=== PATIENT | male | born 1960 | race Hispanic/Latino ===

== ENCOUNTER 2016-11-22 15:03 | Emergency (ER) | payer MEDICAID, OTHER ==
[2016-11-22 15:29] VITALS: TEMP 97.3; O2SAT 95
--- NOTE | 2016-11-22 16:14 | C.PDOC ---
History Of Present Illness 56 y/o male with a hx of diabetes, c/o a laceration to the right lower extremity today. Patient reports throwing out the trash where some object jumped out and cut him. Patient is unsure of what cut him. Notes active bleeding , but denies any other complaints. Time Seen by Provider: 11/22/16 15:30 Chief Complaint (Nursing): Abnormal Skin Integrity History Per: Patient History/Exam Limitations: no limitations Onset/Duration Of Symptoms: Hrs Current Symptoms Are (Timing): Still Present Location Of Injury: Right: Leg Severity: Mild Recent travel outside of the [place]: No Additional History Per: Patient Past Medical History Reviewed: Historical Data, Nursing Documentation, Vital Signs Vital Signs: Last Vital Signs Temp 97.3 F L 11/22/16 15:20 Pulse 104 H 11/22/16 16:50 Resp 20 11/22/16 16:50 BP 154/93 H 11/22/16 16:50 Pulse Ox 95 11/22/16 20:48 - Medical History PMH: HTN Family History: States: Unknown Family Hx - Social History Hx Alcohol Use: Yes Hx Substance Use: No (former) - Immunization History Hx Tetanus Toxoid Vaccination: No Hx Influenza Vaccination: No Hx Pneumococcal Vaccination: No Review Of Systems Constitutional: Negative for: Fever, Chills Gastrointestinal: Negative for: Nausea, Vomiting Skin: Positive for: Lesions (Right lower extremity, active bleeding) Neurological: Negative for: Headache Physical Exam - Physical Exam Appears: Non-toxic, No Acute Distress Skin: Warm, Dry Extremity: Normal ROM, Capillary Refill (<2secs), Other (4cm linear laceration to the lateral right calf. Superficial bleeding controlled at this time.) Neurological/Psych: Oriented x3 ED Course And Treatment O2 Sat by Pulse Oximetry: 95 (RA) Pulse Ox Interpretation: Normal Laceration - Laceration Repair laceration to the right leg Wound Length (In cm): 4 Description Of Wound: Linear Wound Cleansed With: Sterile Saline Anesthesia: Lidocaine 2% (4 ml) Wound Examination: Irrigated With Saline, No FB With Wound Exploration, No Tendon Injury With Wound Exploration Wound Closure: Suture (8) Suture Technique And Material Used: Nylon (4.0) Wound Complexity: Simple Medical Decision Making Medical Decision Making: Impression: * Laceration to the right lower extremity today. Plans: * Tetanus * wound repair Patient tolerated the procedure well with no complications. Wound was cleaned and draped in a sterile fashion. Patient was sent home with care instructions. Patient advised to follow up with PMD for further evaluation and to return if symptoms worsens. Disposition Counseled Patient/Family Regarding: Diagnosis, Need For Followup - Disposition Referrals: [facility] [Outside] Disposition: HOME/ ROUTINE Disposition Time: 16:12 Condition: STABLE Additional Instructions: Refer to your general instructions for suture/wound care. Keep area clean and dry for 48 hours. Return to your doctor or the Emergency Department for suture removal in 10 days. See your doctor or [facility] for wound evaluation in 3 days. Return to the Emergency Department immediately if you have redness, pain, puss drainage from wound. Instructions: Care For Your Stitches (ED), Laceration (ED) Forms: General Discharge Instructions, Work Excuse - POA Present On Arrival: None - Clinical Impression Clinical Impression: Laceration of leg - Scribe Statement The provider has reviewed the documentation as recorded by the Kajalibignacia ruff All medical record entries made by the Kajalibignacia were at my direction and personally dictated by me. I have reviewed the chart and agree that the record accurately reflects my personal performance of the history, physical exam, medical decision making, and the department course for this patient. I have also personally directed, reviewed, and agree with the discharge instructions and disposition.
[2016-11-22 16:51] VITALS: BP 154/93; PULSE 104; RESP 20
== END 2016-11-22 16:50 | disposition home or self-care (01) ==
LOC: C.ER 15:03
DX: S81.811A Laceration without foreign body, right lower leg, initial encounter (principal); W45.8XXA Other foreign body or object entering through skin, initial encounter

== ENCOUNTER 2016-11-30 14:55 | Emergency (ER) | payer OTHER ==
[2016-11-30 15:01] VITALS: BP 136/89; PULSE 104; RESP 20; TEMP 98.4; O2SAT 98
--- NOTE | 2016-11-30 15:15 | C.PDOC ---
History Of Present Illness 56 yo male come in for scheduled sutures removal from Right lower leg after was seen here in ED on 11/22/16 and laceration repaired with sutures. Pt admits, ambulatory without difficulty. denies fever, chills, wound swelling, redness or discharges, denies weakness, sensory or vascular deficits to injured leg. Ambulate to Ed for evaluation, not in any apparent distress. Time Seen by Provider: 11/30/16 15:05 Chief Complaint (Nursing): Suture/Staple Removal History Per: Patient Past Medical History Reviewed: Historical Data, Nursing Documentation, Vital Signs Vital Signs: Last Vital Signs Temp 98.4 F 11/30/16 14:58 Pulse 104 H 11/30/16 14:58 Resp 20 11/30/16 14:58 BP 136/89 11/30/16 14:58 Pulse Ox 98 11/30/16 15:16 - Medical History PMH: HTN Family History: States: Unknown Family Hx - Social History Hx Alcohol Use: Yes Hx Substance Use: No (former) - Immunization History Hx Tetanus Toxoid Vaccination: Yes Hx Influenza Vaccination: No Hx Pneumococcal Vaccination: No Review Of Systems Except As Marked, All Systems Reviewed And Found Negative. Constitutional: Negative for: Fever, Chills Musculoskeletal: Negative for: Leg Pain Skin: Positive for: Lesions Neurological: Negative for: Weakness, Numbness Physical Exam - Physical Exam Appears: Well, Non-toxic, No Acute Distress Skin: Normal Color, Warm, Other (Right leg: well healing laceration to Right lower leg closed with sutures #4, no edema, erythema, no wound draining.) Extremity: Normal ROM (RLE), No Tenderness, No Pedal Edema, No Deformity, No Swelling Neurological/Psych: Oriented x3, Normal Speech, Normal Motor, Normal Sensation, Normal Reflexes ED Course And Treatment O2 Sat by Pulse Oximetry: 98 Progress Note: O re-eval, pt is afebrile, hemodynamicaly stable. NOn-toxic. Ambulatoy rin ED with stable gait. Right leg: sutures removed w/o difficulty # 4. FAROM, no neurovascular deficits, no cellulitis. Pt advised. ref. to f/u with PMD in 2-3 days for re-eavl. return if any new changes. Disposition Counseled Patient/Family Regarding: Diagnosis, Need For Followup - Disposition Referrals: Kemi Marquez MD [Staff Provider] - Disposition: HOME/ ROUTINE Disposition Time: 15:15 Condition: STABLE Additional Instructions: Follow up with PMD in 2 -3 days for re-evaluation. Return to ED if any worsening or new changes. Instructions: Stitches Removal (ED) Forms: [facility] (Serbian) - Clinical Impression Clinical Impression: Removal of suture
== END 2016-11-30 15:25 | disposition home or self-care (01) ==
LOC: C.ER 14:55
DX: Z48.02 Encounter for removal of sutures (principal)

== ENCOUNTER 2017-03-14 16:17 | Inpatient (IN) | payer OTHER ==
--- NOTE | 2017-03-14 16:25 | C.PDOC ---
History Of Present Illness Patient is a 57 y/o M with hx of multiple CVA and tia, on aggrenox, with residual L sided weakness, presenting with worsening weakness since 3pm. Patient reports that at 3pm he developed slurred speech and L sided weakness. At baseline patient able to ambulate independently and has no slurred speech. Denies chest pain or SOB. Time Seen by Provider: 03/14/17 16:20 Past Medical History Vital Signs: Last Vital Signs Temp 97.9 F 03/14/17 19:36 Pulse 98 H 03/14/17 19:36 Resp 20 03/14/17 19:36 BP 136/91 H 03/14/17 19:36 Pulse Ox 96 03/14/17 19:36 - Medical History PMH: HTN Family History: States: Unknown Family Hx - Social History Hx Alcohol Use: Yes Hx Substance Use: No (former) - Immunization History Hx Tetanus Toxoid Vaccination: Yes Hx Influenza Vaccination: No Hx Pneumococcal Vaccination: No Review Of Systems Constitutional: Negative for: Fever Cardiovascular: Negative for: Chest Pain, Palpitations, Light Headedness Respiratory: Negative for: Cough, Shortness of Breath, SOB with Excertion, Wheezing Gastrointestinal: Negative for: Nausea, Vomiting, Abdominal Pain, Diarrhea, Constipation Genitourinary: Negative for: Dysuria Musculoskeletal: Negative for: Neck Pain Neurological: Positive for: Weakness, Incoordination, Change in Speech, Headache Physical Exam - Physical Exam Appears: Well, Non-toxic, No Acute Distress Head: Atraumatic, Normacephalic Eye(s): bilateral: Normal Inspection, PERRL, EOMI Neck: Supple Chest: Symmetrical Cardiovascular: Rhythm Regular Respiratory: Normal Breath Sounds, No Rales, No Rhonchi, No Wheezing Gastrointestinal/Abdominal: Soft, No Tenderness, No Distention Back: Normal Inspection, No CVA Tenderness Extremity: Other (L sided weakness) Neurological/Psych: Oriented x3, No Normal Speech (slurred speech), No Normal Cranial Nerves (L sided facial droop), No Normal Motor ED Course And Treatment - Laboratory Results Result Diagrams: 03/14/17 16:51 03/14/17 16:51 - CT Scan/US CT - Head Other Rad Studies (CT/US): Read By Radiologist, Radiology Report Reviewed CT/US Interpretation: PROCEDURE: CT HEAD WITHOUT CONTRAST. HISTORY: Code Stroke. COMPARISON: None available. TECHNIQUE: Axial computed tomography images were obtained through the head/brain without intravenous contrast. Radiation dose: Total exam DLP = 1022.75 mGy-cm. This CT exam was performed using one or more of the following dose reduction techniques: Automated exposure control, adjustment of the mA and/or kV according to patient size, and/ or use of iterative reconstruction technique. FINDINGS: HEMORRHAGE: No acute parenchymal, subarachnoid or extra-axial hemorrhage. BRAIN: There appears to be minor chronic periventricular white matter ischemic changes. Mild generalized volume loss. Minor vascular calcifications both vertebral arteries. VENTRICLES: No obstructive hydrocephalus. CALVARIUM: Calvarium intact. PARANASAL SINUSES: Minimal mucosal thickening seen within a few ethmoid air cells. MASTOID AIR CELLS: Unremarkable as visualized. No inflammatory changes. OTHER FINDINGS: None. IMPRESSION: No acute intracranial hemorrhage. Minor chronic periventricular white matter ischemic changes CTA Other Rad Studies (CT/US): Read By Radiologist, Radiology Report Reviewed CT/US Interpretation: PROCEDURE: CTA of the neck and brain 03/14/2017. HISTORY : Weakness. COMPARISON: Correlation made with noncontrast CT scan brain obtained earlier same day. TECHNIQUE: Contiguous helical/transaxial images of the neck were obtained from the level of the skull-base to the superior mediastinum in the arteriographic phase of enhancement. Coronal and sagittal reformats or also generated. IV contrast dose: 100 cc Visipaque 320. Radiation Dose - DLP: 665.74 mGy-cm. This CT exam was performed using one or more of the following dose reduction techniques: Automated exposure control, adjustment of the mA and/or kV according to patient size, and/or use of iterative reconstruction technique. FINDINGS: The aorta is widely patent with only minimal calcified plaque along the aortic arch. The origins of the great vessels widely patent. The left and right common carotid arteries widely patent. There is some minimal soft plaque along the left carotid bifurcation that does not appear to result in any significant stenosis. The internal carotid arteries including the petrous, cavernous and supraclinoid segments also widely patent. Visualized major branches of the [place] are also patent. The middle and anterior cerebral arteries and distal vasculature are relatively symmetric as well. No evidence of large aneurysm nor vascular malformation. The cervical vertebral arteries are relatively symmetric and patent throughout. Atherosclerotic plaque changes with significant narrowing of the proximal margin of the intracranial portion left vertebral artery noted at approximately the level of the foramen magnum and at this same level that vascular calcifications seen on prior noncontrast study. . The the vertebral artery distal to this area of stenosis is a patent. Basilar artery patent. The distal posterior cerebral artery is relatively symmetric so far as can be seen. No evidence of large aneurysm nor vascular malformation. Multilevel degenerative spondylosis of the cervical spine. IMPRESSION: There is significant stenosis of the proximal margin left vertebral artery just distal to its entry into the dura at approximately the level of the foramen magnum the. The remaining intracranial circulation is grossly unremarkable without evidence of occlusion significant stenosis or large aneurysm/vascular malformation. Minor soft plaque changes seen at the left carotid bifurcation with no significant stenosis at this level. NIHSS Stroke Scale - Date/Time Evaluation Performed Date Performed: 03/14/17 Time Performed: 16:22 When Was NIHSS Performed: Baseline - How Severe is the Stroke Level of Consciousness: 0=Alert LOC to Questions: 0=Both comments correct LOC to commands: 0=Obeys both correctly Best Gaze: 0=Normal Visual: 0=No visual loss Facial: 3=Complete unilateral paralysis Motor Arm - Left: 2=Falls before 10 sec Motor Arm - Right: 0=No drift Motor Leg - Left: 2=Falls before 5 sec Motor Leg - Right: 0=No drift Limb Ataxia: 0=Absent Sensory: 0=Normal Best Language: 0=No aphasia Dysarthia: 1=Mild to moderate slurring Extinction & Inattention (Neglect): 0=Normal, no object Score: 8 rTPA Inclusion/Exclusion - Refusal of Treatment Patient Refused Treatment: Yes Medical Decision Making Medical Decision Making: Code stroke immediately called. Due to L sided droop, L weakness and droop, CTA ordered in consultation with neurologist Dr. Kennedy. She is requesting additional aggrenox dose. 4:39PM CT head: No acute intracranial hemorrhage. Minor chronic periventricular white matter ischemic changes 4:47PM Had extensive conversation with patient about TPA. He is refusing TPA. He reports prior TPA infusion and was told "you might bleed out." Patient reports that because of this he is refusing TPA. I spoke with patient and sister at length about the risks and benefits of TPA. Patient has almost no movement of L leg and arm and I spoke with them both about recommending TPA to prevent further disability, or . Explained to patient that without TPA this neuro status is likely permanent. Patient is AAOx3 and reports understanding the risks of refusing TPA. Sister at bedside and also understands that patient is refusing standard medical treatment of ischemic stroke. Cpr Ambulance Driver also spoke to patient and sister and continues to refuse TPA. Patient has hx of schizophrenia but has never had POA. 5:04PM EKG shows NSR at 99bpm with 1st degree AV block 5:20PM Spoke to Dr. Kennedy who evaluated patient with video. Facial droop improving and speech improving. She reports that he is not at tpa candidate. Requesting MRI. Admitted to Dr. Marquez for cva/tia 6:21PM MRI unable to be performed due to patient's weight per industrial hygiene technician Disposition - Disposition Disposition: HOSPITALIZED Disposition Time: 16:22 Condition: SERIOUS - Clinical Impression Clinical Impression: CVA (cerebral vascular accident)
[2017-03-14] MEDS ORDERED: Aspirin-Dipyridamole 200-25 mg ER Cap PO STA (16:27)
[2017-03-14] MEDS ORDERED: Iodixanol 320 mg/ml 150 ml Bottle IV ONE (16:30)
--- NOTE | 2017-03-14 16:37 | CT ---
PROCEDURE: CT HEAD WITHOUT CONTRAST. HISTORY: Code Stroke COMPARISON: None available. TECHNIQUE: Axial computed tomography images were obtained through the head/brain without intravenous contrast. Radiation dose: Total exam DLP = 1022.75 mGy-cm. This CT exam was performed using one or more of the following dose reduction techniques: Automated exposure control, adjustment of the mA and/or kV according to patient size, and/or use of iterative reconstruction technique. FINDINGS: HEMORRHAGE: No acute parenchymal, subarachnoid or extra-axial hemorrhage. BRAIN: There appears to be minor chronic periventricular white matter ischemic changes. Mild generalized volume loss. Minor vascular calcifications both vertebral arteries. VENTRICLES: No obstructive hydrocephalus. CALVARIUM: Calvarium intact. PARANASAL SINUSES: Minimal mucosal thickening seen within a few ethmoid air cells MASTOID AIR CELLS: Unremarkable as visualized. No inflammatory changes. OTHER FINDINGS: None. IMPRESSION: No acute intracranial hemorrhage. Minor chronic periventricular white matter ischemic changes
[2017-03-14 16:59] LABS: BASO % 0.4 % (0.0-2.0); EOS # 0.3 K/uL (0.0-0.7); EOS % 2.7 % (0.0-4.0); HEMOGLOBIN 13.9 g/dL (12.0-18.0); LYMPH # 1.5 K/uL (1.0-4.3); MEAN CELL VOLUME 88.4 fL (80.0-94.0); MEAN CORPUSCULAR HEMOGLOBIN 30.8 pg (27.0-31.0); MEAN CORPUSCULAR HGB CONC 34.8 g/dL (33.0-37.0); MEAN PLATELET VOLUME 7.6 fL (7.2-11.7); MONO # 0.9 K/uL (0.0-0.8); MONO % 9.4 % (0.0-10.0); NEUT # 6.9 K/uL (1.8-7.0); NEUT % 71.5 % (50.0-75.0); NRBC % 0.1 % (0.0-2.0); RBC 4.52 Mil/uL (4.40-5.90); RED CELL DISTRIBUTION WIDTH 14.2 % (11.5-14.5); WHITE BLOOD COUNT 9.6 K/uL (4.8-10.8)
[2017-03-14 17:07] LABS: PROTHROMBIN TIME 11.5 SECONDS (9.7-12.2)
[2017-03-14 17:10] LABS: ALB/GLOB RATIO 1.1 (1.0-2.1); ALBUMIN 3.8 g/dL (3.5-5.0); ALT/SGPT 31 U/L (21-72); AST/SGOT 28 U/L (17-59); BLOOD UREA NITROGEN 11 mg/dL (9-20); CALCIUM 9.3 mg/dl (8.6-10.4); GFR AFRICAN-AMERICAN > 60; GFR NON-AFRICAN AMERICAN > 60; HDL CHOLESTEROL 50 mg/dL (30-70)
--- NOTE | 2017-03-14 17:13 | CT ---
PROCEDURE: CTA of the neck and brain 03/14/2017. HISTORY: Weakness COMPARISON: Correlation made with noncontrast CT scan brain obtained earlier same day TECHNIQUE: Contiguous helical/transaxial images of the neck were obtained from the level of the skull-base to the superior mediastinum in the arteriographic phase of enhancement. Coronal and sagittal reformats or also generated. IV contrast dose: 100 cc Visipaque 320 Radiation Dose - DLP: 665.74 mGy-cm This CT exam was performed using one or more of the following dose reduction techniques: Automated exposure control, adjustment of the mA and/or kV according to patient size, and/or use of iterative reconstruction technique. FINDINGS: The aorta is widely patent with only minimal calcified plaque along the aortic arch. The origins of the great vessels widely patent. The left and right common carotid arteries widely patent. There is some minimal soft plaque along the left carotid bifurcation that does not appear to result in any significant stenosis. The internal carotid arteries including the petrous, cavernous and supraclinoid segments also widely patent. Visualized major branches of the [place] of [place] are also patent. The middle and anterior cerebral arteries and distal vasculature are relatively symmetric as well. No evidence of large aneurysm nor vascular malformation. The cervical vertebral arteries are relatively symmetric and patent throughout. Atherosclerotic plaque changes with significant narrowing of the proximal margin of the intracranial portion left vertebral artery noted at approximately the level of the foramen magnum and at this same level that vascular calcifications seen on prior noncontrast study. . The the vertebral artery distal to this area of stenosis is a patent. Basilar artery patent. The distal posterior cerebral artery is relatively symmetric so far as can be seen. No evidence of large aneurysm nor vascular malformation. Multilevel degenerative spondylosis of the cervical spine. IMPRESSION: There is significant stenosis of the proximal margin left vertebral artery just distal to its entry into the dura at approximately the level of the foramen magnum the. The remaining intracranial circulation is grossly unremarkable without evidence of occlusion significant stenosis or large aneurysm/vascular malformation. Minor soft plaque changes seen at the left carotid bifurcation with no significant stenosis at this level.
[2017-03-14 17:21] LABS: LDL CHOLESTEROL 140 mg/dL (0-129)
--- NOTE | 2017-03-14 17:30 | RAD ---
HISTORY: Stroke. Portable study 17:00 COMPARISON: No prior. FINDINGS: LUNGS: No active pulmonary disease. PLEURA: No significant pleural effusion identified, no pneumothorax apparent. CARDIOVASCULAR: Cardiomegaly. No evidence of acute, significant cardiovascular disease. OSSEOUS STRUCTURES: No significant abnormalities. VISUALIZED UPPER ABDOMEN: Normal. OTHER FINDINGS: None. IMPRESSION: No active disease.
[2017-03-15] MEDS ORDERED: Tramadol 25 mg PO STA (01:53)
[2017-03-15] MEDS: Sodium Chloride 0.9% 1,000 ML IV SCH ×2 (01:59→02:30)
--- NOTE | 2017-03-15 07:54 | CP.PCM.PN ---
Subjective - Date & Time of Evaluation Date of Evaluation: 03/15/17 Time of Evaluation: 07:44 - Subjective Subjective: PGY-[address] Marquez's service: Pt seen and examined at bedside. Nursing reports no acute events overnight. Speech therapy at bedside report pt passed swallow evaluation. Patient oriented x 3, talking in complete sentences. Patient reports increased left sided weakness, slurred speech he felt yesterday has completely resolved. He denies headache, vision changes, or weakness in his extremities. He reports feeling anxious and repeatedly is asking questions about "how to know if he has colon cancer." Pt does not fit in the MRI trailer due to his abdominal circumference per aviation safety equipment technician Lorraien, so per instructions from Dr. Phillips, pts neurologist, he will have follow up CT head. Pt reports his right lower abdominal pain from yesterday has nearly subsided after "having a large BM." He denies nausea or vomiting overnight. He has been tolerating diet without issue. He is found drinking oral contrast for CT ordered overnight. Patient is a 57 year old male with hx of multiple CVA and tia, on aggrenox, with residual L sided weakness, who presented to [facility] ED yesterday evening with worsening weakness since 3pm. Patient reports that at 3pm he developed slurred speech and L sided weakness. At baseline patient able to ambulate independently and has no slurred speech. Denies chest pain or SOB. Patient denied recent drug use. Objective - Vital Signs/Intake and Output Vital Signs (last 24 hours): Temp Pulse Resp BP Pulse Ox 97.9 F 90 20 164/79 H 98 03/14/17 23:40 03/15/17 04:00 03/14/17 23:40 03/14/17 23:40 03/14/17 23:40 Intake and Output: 03/15/17 03/15/17 06:59 18:59 Intake Total 640 Balance 640 - Medications Medications: Current Medications Acetaminophen (Tylenol 325mg Tab) 650 mg PO Q4 PRN PRN Reason: Pain, moderate (4-7) Aspirin (Ecotrin) 81 mg PO DAILY [facility]EV[facility] Clonazepam (Klonopin) 0.5 mg PO QID PRN PRN Reason: Anxiety Enoxaparin Sodium (Lovenox) 40 mg SC DAILY STEVE Sodium Chloride (Sodium Chloride 0.9%) 1,000 mls @ 100 mls/hr IV .Q10H STEVE Last Admin: 03/15/17 02:30 Dose: Not Given Insulin Aspart (Novolog) 0 unit SC ACHS [facility]EVE PRN Reason: Protocol Losartan Potassium (Cozaar) 100 mg PO DAILY STEVE - Labs Labs: 03/14/17 16:51 03/14/17 16:51 PT 11.5 SECONDS (9.7-12.2) 03/14/17 16:51 INR 1.0 03/14/17 16:51 APTT 34 SECONDS (21-34) 03/14/17 16:51 - Constitutional Appears: Non-toxic, No Acute Distress - Head Exam Head Exam: ATRAUMATIC, NORMAL INSPECTION - Eye Exam Eye Exam: EOMI, Normal appearance. absent: Scleral icterus Pupil Exam: PERRL - ENT Exam ENT Exam: Mucous Membranes Moist - Neck Exam Neck Exam: Full ROM Additional comments: Due to pt body habitus JVD difficult to assess - Respiratory Exam Respiratory Exam: Clear to Ausculation Bilateral, NORMAL BREATHING PATTERN. absent: Rales, Rhonchi, Wheezes - Cardiovascular Exam Cardiovascular Exam: REGULAR RHYTHM, +S1, +S2 - GI/Abdominal Exam GI & Abdominal Exam: Soft, Tenderness (minimal tenderness to RLQ), Normal Bowel Sounds Additional comments: large body habitus reducible umbilical hernia Negative rovsing, mcburney point, no rebound tenderness - Extremities Exam Extremities Exam: Normal Inspection - Back Exam Back Exam: absent: CVA tenderness (L), CVA tenderness (R) - Neurological Exam Neurological Exam: Alert, Awake, Oriented x3 - Psychiatric Exam Psychiatric exam: Normal Affect, Normal Mood - Skin Skin Exam: Dry, Normal Color, Warm Assessment and Plan - Assessment and Plan (Free Text) Plan: Appendicitis: WBC 9.6, afebrile CT A/P (03/15/17): Distended appendix up to 10mm diameter, with periappendiceal inflammatory changes. Consistent with acute appendicitis. General surgery, Dr. Lemos, help appreciated: - plan for OR tomorrow AM - NPO MN Cipro 400mg IV Q12H (start 03/15/17) Flagyl 500mg IV Q12H (start 03/15/17) Pre-op tests: CXR (03/14/17) NAD Coags WNL EKG (03/14/17): NSR, 1st degree AV block. TIA Hx of CVA with residual left sided weakness EKG (03/14/17): NSR, 1st degree AV block. CTA Head/neck (03/14/17): There is significant stenosis of the proximal margin left vertebral artery just distal to its entry into the dura at approximately the level of the foramen magnum. The remaining intracranial circulation is grossly unremarkable without evidence of occlusion significant stenosis or large aneurysm/vascular malformation. Minor soft plaque changes seen at the left carotid bifurcation with no significant stenosis at this level. - MRI ordered but unable to be completed due to pt habitus CT Head (03/14/17): No acute intracranial hemorrhage. Minor chronic periventricular white matter ischemic changes - follow up CT head (03/15/17): Normal CT head. No intracranial mass, hemorrhage or infarct. Troponin negative x 1 Neurology: Dr. Phillips, help appreciated - continue Aggrenox - f/u UDS - because pt unable to fit into MRI, do follow up CT Head, if negative pt can be discharged Hypertension Well controlled Cozaar 100mg PO Daily HOLD Coreg 25mg PO BID until UDS negative for cocaine Weakness PT/OT: f/u reccs Diabetes Mellitus, Type Two ISS A1C: 8.4 Accuchecks Crestor 20mg PO HS Cozaar 100mg PO Daily Lipid panel: Cholesterol 225, LDL 140, HDL 50, Triglycerides 186 Anxiety Klonopin 0.5mg QID PO PRN BPH Flomax 0.4mg PO Daily Hx Substance Abuse f/u UDS - pt denies cocaine for last 4 months Prophylaxis Lovenox 40mg SC Daily Protonix 40mg PO Daily SCDs Miguel Angel Gardiner PGY-2 All medical management per DR. MARQUEZ
[2017-03-15] MEDS: (Novolog) Insulin Aspart, Recombinant 100 u/ml 10 ml vial SC SCH ×4 (08:00→22:00)
[2017-03-15] MEDS ORDERED: Iohexol 240 (50 ml) PO ONE (08:45)
[2017-03-15] MEDS ORDERED: Enoxaparin 40 mg Syringe SC SCH (10:00)
--- NOTE | 2017-03-15 13:17 | CT ---
PROCEDURE: CT HEAD WITHOUT CONTRAST. HISTORY: unable to have MRI; hx CVA; f/u CT from yesterday COMPARISON: None available. TECHNIQUE: Axial computed tomography images were obtained through the head/brain without intravenous contrast. Radiation dose: Total exam DLP = 980.06 mGy-cm. This CT exam was performed using one or more of the following dose reduction techniques: Automated exposure control, adjustment of the mA and/or kV according to patient size, and/or use of iterative reconstruction technique. FINDINGS: HEMORRHAGE: No intracranial hemorrhage. BRAIN: No mass effect or edema. Minimal chronic periventricular white matter ischemic change. VENTRICLES: Unremarkable. No hydrocephalus. CALVARIUM: Unremarkable. PARANASAL SINUSES: Deviated nasal septum towards the right. No evidence of sinusitis. MASTOID AIR CELLS: Unremarkable as visualized. No inflammatory changes. OTHER FINDINGS: None. IMPRESSION: Normal CT of the Head. No intracranial mass, hemorrhage or evidence of acute infarct.
--- NOTE | 2017-03-15 13:42 | CT ---
PROCEDURE: CT Abdomen and Pelvis without intravenous contrast HISTORY: RLQ abdominal pain COMPARISON: None. TECHNIQUE: Without contrast.. Contrast Dose: 0 Radiation dose: Total exam DLP = 1095.99 mGy-cm. This CT exam was performed using one or more of the following dose reduction techniques: Automated exposure control, adjustment of the mA and/or kV according to patient size, and/or use of iterative reconstruction technique. FINDINGS: LOWER THORAX: Unremarkable. LIVER: Mild hepatomegaly. Diffusely diminished attenuation consistent with fatty infiltration. No focal mass. Smooth contour. No biliary dilatation. GALLBLADDER AND BILE DUCTS: Probable tiny dependent calculi in gallbladder neck. This is demonstrated on series 3, image 58. No mural thickening. No pericholecystic fluid. PANCREAS: Unremarkable. No gross lesion or ductal dilatation. SPLEEN: Unremarkable. ADRENALS: Unremarkable. No mass. KIDNEYS AND URETERS: Two left renal cysts. Upper pole, 5.3 cm. Lower pole parapelvic, 2.5 cm. No calculus. No hydronephrosis. VASCULATURE: Unremarkable. No aortic aneurysm. BOWEL: Unremarkable. No obstruction. No gross mural thickening. APPENDIX: Distended appendix up to 10 mm diameter, with periappendiceal inflammatory change. Findings consistent with acute appendicitis. No periappendiceal abscess. PERITONEUM: Unremarkable. No free fluid. No free air. LYMPH NODES: Unremarkable. No enlarged lymph nodes. BLADDER: Nondistended REPRODUCTIVE: Normal size. Coarse central calcification. BONES: No acute fracture. OTHER FINDINGS: None. IMPRESSION: Findings consistent with acute uncomplicated appendicitis. Hepatomegaly with fatty infiltration. Left renal cysts. The above findings were discussed by telephone with the nurse, Chandrika, on 6T, at 1:30 p.m. on 03/15/2017.
--- NOTE | 2017-03-15 13:57 | CON ---
DATE: HISTORY OF PRESENT ILLNESS: This is a 57-year-old white male with past medical history of multiple TIAs and CVA, on Aggrenox and with a residual left-sided weakness and came to the hospital with worsening of his weakness and also reported was slurred speech and slight left-sided weakness. Past medical history of high blood pressure, CVA and called to evaluate the patient. The patient is ambulating in the hallway. PAST MEDICAL HISTORY: Hypertension and CVA, TIA. SOCIAL HISTORY: Drinks. REVIEW OF SYSTEMS: Ten-point review of systems was negative except residual weakness of the left side. PHYSICAL EXAMINATION: HEENT: Normocephalic, atraumatic. NECK: Supple. NEUROLOGIC: Alert, awake, oriented x3. No aphasia. Cranial nerves II through XII were tested. Pupils reactive. EOM intact. Visual filed full. No facial asymmetry. Tongue midline. Motor examination: Moves all the extremity equally. Tone normal. Deep tendon reflexes 1+. Both plantars downgoing. Sensory appears intact. Cerebellar and gait, ambulating. IMPRESSION: Multiple transient ischemic attacks. CAT scan of the head did not show any acute stroke or no bleed. LABORATORY DATA: WBC 9.6, hemoglobin 13.9, hematocrit 40, platelet 252. Sodium 134, potassium 3.7, chloride 99, CO2 of 30, glucose 151, BUN 11, creatinine 0.7. PLAN: Continue present management. Aggrenox 1 p.o. twice a day. We will follow up. Walt Phillips MD
[2017-03-15 14:25] LABS: BARBITURATES, UR NEGATIVE (NEGATIVE); BENZODIAZEPINES, UR NEGATIVE (NEGATIVE); OPIATES, UR NEGATIVE (NEGATIVE); PHENCYCLIDINE, UR NEGATIVE (NEGATIVE)
[2017-03-15] MEDS: Pantoprazole 40 mg EC Tab PO SCH (17:12)
[2017-03-15] MEDS: metroNIDAZOLE IV 500 mg/100 ml 500 MG/100 ML BAG IVPB SCH (17:13)
[2017-03-15] MEDS: Ciprofloxacin 400mg/200ml D5W 400 MG/200 ML BAG IVPB SCH (17:13)
--- NOTE | 2017-03-15 17:52 | CP.PCM.CON ---
History of Present Illness - History of Present Illness History of Present Illness: General Surgery consult for Dr. Lemos Reasons for consult: Acute Appendictis 57 year old male with PMH of TIA/CVA who presents with RLQ abdominal pain that began yesterday morning. He also concurrently expereinced a TIA leading to left hemiplegia and left facial droop with slurred speech later that afternoon. The patient was brought to the ED by his family and managed by neurology primarily for his TIA. The patient reports that his RLQ abdominal pain has been constant since yesterday morning but has lessened in severity from a 9/10 on admission to a 4/10 currently on the VAS, after he was given Tylenol and Tramadol. The patient states that his pain worsens with eating and gets better with standing. He describes his pain as throbbing in nature and denies any radiation of the pain. The patient admits to nausea, diarrhea, weakness, and blurry vision on his left eye. He denies fevers/chills, headache, chest pain, palpitations, dyspnea, cough, vomiting, constipation, or dysuria. Positive Rovsings, obturator, and psoas signs are ellicited. Abdominal CT imaging reveals a distended appendix up to 10 mm diameter, with periappendicial inflammatory change consistent with acute appedicitis without abscess. PMH:Umbilical Hernia and direct abdominal hernia 6-8 years ago (neither treated ) , stenosis of the left vertebral artery, 7-8 TIA/CVA episodes beginning last July, Diabetes, HTN, Hypercholesteremia, Bipolar Disorder, Prostate cancer ( treated) PSH:Prostate cancer resection, Angioplasty (Feb 29 2016), Temporal artery cuaterization (head trauma in 2010) FHx:Diabetes, Heart Disease Allergies: Penicillin Social Hx:Denies Alcohol. Denies Tobacco. Admits to history of cocaine use, last use was August 21 2016. Medications: As per EMR Review of Systems - Review of Systems All systems: reviewed and no additional remarkable complaints except Review of Systems: As per HPI Past Patient History - Infectious Disease Hx of Infectious Diseases: None - Past Medical History & Family History Past Medical History?: Yes - Past Social History Smoking Status: Never Smoked - CARDIAC Hx Hypertension: Yes - NEUROLOGICAL HX Cerebrovascular Accident: Yes (residual left arm weakness) - ENDOCRINE/METABOLIC Hx Endocrine Disorders: Yes Hx Diabetes Mellitus Type 2: Yes - MUSCULOSKELETAL/RHEUMATOLOGICAL Hx Falls: Yes (from effects of TIA) - PSYCHIATRIC Hx Substance Use: No (former) - SURGICAL HISTORY Hx Surgeries: Yes Other/Comment: cranial aneurysm - ANESTHESIA Hx Anesthesia: Yes Hx Anesthesia Reactions: No Meds Allergies/Adverse Reactions: Allergies Allergy/AdvReac Type Severity Reaction Status Date / Time Penicillins Allergy Verified 11/30/16 15:01 - Medications Medications: Current Medications Acetaminophen (Tylenol 325mg Tab) 650 mg PO Q4 PRN PRN Reason: Pain, moderate (4-7) Carvedilol (Coreg) 25 mg PO BID [facility] Last Admin: 03/15/17 10:01 Dose: 25 mg Clonazepam (Klonopin) 0.5 mg PO QID PRN PRN Reason: Anxiety Dipyridamole/Aspirin (Aggrenox 25-200 Mg) 1 ea PO BID [facility] Last Admin: 03/15/17 17:13 Dose: 1 ea Divalproex Sodium (Depakote Dr) 1,500 mg PO 1000 STEVE Divalproex Sodium (Depakote Dr) 1,500 mg PO 2200 [facility] Ciprofloxacin (Cipro 400mg/200ml Dsw) 400 mg in 200 mls @ 133 mls/hr IVPB Q12H [facility] Last Admin: 03/15/17 17:13 Dose: 133 mls/hr Metronidazole (Flagyl) 500 mg in 100 mls @ 100 mls/hr IVPB Q8H [facility] Last Admin: 03/15/17 17:13 Dose: 100 mls/hr Insulin Aspart (Novolog) 0 unit SC ACHS [facility] PRN Reason: Protocol Last Admin: 03/15/17 17:33 Dose: Not Given Losartan Potassium (Cozaar) 100 mg PO DAILY [facility] Last Admin: 03/15/17 10:01 Dose: 100 mg Pantoprazole Sodium (Protonix Ec Tab) 40 mg PO Q24H [facility] Last Admin: 03/15/17 17:12 Dose: 40 mg Pneumococcal Polyvalent Vaccine (Pneumovax 23 Vaccine) 0.5 ml IM .ONCE ONE Stop: 03/16/17 10:01 Rosuvastatin Calcium (Crestor) 20 mg PO [facility] Physical Exam - Constitutional Appears: Well - Head Exam Head Exam: NORMAL INSPECTION Additional comments: Left sided Facial Droop - Eye Exam Pupil Exam: NORMAL ACCOMODATION Additional comments: Left eye has "blurry vision" - ENT Exam ENT Exam: Normal Exam - Neck Exam Neck exam: Positive for: Normal Inspection - Respiratory Exam Respiratory Exam: NORMAL BREATHING PATTERN - Cardiovascular Exam Cardiovascular Exam: REGULAR RHYTHM, RRR, +S1, +S2 - GI/Abdominal Exam GI & Abdominal Exam: Hernia, Soft, Tenderness. absent: Distended, Firm, Guarding Additional comments: TTP in RLQ - Extremities Exam Extremities exam: Positive for: normal inspection - Back Exam Back exam: NORMAL INSPECTION - Neurological Exam Neurological exam: Alert, Oriented x3 Additional comments: CN 7 palsy on left side Left side blurry vision Left UE and LE 3/5 motor strength normal cutaneous sensation b/l UE and LE - Psychiatric Exam Psychiatric exam: Normal Affect, Normal Mood - Skin Skin Exam: Intact, Normal Color Results - Vital Signs Recent Vital Signs: Last Vital Signs Temp 97.6 F 03/15/17 15:35 Pulse 90 03/15/17 15:35 Resp 18 03/15/17 15:35 BP 120/81 03/15/17 15:35 Pulse Ox 96 03/15/17 15:35 - Labs Result Diagrams: 03/14/17 16:51 03/14/17 16:51 Labs: Laboratory Results - last 24 hr 03/14/17 03/15/17 03/15/17 21:33 02:14 06:32 POC Glucose (mg/dL) 184 H 147 H 101 Urine Opiates Screen Urine Methadone Screen Ur Barbiturates Screen Ur Phencyclidine Scrn Ur Amphetamines Screen U Benzodiazepines Scrn U Oth Cocaine Metabols U Cannabinoids Screen 03/15/17 03/15/17 03/15/17 12:05 13:51 16:59 POC Glucose (mg/dL) 148 H 122 H Urine Opiates Screen Negative Urine Methadone Screen Negative Ur Barbiturates Screen Negative Ur Phencyclidine Scrn Negative Ur Amphetamines Screen Negative U Benzodiazepines Scrn Negative U Oth Cocaine Metabols Negative U Cannabinoids Screen Negative Assessment & Plan - Assessment and Plan (Free Text) Assessment: 57 year old male presents with Left Hemiplegia and RLQ pain, Abdominal CT reveals Acute Appendicitis Plan: - OR tomorrow at 8am for Laproscopic Appendectomy - NPO past MN - Hold Lovenox - Pain control - IV Antibiotics - Glucose control - Discussed with Dr. Aminta Moss PGY1 - Date & Time Date: 03/15/17 Time: 16:55
[2017-03-15] MEDS ORDERED: Aspirin-Dipyridamole 200-25 mg ER Cap PO SCH (18:00)
[2017-03-15] MEDS: Divalproex 500 mg DR Tab PO SCH (21:47)
[2017-03-16] MEDS: metroNIDAZOLE IV 500 mg/100 ml 500 MG/100 ML BAG IVPB SCH ×3 (00:13→16:20)
[2017-03-16] MEDS: Ciprofloxacin 400mg/200ml D5W 400 MG/200 ML BAG IVPB SCH ×2 (05:07→17:28)
[2017-03-16 07:32] LABS: BASO % 0.4 % (0.0-2.0); EOS # 0.3 K/uL (0.0-0.7); EOS % 4.6 % (0.0-4.0); HEMOGLOBIN 13.3 g/dL (12.0-18.0); LYMPH # 1.6 K/uL (1.0-4.3); LYMPH % 24.8 % (20.0-40.0); MEAN CELL VOLUME 88.7 fL (80.0-94.0); MEAN CORPUSCULAR HEMOGLOBIN 31.1 pg (27.0-31.0); MEAN CORPUSCULAR HGB CONC 35.1 g/dL (33.0-37.0); MONO # 0.8 K/uL (0.0-0.8); MONO % 12.3 % (0.0-10.0); NEUT # 3.7 K/uL (1.8-7.0); NEUT % 57.9 % (50.0-75.0); RBC 4.27 Mil/uL (4.40-5.90); RED CELL DISTRIBUTION WIDTH 14.3 % (11.5-14.5); WHITE BLOOD COUNT 6.4 K/uL (4.8-10.8)
[2017-03-16] MEDS: (Novolog) Insulin Aspart, Recombinant 100 u/ml 10 ml vial SC SCH ×4 (07:54→21:37)
[2017-03-16 07:59] LABS: ALB/GLOB RATIO 1.1 (1.0-2.1); ALBUMIN 3.6 g/dL (3.5-5.0); ALT/SGPT 28 U/L (21-72); AST/SGOT 22 U/L (17-59); BLOOD UREA NITROGEN 13 mg/dL (9-20); CALCIUM 9.2 mg/dl (8.6-10.4); GFR AFRICAN-AMERICAN > 60; GFR NON-AFRICAN AMERICAN > 60; MAGNESIUM 1.7 mg/dL (1.6-2.3)
[2017-03-16] MEDS ORDERED: Midazolam 2 MG/2 ML VIAL ONE (08:21)
[2017-03-16] MEDS ORDERED: Propofol 10 mg/ml Inj (20 ML) ONE (08:21)
[2017-03-16] MEDS ORDERED: Succinylcholine Chloride 20 mg/ml Syr (5 ml) IV ONE (08:26)
[2017-03-16] MEDS ORDERED: Rocuronium 10 mg/ml (5 ml) ONE ×2 (08:26→09:57)
[2017-03-16] MEDS ORDERED: Phenylephrine 10 mg/ml Inj ONE (08:44)
[2017-03-16] MEDS ORDERED: Pneumococcal 23-Valent Vaccine IM ONE (10:00)
[2017-03-16] MEDS ORDERED: Morphine 4 MG/ML VIAL ONE (10:09)
[2017-03-16] MEDS ORDERED: Neostigmine Methylsulfate 3mg/3ml Syringe IV ONE (10:45)
--- NOTE | 2017-03-16 11:05 | PCM.SURG1 ---
Surgeon's Initial Post Op Note - Surgeon's Notes Surgeon: Dr. Lemos Aircraft Maintenance Supervisor: Dr. Pineda PGY2 Type of Anesthesia: General Endo Pre-Operative Diagnosis: Acute Appendicitis Operative Findings: See operative dictation Post-Operative Diagnosis: Chronic Appendicitis Operation Performed: Open appendectomy, Umbilical Hernia Repair Specimen/Specimens Removed: Appendix Estimated Blood Loss: EBL {In ML}: 20 Blood Products Given: N/A Drains Used: No Drains Post-Op Condition: Good Date of Surgery/Procedure: 03/16/17 Time of Surgery/Procedure: 11:06
[2017-03-16] MEDS: Divalproex 500 mg DR Tab PO SCH ×2 (14:33→21:36)
[2017-03-16 16:38] VITALS: RESP 20
[2017-03-16] MEDS: Pantoprazole 40 mg EC Tab PO SCH (17:27)
[2017-03-17] MEDS: Ciprofloxacin 400mg/200ml D5W 400 MG/200 ML BAG IVPB SCH ×2 (04:03→17:16)
[2017-03-17] MEDS: (Novolog) Insulin Aspart, Recombinant 100 u/ml 10 ml vial SC SCH ×4 (07:59→22:35)
[2017-03-17] MEDS: metroNIDAZOLE IV 500 mg/100 ml 500 MG/100 ML BAG IVPB SCH ×3 (08:28→16:45)
--- NOTE | 2017-03-17 08:56 | CP.PCM.PN ---
Subjective - Date & Time of Evaluation Date of Evaluation: 03/17/17 Time of Evaluation: 08:53 - Subjective Subjective: General Surgery Progress note for Dr. Lemos Pt seen and examined this AM at bedside. Tolerating diet, pain well controlled, ambulating passing gas moving bowels.Overall doing very well post operatively. Objective - Vital Signs/Intake and Output Vital Signs (last 24 hours): Temp Pulse Resp BP Pulse Ox 98.2 F 107 H 20 130/86 94 L 03/17/17 04:51 03/17/17 04:51 03/17/17 04:51 03/17/17 04:51 03/17/17 04:51 Intake and Output: 03/17/17 03/17/17 06:59 18:59 Intake Total 820 Balance 820 - Medications Medications: Current Medications Acetaminophen (Tylenol 325mg Tab) 650 mg PO Q4 PRN PRN Reason: Pain, Mild (1-3) Carvedilol (Coreg) 25 mg PO BID [facility] Last Admin: 03/16/17 17:36 Dose: 25 mg Clonazepam (Klonopin) 0.5 mg PO QID PRN PRN Reason: Anxiety Dipyridamole/Aspirin (Aggrenox 25-200 Mg) 1 ea PO BID [facility] Last Admin: 03/15/17 17:13 Dose: 1 ea Divalproex Sodium (Depakote Dr) 1,500 mg PO 1000 [facility] Last Admin: 03/16/17 14:33 Dose: Not Given Divalproex Sodium (Depakote Dr) 1,500 mg PO 2200 [facility] Last Admin: 03/16/17 21:36 Dose: 1,500 mg Hydromorphone HCl (Dilaudid) 2 mg IVP Q4H PRN PRN Reason: Pain, moderate (4-7) Last Admin: 03/17/17 04:00 Dose: 2 mg Ciprofloxacin (Cipro 400mg/200ml Dsw) 400 mg in 200 mls @ 133 mls/hr IVPB Q12H [facility] Last Admin: 03/17/17 04:03 Dose: 133 mls/hr Metronidazole (Flagyl) 500 mg in 100 mls @ 100 mls/hr IVPB Q8H [facility] Last Admin: 03/17/17 08:28 Dose: 100 mls/hr Insulin Aspart (Novolog) 0 unit SC ACHS [facility] PRN Reason: Protocol Last Admin: 03/17/17 07:59 Dose: Not Given Losartan Potassium (Cozaar) 100 mg PO DAILY [facility] Last Admin: 03/16/17 14:33 Dose: Not Given Pantoprazole Sodium (Protonix Ec Tab) 40 mg PO Q24H [facility] Last Admin: 03/16/17 17:27 Dose: 40 mg Rosuvastatin Calcium (Crestor) 20 mg PO HS [facility] Last Admin: 03/16/17 21:36 Dose: 20 mg - Labs Labs: 03/16/17 07:17 03/16/17 07:17 PT 11.5 SECONDS (9.7-12.2) 03/14/17 16:51 INR 1.0 03/14/17 16:51 APTT 34 SECONDS (21-34) 03/14/17 16:51 - Constitutional Appears: Non-toxic, No Acute Distress - Head Exam Head Exam: ATRAUMATIC, NORMOCEPHALIC - Eye Exam Eye Exam: EOMI, Normal appearance - ENT Exam ENT Exam: Mucous Membranes Moist - Respiratory Exam Respiratory Exam: NORMAL BREATHING PATTERN - Cardiovascular Exam Cardiovascular Exam: +S1, +S2 - GI/Abdominal Exam GI & Abdominal Exam: Soft. absent: Firm, Guarding, Rigid, Tenderness Additional comments: Dressings clean dry and intact - Neurological Exam Neurological Exam: Alert, Awake - Psychiatric Exam Psychiatric exam: Normal Affect, Normal Mood - Skin Skin Exam: Dry, Intact Assessment and Plan - Assessment and Plan (Free Text) Assessment: 57M POD#1 s/p open appy and doing well regular diet ambulate pain control abx d/w Dr. Aminta Pineda PGY2
[2017-03-17] MEDS: Oxycodone/Acetaminophen 5/325 mg Tab PO PRN ×3 (09:51→22:50)
[2017-03-17] MEDS: Divalproex 500 mg DR Tab PO SCH ×2 (09:52→22:33)
[2017-03-17] MEDS: Pantoprazole 40 mg EC Tab PO SCH (17:16)
[2017-03-17 18:43] VITALS: O2SAT 95
[2017-03-18] MEDS: metroNIDAZOLE IV 500 mg/100 ml 500 MG/100 ML BAG IVPB SCH ×2 (00:04→08:30)
[2017-03-18] MEDS: Ciprofloxacin 400mg/200ml D5W 400 MG/200 ML BAG IVPB SCH (05:25)
[2017-03-18] MEDS: Oxycodone/Acetaminophen 5/325 mg Tab PO PRN ×2 (05:36→11:51)
[2017-03-18 07:51] LABS: BASO % 0.3 % (0.0-2.0); EOS # 0.2 K/uL (0.0-0.7); EOS % 2.5 % (0.0-4.0); HEMOGLOBIN 12.7 g/dL (12.0-18.0); LYMPH # 1.6 K/uL (1.0-4.3); LYMPH % 18.7 % (20.0-40.0); MEAN CELL VOLUME 89.8 fL (80.0-94.0); MEAN CORPUSCULAR HEMOGLOBIN 31.2 pg (27.0-31.0); MEAN CORPUSCULAR HGB CONC 34.8 g/dL (33.0-37.0); MEAN PLATELET VOLUME 7.9 fL (7.2-11.7); MONO # 1.2 K/uL (0.0-0.8); MONO % 13.9 % (0.0-10.0); NEUT # 5.6 K/uL (1.8-7.0); NEUT % 64.6 % (50.0-75.0); RBC 4.08 Mil/uL (4.40-5.90); RED CELL DISTRIBUTION WIDTH 14.3 % (11.5-14.5); WHITE BLOOD COUNT 8.7 K/uL (4.8-10.8)
--- NOTE | 2017-03-18 07:53 | OP ---
PROCEDURE DATE: 03/16/2017 PREOPERATIVE DIAGNOSIS: Appendicitis. POSTOPERATIVE DIAGNOSIS: Appendicitis. PROCEDURE CARRIED OUT: Attempted laparoscopic and then open appendectomy. SURGEON: Jerome Lemos Jr., MD. EXPORT SPECIALIST: Carter Pineda DO ANESTHESIA ADMINISTERED BY: Bhupendra Silva. INDICATIONS: The patient is a 57-year-old man who was admitted to the hospital with neurological problems. I was asked to see on an urgent basis because of abdominal pain. Minimal tenderness in the right upper quadrant and abnormal CAT scan. OPERATIVE FINDINGS: The appendix was chronically inflamed. There were a lot of adhesions around the area, this was probably appendicitis in the past that has mouldered over. The rest of the intraoperative findings were unremarkable except for adhesions in the right lower quadrant, and a contorted and very developed appendix. DESCRIPTION OF PROCEDURE: Patient was given general anesthesia, intravenous antibiotics; Venodyne boots were applied. Amrit trocars, two 12's and one 5 were inserted via the umbilicus location in the left lower quadrant. The appendix was visualized and was grasped. Initially, we could identify and then dissect it. However, I was concerned I was not seeing the base of the appendix. Prior to further dissection we were unable to completely visualize the base of the appendix. Because of this, we then converted to an open technique and we were able to securely identify the base of the appendix and take it out. This was a densely inflamed area with numerous adhesions to the cecum and to the surrounding tissues indicating probably chronic infection in the past. Nonetheless, the appendix was grasped to the mesoappendix, divided with use of a ligature device, and the base stapling device. We then removed it. We then closed the abdomen with running sutures of Novafil and PDS. We closed the umbilical incision, which was a large chronically incarcerated hernia, but this is not a final repair as we could not use mesh because the appendix being removed at the same time and because there is also a very large diastasis recti. So, we closed the fascial defect that we have recreated as well as the fascial defect of the umbilical hernia. We then closed the skin with shahzad. Procedure was terminated. Blood loss of the procedure was less than 25 mL upon estimation. BASIC FINDINGS: Chronically inflamed appendix with multiple lesions in the area from previous inflammation. Jerome Lemos Jr., MD cc: Dr. Marquez.
[2017-03-18] MEDS: (Novolog) Insulin Aspart, Recombinant 100 u/ml 10 ml vial SC SCH ×2 (08:30→11:58)
[2017-03-18 08:44] LABS: ALBUMIN 3.7 g/dL (3.5-5.0); ALT/SGPT 19 U/L (21-72); AST/SGOT 24 U/L (17-59); BLOOD UREA NITROGEN 12 mg/dL (9-20); CALCIUM 9.3 mg/dl (8.6-10.4); GFR AFRICAN-AMERICAN > 60; GFR NON-AFRICAN AMERICAN > 60; MAGNESIUM 1.6 mg/dL (1.6-2.3)
--- NOTE | 2017-03-18 08:51 | HP ---
HISTORY OF PRESENT ILLNESS: Patient is a 57-year-old male admitted to hospital with sudden onset of numbness and weakness of left side of body and slight slurred speech lasting for 2 hours according to the patient. Patient denies using any drugs and denies drinking. Patient has history of hypertension, diabetes, history of CVA in the past. PHYSICAL EXAMINATION: GENERAL: Patient is awake, alert, oriented. VITAL SIGNS: Temperature 98, pulse is 90, blood pressure 130/80. HEENT: Within normal limits. NECK: Supple. CHEST: Symmetrical. HEART: Regular. ABDOMEN: Soft. EXTREMITIES: No edema. NEUROLOGIC: Normal. IMPRESSION AND PLAN: Patient suffered from transient ischemic attack/cerebrovascular accident. Patient bed rest, neuro check. We will get MRI of the brain, Neurology consult. Kemi Marquez MD
[2017-03-18] MEDS: Divalproex 500 mg DR Tab PO SCH (09:58)
[2017-03-18 10:01] VITALS: BP 122/80
--- NOTE | 2017-03-18 10:53 | CP.PCM.PN ---
Subjective - Date & Time of Evaluation Date of Evaluation: 03/18/17 Time of Evaluation: 10:50 - Subjective Subjective: General Surgery Progress Note for Dr. Lemos This 57M Was seen and examined this AM at bedside. He reports flatus, BM he is ambulating urinating tolerating diet, pain well controlled with percocet. Objective - Vital Signs/Intake and Output Vital Signs (last 24 hours): Temp Pulse Resp BP Pulse Ox 98.1 F 96 H 20 122/80 95 03/17/17 23:40 03/18/17 00:00 03/17/17 23:40 03/18/17 09:59 03/17/17 23:40 Intake and Output: 03/18/17 03/18/17 06:59 18:59 Intake Total 800 Balance 800 - Medications Medications: Current Medications Acetaminophen (Tylenol 325mg Tab) 650 mg PO Q4 PRN PRN Reason: Pain, Mild (1-3) Carvedilol (Coreg) 25 mg PO BID [facility] Last Admin: 03/18/17 09:59 Dose: 25 mg Clonazepam (Klonopin) 0.5 mg PO QID PRN PRN Reason: Anxiety Last Admin: 03/17/17 09:52 Dose: 0.5 mg Dipyridamole/Aspirin (Aggrenox 25-200 Mg) 1 ea PO BID [facility] Last Admin: 03/15/17 17:13 Dose: 1 ea Divalproex Sodium (Depakote Dr) 1,500 mg PO 1000 [facility] Last Admin: 03/18/17 09:58 Dose: 1,500 mg Divalproex Sodium (Depakote Dr) 1,500 mg PO 2200 [facility] Last Admin: 03/17/17 22:33 Dose: 1,500 mg Ciprofloxacin (Cipro 400mg/200ml Dsw) 400 mg in 200 mls @ 133 mls/hr IVPB Q12H [facility] Last Admin: 03/18/17 05:25 Dose: 133 mls/hr Metronidazole (Flagyl) 500 mg in 100 mls @ 100 mls/hr IVPB Q8H [facility] Last Admin: 03/18/17 08:30 Dose: 100 mls/hr Insulin Aspart (Novolog) 0 unit SC ACHS [facility] PRN Reason: Protocol Last Admin: 03/18/17 08:30 Dose: Not Given Losartan Potassium (Cozaar) 100 mg PO DAILY [facility] Last Admin: 03/18/17 09:59 Dose: 100 mg Oxycodone/Acetaminophen (Percocet 5/325 Mg Tab) 1 tab PO Q4H PRN PRN Reason: Pain, moderate (4-7) Stop: 03/20/17 08:59 Last Admin: 03/18/17 05:36 Dose: 1 tab Pantoprazole Sodium (Protonix Ec Tab) 40 mg PO Q24H [facility] Last Admin: 03/17/17 17:16 Dose: 40 mg Rosuvastatin Calcium (Crestor) 20 mg PO HS [facility] Last Admin: 03/17/17 22:33 Dose: 20 mg - Labs Labs: 03/18/17 07:30 03/18/17 07:30 PT 11.5 SECONDS (9.7-12.2) 03/14/17 16:51 INR 1.0 03/14/17 16:51 APTT 34 SECONDS (21-34) 03/14/17 16:51 - Constitutional Appears: Non-toxic, No Acute Distress - Head Exam Head Exam: ATRAUMATIC, NORMOCEPHALIC - Eye Exam Eye Exam: EOMI, Normal appearance - ENT Exam ENT Exam: Mucous Membranes Moist - Respiratory Exam Respiratory Exam: NORMAL BREATHING PATTERN - Cardiovascular Exam Cardiovascular Exam: +S1, +S2 - GI/Abdominal Exam GI & Abdominal Exam: Soft. absent: Guarding, Rigid, Tenderness - Neurological Exam Neurological Exam: Alert, Awake - Psychiatric Exam Psychiatric exam: Normal Affect, Normal Mood - Skin Skin Exam: Dry, Intact Assessment and Plan - Assessment and Plan (Free Text) Assessment: This 57M POD#2 s/p Lap converted to open Appy and doing well Patient is clear for discharge at the discretion of the primary care doctor. Followup with Dr. Lemos in 10-14 days for staple removal and post op check D/W Dr. Aminta Pineda PGY2
--- NOTE | 2017-03-18 11:14 | CP.PCM.PN ---
Subjective - Date & Time of Evaluation Date of Evaluation: 03/18/17 Time of Evaluation: 07:00 - Subjective Subjective: PGY [address] Marquez: Patient was see and examined at bedside this morning. He was ambulating well around the hospital floors. He was awake alert and oriented and denied any pain. He admits to passing gas but not BM. He is tolerating his diet without N/ V. Denied calf tenderness, chest pain, palpitations, SOB, numbness or tingling. Patient has been using the incentive spirometer. No new complaints today. Objective - Vital Signs/Intake and Output Vital Signs (last 24 hours): Temp Pulse Resp BP Pulse Ox 98.1 F 96 H 20 122/80 95 03/17/17 23:40 03/18/17 00:00 03/17/17 23:40 03/18/17 09:59 03/17/17 23:40 Intake and Output: 03/18/17 03/18/17 06:59 18:59 Intake Total 800 Balance 800 - Medications Medications: Current Medications Acetaminophen (Tylenol 325mg Tab) 650 mg PO Q4 PRN PRN Reason: Pain, Mild (1-3) Carvedilol (Coreg) 25 mg PO BID [facility] Last Admin: 03/18/17 09:59 Dose: 25 mg Clonazepam (Klonopin) 0.5 mg PO QID PRN PRN Reason: Anxiety Last Admin: 03/17/17 09:52 Dose: 0.5 mg Dipyridamole/Aspirin (Aggrenox 25-200 Mg) 1 ea PO BID [facility] Last Admin: 03/15/17 17:13 Dose: 1 ea Divalproex Sodium (Depakote Dr) 1,500 mg PO 1000 [facility] Last Admin: 03/18/17 09:58 Dose: 1,500 mg Divalproex Sodium (Depakote Dr) 1,500 mg PO 2200 [facility] Last Admin: 03/17/17 22:33 Dose: 1,500 mg Ciprofloxacin (Cipro 400mg/200ml Dsw) 400 mg in 200 mls @ 133 mls/hr IVPB Q12H [facility] Last Admin: 03/18/17 05:25 Dose: 133 mls/hr Metronidazole (Flagyl) 500 mg in 100 mls @ 100 mls/hr IVPB Q8H [facility] Last Admin: 03/18/17 08:30 Dose: 100 mls/hr Insulin Aspart (Novolog) 0 unit SC ACHS [facility] PRN Reason: Protocol Last Admin: 03/18/17 08:30 Dose: Not Given Losartan Potassium (Cozaar) 100 mg PO DAILY [facility] Last Admin: 03/18/17 09:59 Dose: 100 mg Oxycodone/Acetaminophen (Percocet 5/325 Mg Tab) 1 tab PO Q4H PRN PRN Reason: Pain, moderate (4-7) Stop: 03/20/17 08:59 Last Admin: 03/18/17 05:36 Dose: 1 tab Pantoprazole Sodium (Protonix Ec Tab) 40 mg PO Q24H [facility] Last Admin: 03/17/17 17:16 Dose: 40 mg Rosuvastatin Calcium (Crestor) 20 mg PO HS [facility] Last Admin: 03/17/17 22:33 Dose: 20 mg - Labs Labs: 03/18/17 07:30 03/18/17 07:30 PT 11.5 SECONDS (9.7-12.2) 03/14/17 16:51 INR 1.0 03/14/17 16:51 APTT 34 SECONDS (21-34) 03/14/17 16:51 - Constitutional Appears: Non-toxic, No Acute Distress - Head Exam Head Exam: NORMAL INSPECTION - Eye Exam Eye Exam: EOMI - ENT Exam ENT Exam: Mucous Membranes Moist - Respiratory Exam Respiratory Exam: Clear to Ausculation Bilateral, NORMAL BREATHING PATTERN. absent: Accessory Muscle Use, Decreased Breath Sounds, Wheezes, Respiratory Distress - Cardiovascular Exam Cardiovascular Exam: REGULAR RHYTHM, +S1, +S2 - GI/Abdominal Exam GI & Abdominal Exam: Distended, Soft, Hypoactive Bowel Sounds. absent: Firm, Guarding, Tenderness Additional comments: obese, surgical incision intact with shahzad, clean and dry. no erythema, non tender - Extremities Exam Extremities Exam: Normal Inspection. absent: Calf Tenderness - Back Exam Back Exam: NORMAL INSPECTION - Neurological Exam Neurological Exam: Alert, Awake, CN II-XII Intact, Normal Gait, Oriented x3 Neuro motor strength exam: Left Upper Extremity: 5, Right Upper Extremity: 5, Left Lower Extremity: 5, Right Lower Extremity: 5 - Psychiatric Exam Psychiatric exam: Normal Affect, Normal Mood - Skin Skin Exam: Dry, Intact, Normal Color, Warm Assessment and Plan - Assessment and Plan (Free Text) Assessment: Appendicitis S/P open appenedctomy POD #[address] Lemos Ambulating well TOlerating diet + flatus, no BM using incentive spriometer pain controlled with percocet Patient to follow up with Dr. Lemos outpatient Cipro 400mg IV Q12H (start 03/15/17) Flagyl 500mg IV Q12H (start 03/15/17) WBC count normalized, afebrile Pre-op tests: CXR (03/14/17) NAD Coags WNL EKG (03/14/17): NSR, 1st degree AV block. TIA Hx of CVA with residual left sided weakness EKG (03/14/17): NSR, 1st degree AV block. CTA Head/neck (03/14/17): There is significant stenosis of the proximal margin left vertebral artery just distal to its entry into the dura at approximately the level of the foramen magnum. The remaining intracranial circulation is grossly unremarkable without evidence of occlusion significant stenosis or large aneurysm/vascular malformation. Minor soft plaque changes seen at the left carotid bifurcation with no significant stenosis at this level. - MRI ordered but unable to be completed due to pt habitus CT Head (03/14/17): No acute intracranial hemorrhage. Minor chronic periventricular white matter ischemic changes - follow up CT head (03/15/17): Normal CT head. No intracranial mass, hemorrhage or infarct. Troponin negative x 1 Neurology: Dr. Phillips, help appreciated CT head negative for acute bleed ASA 81mg PO daily Crestor 20mg PO HS Hypertension Well controlled Cozaar 100mg PO Daily Coreg 25mg PO BID Weakness PT/OT: f/u reccs Diabetes Mellitus, Type Two ISS A1C: 8.4 Accuchecks Crestor 20mg PO HS Cozaar 100mg PO Daily Lipid panel: Cholesterol 225, LDL 140, HDL 50, Triglycerides 186 Anxiety Klonopin 0.5mg QID PO PRN BPH Flomax 0.4mg PO Daily Hx Substance Abuse UDS negative Prophylaxis Lovenox 40mg SC Daily - held for surgry patient ambulating well Protonix 40mg PO Daily SCDs All medical management per DR. MARQUEZ Patient is stable for discharge home. He is to follow up with Dr. Marquez within 1-2 weeks for post hospital care. He is to resume all of his current medications. No changes were made during his hospital stay. As per Dr. Lemos : Please avoid heavy lifting for 4-6 weeks or until cleared by Dr. Lemos. Please call Dr. Lemos's office for an appointment in 1-2 weeks after discharge. Do not remove the bandages until you are seen by Dr. Lemos. You may shower if you cover the bandages with plastic and keep them from getting wet. Do not get into a hot tub or sit in hot water. Dr. Lemos will give you further post operative instructions at your follow up appointment. You may resume a regular diet. If you have fevers or chills or if you feel a popping sensation at your surgical sites, please return to hospital or call Dr. Lemos 's office. All instructions explained to the patient and he agrees.
[2017-03-18 11:43] VITALS: PULSE 92; TEMP 97.5
--- NOTE | 2017-03-20 06:41 | CARD ---
APPROVED REPORT EKG Measurement Heart [id number] <Conclusion> Sinus rhythm with 1st degree AV block Otherwise normal ECG
== END 2017-03-18 13:43 | disposition home or self-care (01) | DRG 167 ==
LOC: C.ER 16:17 → C.9E 17:17 → C.6T 17:38
PROVIDERS: ADMIT Internal Medicine Pulmonary Disease; ATTEND Internal Medicine Pulmonary Disease
PROC: 0DJD4ZZ Inspection of Lower Intestinal Tract, Percutaneous Endoscopic Approach (ICD-10-PCS; principal; 2017-03-16 08:00)
PROC: 0DTJ0ZZ Resection of Appendix, Open Approach (ICD-10-PCS; 2017-03-16 08:00)
DX: K35.80 Unspecified acute appendicitis (principal); G45.9 Transient cerebral ischemic attack, unspecified; I69.354 Hemiplegia and hemiparesis following cerebral infarction affecting left non-dominant side; F41.9 Anxiety disorder, unspecified; I10 Essential (primary) hypertension; N40.0 Benign prostatic hyperplasia without lower urinary tract symptoms; E11.9 Type 2 diabetes mellitus without complications; I44.0 Atrioventricular block, first degree; Z85.46 Personal history of malignant neoplasm of prostate

== ENCOUNTER 2017-04-09 07:16 | Day surgery (SDC) | payer OTHER ==
[2017-04-09 07:48] VITALS: BMI 35.3
[2017-04-09] MEDS ORDERED: Propofol 10 mg/ml Inj (20 ML) ONE ×2 (10:00→10:17)
--- NOTE | 2017-04-09 10:00 | CP.SDSHP ---
Same Day Surgery H & P - History Proposed Procedure: colonscopy Pre-Op Diagnosis: SEE NOTES - Previous Medical/Surgical History Cardiac: Hypertension Endocrine/Metabolic: Diabetes, Other Misc: Other Pain: 2.Mild Pain - Allergies Allergies: Allergies Penicillins Allergy (Verified 04/09/17 08:36) SHORTNESS OF BREATH - Physical Exam General Appearance: N Vital Signs: Vital Signs 04/09/17 08:00 Temperature 97.3 F L Pulse Rate 80 Respiratory 20 Rate Blood Pressure 127/78 O2 Sat by Pulse 98 Oximetry Mental Status: Alert & Oriented x3 Neuro: WNL Heart: Other Lungs: Other GI: WNL - {Optional Preform as Required} Breast: WNL Abdomen: Other Rectal: WNL Integument: WNL : Other Ortho: Other ENT: WNL - Impression Pt. Evaluated Today:Candidate for Anesthesia & Procedure: Yes - Date & Time Time: 09:59 Short Stay Discharge - Short Stay Discharge Admitting Diagnosis/Reason for Visit: ENCOUNTER FOR SCREENING FOR MALIGNANT NEOPLASM OF Disposition: HOME/ ROUTINE
[2017-04-09] MEDS ORDERED: Belladonna-Phenobarbital PO STA (10:01)
[2017-04-09] MEDS ORDERED: Lactated Ringer's 1,000 ML IV SCH (10:15)
[2017-04-09] MEDS ORDERED: Lidocaine Hydrochloride 5 ML INJ ONE (10:18)
[2017-04-09 11:02] LABS: BASO # 0.1 K/uL (0.0-0.2); BASO % 0.8 % (0.0-2.0); EOS # 0.3 K/uL (0.0-0.7); EOS % 4.7 % (0.0-4.0); HEMOGLOBIN 13.5 g/dL (12.0-18.0); LYMPH # 1.4 K/uL (1.0-4.3); LYMPH % 20.9 % (20.0-40.0); MEAN CORPUSCULAR HEMOGLOBIN 30.7 pg (27.0-31.0); MEAN CORPUSCULAR HGB CONC 34.5 g/dL (33.0-37.0); MEAN PLATELET VOLUME 7.7 fL (7.2-11.7); MONO # 0.6 K/uL (0.0-0.8); MONO % 9.8 % (0.0-10.0); NEUT # 4.1 K/uL (1.8-7.0); NEUT % 63.8 % (50.0-75.0); RBC 4.39 Mil/uL (4.40-5.90); RED CELL DISTRIBUTION WIDTH 13.9 % (11.5-14.5); WHITE BLOOD COUNT 6.5 K/uL (4.8-10.8)
[2017-04-09 11:18] LABS: PROTHROMBIN TIME 11.7 SECONDS (9.7-12.2)
[2017-04-09 11:26] LABS: ALB/GLOB RATIO 0.9 (1.0-2.1); ALBUMIN 3.8 g/dL (3.5-5.0); ALT/SGPT 30 U/L (21-72); AST/SGOT 25 U/L (17-59); BLOOD UREA NITROGEN 7 mg/dL (9-20); CALCIUM 9.1 mg/dl (8.6-10.4); GFR AFRICAN-AMERICAN > 60; GFR NON-AFRICAN AMERICAN > 60; HDL CHOLESTEROL 47 mg/dL (30-70)
[2017-04-09 11:31] LABS: LDL CHOLESTEROL 133 mg/dL (0-129)
[2017-04-09 11:35] LABS: CK-MB 0.39 ng/mL (0.0-3.38)
--- NOTE | 2017-04-09 11:46 | CT ---
PROCEDURE: CT HEAD WITHOUT CONTRAST. 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 Radiation dose: Total exam DLP = 953.57 mGy-cm. This CT exam was performed using one or more of the following dose reduction techniques: Automated exposure control, adjustment of the mA and/or kV according to patient size, and/or use of iterative reconstruction technique. FINDINGS: HEMORRHAGE: No intracranial hemorrhage. BRAIN: Diffuse atrophy with prominence of the ventricles and sulci noted. No mass effect or edema. Scattered white matter hypodensities, which are nonspecific, but often seen with chronic microvascular ischemic disease. Subtle patchy opacity in the right parietal lobe possibly encephalomalacia. VENTRICLES: No hydrocephalus. CALVARIUM: Unremarkable. PARANASAL SINUSES: Unremarkable as visualized. No significant inflammatory changes. MASTOID AIR CELLS: Unremarkable as visualized. No inflammatory changes. 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 IMPRESSION: Scattered white matter hypodensities, which are nonspecific, but often seen with chronic microvascular ischemic disease. Subtle patchy opacity in the right parietal lobe possibly encephalomalacia. Please note that MRI with diffusion imaging is more sensitive in the detection of acute ischemic event.
[2017-04-09 12:09] VITALS: TEMP 99.1
[2017-04-09 12:18] VITALS: BP 113/69; PULSE 81; RESP 14; O2SAT 96
--- NOTE | 2017-04-09 12:56 | RAD ---
HISTORY: Chest pain COMPARISON: Chest x-ray performed 03/14/17 TECHNIQUE: Chest, one view. FINDINGS: Examination limited by habitus. LUNGS: Right hilar prominence. No focal consolidation. Please note that chest x-ray has limited sensitivity for the detection of pulmonary masses. PLEURA: No significant pleural effusion identified. No definite pneumothorax . CARDIOVASCULAR: Cardiomegaly. OSSEOUS STRUCTURES: Degenerative changes. VISUALIZED UPPER ABDOMEN: Unremarkable. OTHER FINDINGS: None. IMPRESSION: Right hilar prominence. Cardiomegaly.
--- NOTE | 2017-04-09 12:59 | CP.PCM.PN ---
Subjective - Date & Time of Evaluation Date of Evaluation: 04/09/17 Time of Evaluation: 11:00 - Subjective Subjective: PGY2 Medicine Note - Dr. Marquez Patient is a 57 year old male with PMHx of multiple CVA's and TIA, with residual L sided weakness, who presented to the hospital today for Colonoscopy. After the procedure was completed, a MANAGER TEST was called due to complaints of chest pressure with paresthesia of the L arm. Patient was very disoriented during the exam secondary to the effects of anesthesia. He recovered over the course of 20 minutes, and reported that the chest pain and paresthesias resolved. Patient will be placed on observation. Further ROS could not be obtained due to the effects of anesthesia. Objective - Vital Signs/Intake and Output Vital Signs (last 24 hours): Temp Pulse Resp BP Pulse Ox 99.1 F 81 14 113/69 96 04/09/17 10:20 04/09/17 11:35 04/09/17 11:35 04/09/17 11:35 04/09/17 11:35 Intake and Output: 04/09/17 04/09/17 06:59 18:59 Intake Total 400 Balance 400 - Medications Medications: Current Medications Lactated Ringer's (Lactated Ringer's) 1,000 mls @ 75 mls/hr IV .[id number] [facility] - Labs Labs: 04/09/17 10:55 04/09/17 10:55 PT 11.7 SECONDS (9.7-12.2) 04/09/17 11:05 INR 1.0 04/09/17 11:05 APTT 35 SECONDS (21-34) H 04/09/17 11:05 - Additional Findings Additional findings: - Constitutional Appears: Non-toxic, No Acute Distress - Head Exam Head Exam: ATRAUMATIC, NORMAL INSPECTION - Eye Exam Eye Exam: EOMI, Normal appearance. absent: Scleral icterus Pupil Exam: PERRL - ENT Exam ENT Exam: Mucous Membranes Moist - Neck Exam Neck Exam: Full ROM - Respiratory Exam Respiratory Exam: Clear to Ausculation Bilateral, NORMAL BREATHING PATTERN. absent: Rales, Rhonchi, Wheezes - Cardiovascular Exam Cardiovascular Exam: REGULAR RHYTHM, +S1, +S2 - GI/Abdominal Exam GI & Abdominal Exam: Soft, Normal Bowel Sounds. absent: Tenderness healing surgical incision s/p open Apendectomy large body habitus Negative rovsing / mcburney point, no rebound tenderness - Extremities Exam Extremities Exam: Normal Inspection - Back Exam Back Exam: absent: CVA tenderness (L), CVA tenderness (R) - Neurological Exam Neurological Exam: Alert, Awake, Oriented x3 - Psychiatric Exam Psychiatric exam: Normal Affect, Normal Mood - Skin Skin Exam: Dry, Normal Color, Warm Assessment and Plan - Assessment and Plan (Free Text) Assessment: Chest Pain s/p Anesthesia DAVID negative x1 CXR - cardiomegally. R hilar prominence. see full report CT Head - scattered white matter hypodensities. subtle patchy opacity in R parietal lobe possibly encephalomalacia. see full report. f/u DAVID x2 Lipid panel: Cholesterol 225, LDL 140, HDL 50, Triglycerides 186 Hx TIA Hx of CVA with residual left sided weakness CTA Head/neck (03/14/17): There is significant stenosis of the proximal margin left vertebral artery just distal to its entry into the dura at approximately the level of the foramen magnum. The remaining intracranial circulation is grossly unremarkable without evidence of occlusion significant stenosis or large aneurysm/vascular malformation. Minor soft plaque changes seen at the left carotid bifurcation with no significant stenosis at this level. - MRI unable to be completed due to pt habitus (prior admission) CT Head (03/14/17): No acute intracranial hemorrhage. Minor chronic periventricular white matter ischemic changes - follow up CT head (03/15/17): Normal CT head. No intracranial mass, hemorrhage or infarct. CT head negative for acute bleed -ASA/Dipyridamole 25-200 PO BID -Crestor 20mg PO HS Hypertension Well controlled -Cozaar 100mg PO Daily -Coreg 25mg PO BID Diabetes Mellitus, Type Two -ISS A1C: 8.4 Accuchecks -Crestor 20mg PO HS -Cozaar 100mg PO Daily Lipid panel: Cholesterol 225, LDL 140, HDL 50, Triglycerides 186 Anxiety -Klonopin 0.5mg QID PO PRN BPH -Flomax 0.4mg PO Daily Bipolar Disorder Continue Depakote Dr 1500mg PO BID (10:00 / 22:00) Hx Appendicitis S/P open appenedctomy with Dr. Lemos 03/16/17 Ambulating well Tolerating diet Prophylaxis -Protonix 40mg PO Daily SCDs VTE prophylaxis C/I 2/2 hx of brain bleed. All medical management per Dr. Marquez
[2017-04-09] MEDS ORDERED: Pantoprazole 40 mg EC Tab PO SCH (13:30)
[2017-04-09] MEDS ORDERED: Divalproex 500 mg ER Tab PO SCH (14:00)
[2017-04-09 14:22] LABS: CK-MB 0.39 ng/mL (0.0-3.38)
--- NOTE | 2017-04-09 16:05 | PCM.RRT ---
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 Patient appeared very lethargic. - Neurological Status (Select all that apply): Alert, Responsive, Verbal, Follows Commands, Lethargic - Constitutional Appears: In Acute Distress - Head Head Exam: ATRAUMATIC, NORMOCEPHALIC - Eyes Eye Exam: EOMI, Normal appearance - Respiratory Exam Respiratory Exam: Clear to Ausculation Bilateral, NORMAL BREATHING PATTERN. absent: Accessory Muscle Use, Rales, Rhonchi, Wheezes, Respiratory Distress - Cardiovascular Exam Cardiovascular Exam: Tachycardia, +S1, +S2 - GI/Abdominal Exam GI & Abdominal Exam: Soft. absent: Distended, Firm, Guarding, Rigid, Tenderness - Neurological Exam Neurological Exam: Alert, Altered, Awake Additional exam: very lethargic Plan - Assessment of Findings&Treatment Plan Initial Vital Signs: HR 107 bpm BP 100/69 RR 17 Oxy Sat 98% While in recovery room of [facility], patient experienced chest pain with tachycardia and diaphoresis. Patient was reportedly given Propofol 100mg and Fentanyl 400mcg throughout the colonoscopy procedure. Patient was awake, alert and good mentation but appeared very lethargic. EKG showed patient in NSR @[address] elevations. EKG was compared to prior ekg with no changes. Orders placed: EKG q6h x3 DAVID q6h x3 - neg x1 CBC CMP TSH free T4 Lipid hgb A1c CXR - Right hilar prominence. Cardiomegaly. Head CT w/o - Scattered white matter hypodensities, which are nonspecific, but often seen with chronic microvascular ischemic disease. Subtle patchy opacity in the right parietal lobe possibly encephalomalacia. Please note that MRI with diffusion imaging is more sensitive in the detection of acute ischemic event. Patient returned to baseline within a few minutes and stated that his chest pain had completely resolved. Repeat Vitals: HR 86 bpm BP 129/75 RR 20 Oxy Sat 98% Patient admitted to Telemetry for overnight observation to Dr. Marquez's service. Case discussed with Dr. Louie Tubbs Roberto PGY1
[2017-04-09] MEDS ORDERED: (Novolog) Insulin Aspart, Recombinant 100 u/ml 10 ml vial SC SCH (16:30)
[2017-04-09] MEDS ORDERED: Aspirin-Dipyridamole 200-25 mg ER Cap PO SCH (18:00)
[2017-04-09] MEDS ORDERED: Divalproex 500 mg DR Tab PO SCH (22:00)
[2017-04-10] MEDS ORDERED: Divalproex 500 mg DR Tab PO SCH (10:00)
--- NOTE | 2017-04-10 11:54 | CARD ---
APPROVED REPORT EKG Measurement Heart [id number] CT 200P64 [id number] <Conclusion> Normal sinus rhythm Normal ECG
== END 2017-04-09 11:50 | disposition still patient (30) ==
LOC: C.ENDO 07:16 → C.9S 10:47 → UNDOADMOB 10:47 → C.ENDO 11:50 → UNDODISOB 13:54
PROVIDERS: ATTEND Specialist
DX: Z12.11 Encounter for screening for malignant neoplasm of colon (principal); E11.9 Type 2 diabetes mellitus without complications; I10 Essential (primary) hypertension; F31.9 Bipolar disorder, unspecified; I97.89 Other postprocedural complications and disorders of the circulatory system, not elsewhere classified; R00.0 Tachycardia, unspecified; R07.9 Chest pain, unspecified; I69.354 Hemiplegia and hemiparesis following cerebral infarction affecting left non-dominant side; N40.0 Benign prostatic hyperplasia without lower urinary tract symptoms; F41.9 Anxiety disorder, unspecified; I65.02 Occlusion and stenosis of left vertebral artery; K64.8 Other hemorrhoids; K57.30 Diverticulosis of large intestine without perforation or abscess without bleeding
CPT/HCPCS: 36415; 45380; 70450; 71045; 80053; 80061; 82948; 83036; 84439; 84443; 84484; 85025; 85610; 85730; 88305; G0378; J2704; J3010; J7120

== ENCOUNTER 2017-04-09 11:54 | Emergency (ER) | payer OTHER ==
[2017-04-09 11:55] VITALS: BMI 35.3
--- NOTE | 2017-04-09 13:28 | C.PDOC ---
History Of Present Illness 57 y/o male brought to ED from same day surgery for evaluation on palpitations, chest pain and feeling lightheaded after having colonoscopy procedures. As per records patient finished procedure and took 20 minutes to come out of anesthesia then started complaining. In ED patient is asymptomatic and is requesting to go home. He states he just felt uneasy after procedure, he was hungry and felt anxious. Time Seen by Provider: 04/09/17 12:30 Chief Complaint (Nursing): Medical Clearance History Per: Patient History/Exam Limitations: no limitations Onset/Duration Of Symptoms: Hrs Past Medical History Reviewed: Historical Data, Nursing Documentation, Vital Signs Vital Signs: Last Vital Signs Temp 97.5 F L 04/09/17 13:54 Pulse 98 H 04/09/17 13:54 Resp 18 04/09/17 13:54 BP 143/75 04/09/17 13:54 Pulse Ox 95 04/09/17 13:54 - Medical History PMH: Bipolar Disorder, HTN, TIA Surgical History: Appendectomy - [facility] Procedures INSPECTION OF LOWER INTESTINAL TRACT, PERC ENDO APPROACH (03/14/17) RESECTION OF APPENDIX, OPEN APPROACH (03/14/17) Family History: States: No Known Family Hx - Social History Hx Alcohol Use: Yes Hx Substance Use: No (former) - Immunization History Hx Tetanus Toxoid Vaccination: Yes Hx Influenza Vaccination: Yes Hx Pneumococcal Vaccination: No Review Of Systems Cardiovascular: Positive for: Chest Pain, Palpitations, Light Headedness Respiratory: Negative for: Cough, Shortness of Breath Gastrointestinal: Negative for: Nausea, Vomiting Skin: Negative for: Rash Physical Exam - Physical Exam Appears: Non-toxic, Other (obese, anxious appearing) Skin: Warm, Dry, No Rash Head: Atraumatic, Normacephalic Eye(s): bilateral: Normal Inspection, EOMI Nose: Normal Oral Mucosa: Moist Neck: Normal ROM, Supple Cardiovascular: Rhythm Regular, Other (tachycardic) Respiratory: Normal Breath Sounds, No Rales, No Rhonchi, No Wheezing Gastrointestinal/Abdominal: Soft, No Tenderness, No Guarding, No Rebound Extremity: Normal ROM, No Tenderness, No Deformity, No Swelling Neurological/Psych: Oriented x3, Normal Speech Gait: Steady ED Course And Treatment ECG: Interpreted By Me, Viewed By Me ECG Rhythm: Sinus Rhythm Rate From EC (bpm) O2 Sat by Pulse Oximetry: 97 (RA) Against Medical Advice - AMA Patient Left Against Medical Advice: The patient declines admission to the hospital and wishes to leave the Emergency Department. This action is against my medical advice. This decision was made with informed refusal. The patient was told that admission to the hospital is necessary. Explanation of the reasons why were discussed. The risks of leaving were explained to the patient and include, but are not limited to, worsening of known or currently unknown conditions, permanent disability and from undiagnosed or untreated conditions. The patient has the capacity to make this informed decision and understands my explanation of the current medical problem and risks of leaving. The patient voluntarily accepts these risks and signed an AMA form documenting our conversation. The patient was given the opportunity to ask questions and reconsider. The patient was encouraged to return to the Emergency Department at any time for further care. Medical Decision Making Medical Decision Making: EKG obtained and reviewed Patient has no complaints in ED and does not want any additional tests or to stay in ED. Patient is eating food in ED, has ambulated to restroom without any difficulty. 1:24pm: Spoke to Dr. Marquez who advised patient be put on obs Patient does not want to stay and signed out AMA The patient declines admission to the hospital and wishes to leave the Emergency Department. This action is against my medical advice to the patient and the decision was made with informed refusal. The patient was told that admission is necessary and a full explanation of the rationale was given. The risks of leaving were explained to the patient and include, but are not limited to, worsening of known or currently unknown conditions, permanent disability and from undiagnosed or untreated conditions. The patient has the capacity to make this informed decision and understands the clinical situation and my explanation of the risks of leaving. The patient voluntarily accepts these risks and a signed AMA form documenting our conversation was obtained. The patient was given the opportunity to ask questions and reconsider. The patient was encouraged to return to the Emergency Department at any time for further care. Disposition - Disposition Disposition: AGAINST MEDICAL ADVICE Disposition Time: 13:40 Condition: STABLE Instructions: Leaving Against Medical Advice - POA Present On Arrival: None - Clinical Impression Clinical Impression: Left against medical advice, Adverse effect of anesthesia - PA / LEARNING OPERATIONS SPECIALIST / Resident Statement MD/DO has reviewed & agrees with the documentation as recorded. - Scribe Statement The provider has reviewed the documentation as recorded by the Tom Rodriguez All medical record entries made by the Tom were at my direction and personally dictated by me. I have reviewed the chart and agree that the record accurately reflects my personal performance of the history, physical exam, medical decision making, and the department course for this patient. I have also personally directed, reviewed, and agree with the discharge instructions and disposition.
[2017-04-09 13:58] VITALS: BP 143/75; PULSE 98; RESP 18; TEMP 97.5
[2017-04-09 15:44] VITALS: O2SAT 97
--- NOTE | 2017-04-10 11:49 | CARD ---
APPROVED REPORT EKG Measurement Heart [id number] OR 212P54 [id number] <Conclusion> Sinus rhythm with 1st degree AV block Otherwise normal ECG
== END 2017-04-09 13:54 | disposition left against medical advice (07) ==
LOC: C.ER 11:54
DX: T88.59XA Other complications of anesthesia, initial encounter (principal); Y84.8 Other medical procedures as the cause of abnormal reaction of the patient, or of later complication, without mention of misadventure at the time of the procedure; Y92.238 Other place in hospital as the place of occurrence of the external cause

== ENCOUNTER 2017-04-27 20:16 | Observation (INO) | payer MEDICAID, OTHER ==
[2017-04-27 20:17] VITALS: BMI 35.3
--- NOTE | 2017-04-27 20:30 | C.PDOC ---
History Of Present Illness 57 y/o male presents to ED for evaluation of chest pain since last night. Patient had syncopal episode lasting about 5 minutes today at home and was subsequently confused as per . Pt denies any chest pain at present time, or any other complaints. Time Seen by Provider: 04/27/17 20:22 Chief Complaint (Nursing): Chest Pain History Per: Patient History/Exam Limitations: no limitations Onset/Duration Of Symptoms: Hrs Current Symptoms Are (Timing): Gone Severity: None Pain Scale Rating Of: 0 Quality: "Pain" Associated Symptoms: Syncope. denies: Nausea, Dyspnea, Diaphoresis Modifying Factors: None Exacerbating Factors: None Alleviating Factors: None Recent travel outside of the [place]: No Additional History Per: Patient Past Medical History Reviewed: Historical Data, Nursing Documentation, Vital Signs Vital Signs: Last Vital Signs Temp 98 F 04/27/17 20:24 Pulse 88 04/27/17 20:24 Resp 20 04/27/17 20:24 BP 137/85 04/27/17 20:28 Pulse Ox 97 04/27/17 20:24 - Medical History PMH: Bipolar Disorder, HTN, TIA Denies: Chronic Kidney Disease Surgical History: Appendectomy - [facility] Procedures INSPECTION OF LOWER INTESTINAL TRACT, PERC ENDO APPROACH (03/14/17) RESECTION OF APPENDIX, OPEN APPROACH (03/14/17) Family History: States: Unknown Family Hx - Social History Hx Alcohol Use: Yes Hx Substance Use: No (former) - Immunization History Hx Tetanus Toxoid Vaccination: Yes Hx Influenza Vaccination: Yes Hx Pneumococcal Vaccination: No Review Of Systems Except As Marked, All Systems Reviewed And Found Negative. Constitutional: Negative for: Fever, Chills Cardiovascular: Negative for: Chest Pain, Palpitations Respiratory: Negative for: Cough, Shortness of Breath Gastrointestinal: Negative for: Nausea, Vomiting, Abdominal Pain Neurological: Positive for: Confusion, Other (syncope). Negative for: Headache , Dizziness Physical Exam - Physical Exam Appears: Non-toxic, No Acute Distress Skin: Normal Color, Warm, Dry Head: Atraumatic, Normacephalic Eye(s): bilateral: Normal Inspection Oral Mucosa: Moist Neck: Normal ROM, Supple Chest: Symmetrical Cardiovascular: Rhythm Regular, No Murmur Respiratory: Normal Breath Sounds, No Rales, No Rhonchi, No Wheezing Gastrointestinal/Abdominal: Soft, No Tenderness Extremity: Normal ROM, No Pedal Edema Neurological/Psych: Oriented x3, Normal Speech, Normal Cognition, Other (mild left side weakness from prior CVA) ED Course And Treatment - Laboratory Results Result Diagrams: 04/27/17 20:44 04/27/17 20:44 ECG: Interpreted By Me, Viewed By Me ECG Rhythm: Sinus Rhythm, 1st Degree HB ECG Interpretation: No Acute Changes Interpretation Of ECG: NSR with 1st dgree AV block, no acute changes Rate From EC NIHSS Stroke Scale - Date/Time Evaluation Performed Date Performed: 04/27/17 (old CVA left sided weakness-residual) Time Performed: 20:20 When Was NIHSS Performed: Baseline - How Severe is the Stoke Level of Consciousness: 0=Alert LOC to Questions: 0=Both comments correct LOC to commands: 0=Obeys both correctly Visual: 0=No visual loss Facial: 0=Normal Motor Arm - Left: 1=Drift noted before 10 sec Motor Arm - Right: 0=No drift Motor Leg - Left: 1=Drift before 5 sec Motor Leg - Right: 0=No drift Limb Ataxia: 0=Absent Sensory: 0=Normal Best Language: 0=No aphasia Dysarthia: 0=Normal articulation Extinction & Inattention (Neglect): 0=Normal, no object Severity Of Stroke: 1-4= Minor Stroke Disposition Discussed With : Kemi Marquez Doctor Will See Patient In The: Hospital Counseled Patient/Family Regarding: Diagnosis - Disposition Disposition: HOSPITALIZED Disposition Time: 22:17 Condition: STABLE Forms: [facility] (Ukrainian) - POA Present On Arrival: None - Clinical Impression Clinical Impression: Chest pain, Syncope, Diabetes mellitus, 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 I have reviewed the chart and agree that the record accurately reflects my personal performance of the history, physical exam, medical decision making, and the department course for this patient. I have also personally directed, reviewed, and agree with the discharge instructions and disposition.
[2017-04-27] MEDS ORDERED: Nitroglycerin 2% Ointment Foilpak UD TOP STA (20:33)
[2017-04-27 20:52] LABS: BASO % 0.4 % (0.0-2.0); EOS # 0.4 K/uL (0.0-0.7); EOS % 4.9 % (0.0-4.0); HEMOGLOBIN 13.9 g/dL (12.0-18.0); LYMPH # 2.1 K/uL (1.0-4.3); LYMPH % 25.5 % (20.0-40.0); MEAN CELL VOLUME 88.5 fL (80.0-94.0); MEAN CORPUSCULAR HEMOGLOBIN 30.8 pg (27.0-31.0); MEAN CORPUSCULAR HGB CONC 34.9 g/dL (33.0-37.0); MEAN PLATELET VOLUME 7.9 fL (7.2-11.7); MONO # 0.9 K/uL (0.0-0.8); MONO % 11.1 % (0.0-10.0); NEUT # 4.8 K/uL (1.8-7.0); NEUT % 58.1 % (50.0-75.0); RBC 4.51 Mil/uL (4.40-5.90); RED CELL DISTRIBUTION WIDTH 13.7 % (11.5-14.5); WHITE BLOOD COUNT 8.2 K/uL (4.8-10.8)
[2017-04-27 20:55] LABS: PROTHROMBIN TIME 11.1 SECONDS (9.7-12.2)
[2017-04-27 21:08] LABS: ALT/SGPT 23 U/L (21-72); AST/SGOT 29 U/L (17-59); BLOOD UREA NITROGEN 15 mg/dL (9-20); GFR AFRICAN-AMERICAN > 60; GFR NON-AFRICAN AMERICAN > 60
--- NOTE | 2017-04-27 21:09 | RAD ---
HISTORY: chest pain COMPARISON: Chest x-ray performed 04/09/17 TECHNIQUE: Chest, one view. FINDINGS: LUNGS: Right hilar prominence. Mild pulmonary venous congestion. Please note that chest x-ray has limited sensitivity for the detection of pulmonary masses. PLEURA: No significant pleural effusion identified. No definite pneumothorax . CARDIOVASCULAR: Cardiomegaly. Ectatic aorta. OSSEOUS STRUCTURES: Degenerative changes of the spine. VISUALIZED UPPER ABDOMEN: Unremarkable. OTHER FINDINGS: None. IMPRESSION: Cardiomegaly. Ectatic aorta. Right hilar prominence. Mild pulmonary venous congestion.
--- NOTE | 2017-04-27 22:01 | CT ---
EXAM: CT Head Without Intravenous Contrast CLINICAL HISTORY: 57 years old, male; Signs and symptoms; Syncope and collapse; Additional info: Syncopal episode/ old cva-left residual TECHNIQUE: Axial computed tomography images of the head/brain without intravenous contrast. All CT scans at this facility use one or more dose reduction techniques, viz.: automated exposure control; ma/kV adjustment per patient size (including targeted exams where dose is matched to indication; i.e. head); or iterative reconstruction technique. Coronal and sagittal reformatted images were created and reviewed. COMPARISON: CT - HEAD W/O CONTRAST 2017-04-09 11:19 FINDINGS: Brain: Patchy areas of white matter hypoattenuation most consistent with chronic ischemic small vessel changes. Evidence of small focus of encephalomalacia in the right parietal lobe. No hemorrhage. No edema. Ventricles: No hydrocephalus. Bones: Skull is intact. Nose is deviated to the left. Nasal septum is significantly deviated with apex on the right. Sinuses: Trace paranasal sinus disease. No acute sinusitis. Mastoid air cells: No mastoid effusion. IMPRESSION: No CT evidence of acute intracranial abnormality. Patchy areas of white matter hypoattenuation most consistent with chronic ischemic small vessel changes. Evidence of small focus of encephalomalacia in the right parietal lobe. Acute infarcts/early ischemic changes may not be detectable by this modality; MRI is more sensitive in detecting acute ischemia.
[2017-04-27] MEDS ORDERED: DEXTROSE 4 GM PO PRN (22:21)
[2017-04-27] MEDS ORDERED: [UNRECOGNIZED DRUG - OTHER] PO PRN (22:21)
[2017-04-27] MEDS ORDERED: Home Med 1 UNIT (Zolpidem [Ambien] 10 MG) PO SCH (22:30)
[2017-04-28] MEDS: (Novolog) Insulin Aspart, Recombinant 100 u/ml 10 ml vial SC SCH ×3 (07:53→17:03)
[2017-04-28 08:04] LABS: BASO % 0.4 % (0.0-2.0); EOS # 0.4 K/uL (0.0-0.7); EOS % 5.5 % (0.0-4.0); HEMOGLOBIN 13.1 g/dL (12.0-18.0); LYMPH # 1.6 K/uL (1.0-4.3); LYMPH % 21.7 % (20.0-40.0); MEAN CELL VOLUME 89.1 fL (80.0-94.0); MEAN CORPUSCULAR HEMOGLOBIN 30.7 pg (27.0-31.0); MEAN CORPUSCULAR HGB CONC 34.5 g/dL (33.0-37.0); MEAN PLATELET VOLUME 7.9 fL (7.2-11.7); MONO % 12.6 % (0.0-10.0); NEUT # 4.5 K/uL (1.8-7.0); NEUT % 59.8 % (50.0-75.0); RBC 4.28 Mil/uL (4.40-5.90); RED CELL DISTRIBUTION WIDTH 13.7 % (11.5-14.5); WHITE BLOOD COUNT 7.6 K/uL (4.8-10.8)
[2017-04-28 08:32] LABS: CK-MB 0.63 ng/mL (0.0-3.38)
[2017-04-28 08:38] LABS: ALB/GLOB RATIO 1.1 (1.0-2.1); ALBUMIN 3.6 g/dL (3.5-5.0); ALT/SGPT 30 U/L (21-72); AST/SGOT 22 U/L (17-59); BLOOD UREA NITROGEN 15 mg/dL (9-20); CALCIUM 8.8 mg/dl (8.6-10.4); GFR AFRICAN-AMERICAN > 60; GFR NON-AFRICAN AMERICAN > 60
[2017-04-28] MEDS ORDERED: Divalproex 500 mg ER Tab PO SCH (10:00)
[2017-04-28] MEDS ORDERED: VALSARTAN 320 MG PO SCH (10:00)
[2017-04-28] MEDS ORDERED: CLONAZEPAM 0.5 MG PO SCH (10:00)
[2017-04-28] MEDS ORDERED: Aspirin-Dipyridamole 200-25 mg ER Cap PO SCH (10:00)
[2017-04-28] MEDS ORDERED: [UNRECOGNIZED DRUG - OTHER] PO PRN (10:31)
[2017-04-28] MEDS ORDERED: DEXTROSE 4 GM PO PRN (10:31)
[2017-04-28] MEDS: Enoxaparin 40 mg Syringe SC SCH (10:55)
[2017-04-28] MEDS: Oxybutynin XL 10 mg Tab PO SCH (10:56)
[2017-04-28] MEDS: (Lantus) Insulin Glargine, Recombinant SC SCH (11:00)
--- NOTE | 2017-04-28 11:21 | CP.PCM.PCO ---
Physician Communication Note - Physician Communication Note Physician Communication Note: patient states he sees Dr Dior. I contacted the group to change consult
[2017-04-28] MEDS: Divalproex 500 mg DR Tab PO SCH ×3 (11:25→17:26)
--- NOTE | 2017-04-28 15:17 | CP.PCM.CON ---
History of Present Illness - History of Present Illness History of Present Illness: The pt is a 57 year old man with diabetes and a prior CVA. [place] [facility] [place] and had a coronary angioplasty with a drug eluting stent. the patient arrived in the ER late feb here with tingling weakness, and abdominal pain, and ultimately had an appendectomy and repair of umbilical hernia. no cardiac clearance was requested. He had a colonoscopy by Dr Mojica late March. The pt is told that he has an abnormal cerebral angiogram, with an abnormal posterior vessel, and was told that it was to risky to operate on. the patient has felt badly lately ; confused, sharp brief pangs of chest pain, and was found on the floor by his sister. He also noticed fast heart suhail at times. Glucsoe was 265 at home, he took his diabetic regimen, and was told that his glucoses was 65 in the ER here. The patient wakes up gasping for air at times. pt has been on aggrenox since his stent. TNI and ecg are normal now. CXR read as mild congestion, no BNP level, and portable film in obese patient. . CT of the head" microvascular disease, no acute infarct pt is a non smoker, works a [employer] man Review of Systems - Review of Systems All systems: reviewed and no additional remarkable complaints except (as above.) Past Patient History - Infectious Disease Hx of Infectious Diseases: None - Past Medical History & Family History Past Medical History?: Yes - Past Social History Smoking Status: Never Smoked - CARDIAC Hx Cardiac Disorders: Yes Hx Hypertension: Yes - PULMONARY Hx Respiratory Disorders: No - NEUROLOGICAL Hx Neurological Disorder: Yes HX Cerebrovascular Accident: Yes (December 26, 2016) Hx Transient Ischemic Attacks (TIA): Yes - HEENT Hx HEENT Problems: No - RENAL Hx Chronic Kidney Disease: No - ENDOCRINE/METABOLIC Hx Endocrine Disorders: Yes Hx Diabetes Mellitus Type 2: Yes - HEMATOLOGICAL/ONCOLOGICAL Hx Blood Disorders: No - INTEGUMENTARY Hx Dermatological Problems: No - MUSCULOSKELETAL/RHEUMATOLOGICAL Hx Musculoskeletal Disorders: Yes Hx Falls: Yes (from effects of TIA) - GASTROINTESTINAL Hx Gastrointestinal Disorders: No - GENITOURINARY/GYNECOLOGICAL Hx Genitourinary Disorders: No - PSYCHIATRIC Hx Psychophysiologic Disorder: Yes Hx Bipolar Disorder: Yes Hx Substance Use: No (former) - SURGICAL HISTORY Hx Surgeries: Yes Hx Appendectomy: Yes - ANESTHESIA Hx Anesthesia: Yes Hx Anesthesia Reactions: No Hx Malignant Hyperthermia: No Meds Allergies/Adverse Reactions: Allergies Allergy/AdvReac Type Severity Reaction Status Date / Time Penicillins Allergy SHORTNESS Verified 04/09/17 12:29 OF BREATH - Medications Medications: Current Medications Carvedilol (Coreg) 25 mg PO BID [facility] Last Admin: 04/28/17 10:56 Dose: 25 mg Clonazepam (Klonopin) 0.5 mg PO BID [facility] Last Admin: 04/28/17 11:00 Dose: 0.5 mg Clonidine HCl (Catapres) 0.1 mg PO BID [facility] Last Admin: 04/28/17 11:00 Dose: 0.1 mg Dipyridamole/Aspirin (Aggrenox 25-200 Mg) 1 ea PO BID [facility] Last Admin: 04/28/17 10:57 Dose: 1 ea Divalproex Sodium (Depakote Dr) 1,000 mg PO TID [facility] Last Admin: 04/28/17 13:11 Dose: 1,000 mg Docusate Sodium (Colace) 100 mg PO DAILY PRN PRN Reason: Constipation Enoxaparin Sodium (Lovenox) 40 mg SC DAILY [facility] Last Admin: 04/28/17 10:55 Dose: 40 mg Insulin Aspart (Novolog) 15 unit SC ACTID [facility] Last Admin: 04/28/17 12:30 Dose: 15 unit Insulin Glargine (Lantus) 54 unit SC DAILY [facility] Last Admin: 04/28/17 11:00 Dose: 54 units Losartan Potassium (Cozaar) 100 mg PO DAILY [facility] Last Admin: 04/28/17 11:00 Dose: 100 mg Oxybutynin Chloride (Ditropan Xl) 10 mg PO DAILY [facility] Last Admin: 04/28/17 10:56 Dose: 10 mg Rosuvastatin Calcium (Crestor) 40 mg PO HS [facility] Tamsulosin HCl (Flomax) 0.4 mg PO DAILY [facility] Last Admin: 04/28/17 10:55 Dose: 0.4 mg Zolpidem Tartrate (Ambien) 5 mg PO HS PRN PRN Reason: Insomnia Physical Exam - Constitutional Appears: Well, No Acute Distress - Eye Exam Eye Exam: EOMI - ENT Exam ENT Exam: Mucous Membranes Moist - Neck Exam Neck exam: Positive for: Normal Inspection - Respiratory Exam Respiratory Exam: Clear to Auscultation Bilateral - Cardiovascular Exam Cardiovascular Exam: REGULAR RHYTHM - GI/Abdominal Exam GI & Abdominal Exam: Normal Bowel Sounds - Extremities Exam Extremities exam: Positive for: normal inspection - Back Exam Back exam: NORMAL INSPECTION - Neurological Exam Neurological exam: Alert, Normal Gait, Oriented x3, Reflexes Normal (left sided weakness) - Psychiatric Exam Psychiatric exam: Anxious - Skin Skin Exam: Normal Color Results - Vital Signs Recent Vital Signs: Last Vital Signs Temp 97.5 F L 04/28/17 07:00 Pulse 88 04/28/17 07:50 Resp 18 04/28/17 07:00 BP 136/82 04/28/17 10:56 Pulse Ox 96 04/28/17 07:00 - Labs Result Diagrams: 04/28/17 07:56 04/28/17 07:56 Labs: Laboratory Results - last 24 hr 04/27/17 04/27/17 04/27/17 20:21 20:44 20:44 WBC 8.2 RBC 4.51 Hgb 13.9 Hct 39.9 MCV 88.5 MCH 30.8 MCHC 34.9 RDW 13.7 Plt Count 287 MPV 7.9 Neut % (Auto) 58.1 Lymph % (Auto) 25.5 Chaves % (Auto) 11.1 H Eos % (Auto) 4.9 H Baso % (Auto) 0.4 Neut # (Auto) 4.8 Lymph # (Auto) 2.1 Chaves # (Auto) 0.9 H Eos # (Auto) 0.4 Baso # (Auto) 0.0 PT 11.1 INR 1.0 APTT 33 D-Dimer, Quantitative 200 Sodium Potassium Chloride Carbon Dioxide Anion Gap BUN Creatinine Est GFR ( Amer) Est GFR (Non-Af Amer) POC Glucose (mg/dL) 71 Random Glucose Calcium Total Bilirubin AST ALT Alkaline Phosphatase Total Creatine Kinase CK-MB (Mass) Troponin I Total Protein Albumin Globulin Albumin/Globulin Ratio Serum Ketones 04/27/17 04/27/17 04/28/17 20:44 21:21 06:27 WBC RBC Hgb Hct MCV MCH MCHC RDW Plt Count MPV Neut % (Auto) Lymph % (Auto) Chaves % (Auto) Eos % (Auto) Baso % (Auto) Neut # (Auto) Lymph # (Auto) Chaves # (Auto) Eos # (Auto) Baso # (Auto) PT INR APTT D-Dimer, Quantitative Sodium 143 Potassium 4.0 Chloride 105 Carbon Dioxide 25 Anion Gap 16 BUN 15 Creatinine 0.6 L Est GFR ( Amer) > 60 Est GFR (Non-Af Amer) > 60 POC Glucose (mg/dL) 80 141 H Random Glucose 80 Calcium 9.0 Total Bilirubin 0.4 AST 29 ALT 23 Alkaline Phosphatase 107 Total Creatine Kinase CK-MB (Mass) Troponin I < 0.0120 Total Protein 7.9 Albumin 4.0 Globulin 3.9 Albumin/Globulin Ratio 1.0 Serum Ketones Negative 04/28/17 04/28/17 04/28/17 07:56 07:56 10:49 WBC 7.6 RBC 4.28 L Hgb 13.1 Hct 38.1 MCV 89.1 MCH 30.7 MCHC 34.5 RDW 13.7 Plt Count 270 MPV 7.9 Neut % (Auto) 59.8 Lymph % (Auto) 21.7 Chaves % (Auto) 12.6 H Eos % (Auto) 5.5 H Baso % (Auto) 0.4 Neut # (Auto) 4.5 Lymph # (Auto) 1.6 Chaves # (Auto) 1.0 H Eos # (Auto) 0.4 Baso # (Auto) 0.0 PT INR APTT D-Dimer, Quantitative Sodium 141 Potassium 3.9 Chloride 105 Carbon Dioxide 25 Anion Gap 15 BUN 15 Creatinine 0.8 Est GFR ( Amer) > 60 Est GFR (Non-Af Amer) > 60 POC Glucose (mg/dL) 176 H Random Glucose 142 H Calcium 8.8 Total Bilirubin 0.3 AST 22 ALT 30 Alkaline Phosphatase 103 Total Creatine Kinase 38 L CK-MB (Mass) 0.63 Troponin I < 0.0120 Total Protein 7.0 Albumin 3.6 Globulin 3.4 Albumin/Globulin Ratio 1.1 Serum Ketones 04/28/17 13:59 WBC RBC Hgb Hct MCV MCH MCHC RDW Plt Count MPV Neut % (Auto) Lymph % (Auto) Chaves % (Auto) Eos % (Auto) Baso % (Auto) Neut # (Auto) Lymph # (Auto) Chaves # (Auto) Eos # (Auto) Baso # (Auto) PT INR APTT D-Dimer, Quantitative Sodium Potassium Chloride Carbon Dioxide Anion Gap BUN Creatinine Est GFR ( Amer) Est GFR (Non-Af Amer) POC Glucose (mg/dL) Random Glucose Calcium Total Bilirubin AST ALT Alkaline Phosphatase Total Creatine Kinase 33 L CK-MB (Mass) 0.50 Troponin I < 0.0120 Total Protein Albumin Globulin Albumin/Globulin Ratio Serum Ketones - EKG Data EKG Interpreted by: Myself EKG shows normal: Sinus rhythm (normal except for mild first degree av block) Assessment & Plan - Assessment and Plan (Free Text) Assessment: 1. Chest pain is brief, and non anginal. TNI and ecg negative. 2. Syncope: and confusion, likely from hypoglycemia 3. pt just had a stent and should be either or plavix or brillinta: not persantine. It is imperative that the pt stop ersantine (in aggrenox), start plavix. pt needs plavix for a year. After that, persantine can be substituted for plavix if need be.. 4. Pt likely has sleep apnea, and I will arrange a sleep study after his d/c 5. pt recently had palpitations, and has microvascular disease. Although tachycardia can be from hypoglycemia, the pt is at risk for atrial fib (sleep apnea). Upond discharge, a three week event monitor is advised.0
[2017-04-28] MEDS: Aspirin-Dipyridamole 200-25 mg ER Cap PO SCH (21:14)
[2017-04-28] MEDS ORDERED: Home Med 1 UNIT (Atorvastatin [Lipitor] 80 MG) PO SCH (22:00)
[2017-04-29 00:35] VITALS: TEMP 97.6
[2017-04-29 07:56] VITALS: RESP 21; O2SAT 95
[2017-04-29] MEDS: (Novolog) Insulin Aspart, Recombinant 100 u/ml 10 ml vial SC SCH ×2 (08:23→12:09)
[2017-04-29 08:42] VITALS: PULSE 80
[2017-04-29] MEDS: Divalproex 500 mg DR Tab PO SCH (09:46)
[2017-04-29] MEDS: Enoxaparin 40 mg Syringe SC SCH (09:47)
[2017-04-29] MEDS: Aspirin-Dipyridamole 200-25 mg ER Cap PO SCH (09:48)
[2017-04-29] MEDS: (Lantus) Insulin Glargine, Recombinant SC SCH (09:48)
[2017-04-29] MEDS: Oxybutynin XL 10 mg Tab PO SCH (09:49)
[2017-04-29 09:50] VITALS: BP 139/92
--- NOTE | 2017-04-29 10:32 | HP ---
HISTORY OF PRESENT ILLNESS: The patient is a 57-year-old male who has chief complaint of syncopal episode and chest discomfort, patient is found on the floor by rushed him to the hospital. . SOCIAL HISTORY: Patient is a smoker. PAST MEDICAL HISTORY: Patient has significant past history of hypertension and bipolar disorder. PHYSICAL EXAMINATION: GENERAL: The patient is awake, alert and oriented. VITAL SIGNS: Temperature 98, pulse 90. HEENT: Within normal limits. NECK: Supple. CHEST: Symmetrical. HEART: Regular. ABDOMEN: Soft. EXTREMITIES: No edema. IMPRESSION: The patient does have chest pain, syncope. Patient bed rest, . Kemi Marquez MD
--- NOTE | 2017-04-29 12:07 | CP.PCM.PN ---
Subjective - Date & Time of Evaluation Date of Evaluation: 04/29/17 Time of Evaluation: 10:00 - Subjective Subjective: PGY-[address] Marquez Patient seen and examined at bedside. No acute events reported overnight. Patient denies having further syncopal episode since hospital admission. Patient reports to have good appetite. Patient clarified that he had an cardiac cath done in Feb 2017 without stenting. Patient denies headache, dizziness, shortness of breath, chest pain, nausea, vomiting, or diarrhea. Objective - Vital Signs/Intake and Output Vital Signs (last 24 hours): Temp Pulse Resp BP Pulse Ox 97.6 F 80 21 139/92 H 95 04/29/17 07:00 04/29/17 08:39 04/29/17 07:00 04/29/17 09:46 04/29/17 07:00 Intake and Output: 04/29/17 04/29/17 06:59 18:59 Intake Total 100 Balance 100 - Medications Medications: Current Medications Carvedilol (Coreg) 25 mg PO BID [facility] Last Admin: 04/29/17 09:46 Dose: 25 mg Clonazepam (Klonopin) 0.5 mg PO BID [facility] Last Admin: 04/29/17 09:47 Dose: 0.5 mg Clonidine HCl (Catapres) 0.1 mg PO BID [facility] Last Admin: 04/29/17 09:47 Dose: 0.1 mg Dipyridamole/Aspirin (Aggrenox 25-200 Mg) 1 ea PO BID [facility] Last Admin: 04/29/17 09:48 Dose: 1 ea Divalproex Sodium (Depakote Dr) 1,000 mg PO TID [facility] Last Admin: 04/29/17 09:46 Dose: 1,000 mg Docusate Sodium (Colace) 100 mg PO DAILY PRN PRN Reason: Constipation Enoxaparin Sodium (Lovenox) 40 mg SC DAILY [facility] Last Admin: 04/29/17 09:47 Dose: 40 mg Insulin Aspart (Novolog) 15 unit SC ACTID [facility] Last Admin: 04/29/17 08:23 Dose: Not Given Insulin Glargine (Lantus) 54 unit SC DAILY [facility] Last Admin: 04/29/17 09:48 Dose: 54 units Losartan Potassium (Cozaar) 100 mg PO DAILY [facility] Last Admin: 03/12/18 09:47 Dose: 100 mg Oxybutynin Chloride (Ditropan Xl) 10 mg PO DAILY [facility] Last Admin: 04/29/17 09:49 Dose: 10 mg Rosuvastatin Calcium (Crestor) 40 mg PO HS [facility] Last Admin: 04/28/17 21:13 Dose: 40 mg Tamsulosin HCl (Flomax) 0.4 mg PO DAILY [facility] Last Admin: 04/29/17 09:50 Dose: 0.4 mg Zolpidem Tartrate (Ambien) 5 mg PO HS PRN PRN Reason: Insomnia Last Admin: 04/28/17 21:13 Dose: 5 mg - Labs Labs: 04/28/17 07:56 04/28/17 07:56 PT 11.1 SECONDS (9.7-12.2) 04/27/17 20:44 INR 1.0 04/27/17 20:44 APTT 33 SECONDS (21-34) 04/27/17 20:44 - Constitutional Appears: No Acute Distress - Head Exam Head Exam: ATRAUMATIC - Eye Exam Eye Exam: PERRL - ENT Exam ENT Exam: Mucous Membranes Moist - Neck Exam Neck Exam: Normal Inspection - Respiratory Exam Respiratory Exam: Clear to Ausculation Bilateral, NORMAL BREATHING PATTERN. absent: Wheezes, Respiratory Distress - Cardiovascular Exam Cardiovascular Exam: REGULAR RHYTHM, +S1, +S2. absent: Murmur - GI/Abdominal Exam GI & Abdominal Exam: Soft, Normal Bowel Sounds. absent: Tenderness - Neurological Exam Neurological Exam: Alert, Awake, Oriented x3 Additional comments: Strength Right > Left due to prior CVA - Psychiatric Exam Psychiatric exam: Normal Affect, Normal Mood - Skin Skin Exam: Warm Additional comments: multiple small cuts from shaving, healing, no active bleeding Assessment and Plan - Assessment and Plan (Free Text) Assessment: Syncope -Likely secondary to poor glycemic control -Patient is on multiple diabetic medications at home -No CT evidence of acute intracranial abnormality -Insulin Apidra 15 units ACTID -Insulin Basaglar 54 units daily -Patient already has an appointment to see product safety associate Dr. Urbina upon discharge CAD -S/P cardiac cath 02/2017 without stent -Aggrenox PO BID -Lipitor 80mg po -coreg 25mg po BID -Valsartan 320mg po Palpitations -Follow cardiology recommendations -Tachycardia likely due to hypoglycemia or anxiety -Outpatient event monitor is recommended -Patient will follow up with his fountain manager Dr. Dior for further outpatient workups Chest pain -Resolved -Troponin negative x3 -ECG no acute ST changes Case discussed with attending physician Dr. Marquez, all management per Dr. Marquez
--- NOTE | 2017-04-29 20:22 | CARD ---
APPROVED REPORT EKG Measurement Heart [id number] OR [id number] <Conclusion> Sinus rhythm with 1st degree AV block Otherwise normal ECG
== END 2017-04-29 13:27 | disposition home or self-care (01) ==
LOC: C.ER 20:16 → INTOOBSV 22:19 → C.9E 22:19 → C.5S 22:48
PROVIDERS: ADMIT Internal Medicine Pulmonary Disease; ATTEND Internal Medicine Pulmonary Disease
DX: E11.649 Type 2 diabetes mellitus with hypoglycemia without coma (principal); I69.354 Hemiplegia and hemiparesis following cerebral infarction affecting left non-dominant side; I10 Essential (primary) hypertension; I25.10 Atherosclerotic heart disease of native coronary artery without angina pectoris; R00.0 Tachycardia, unspecified; R07.89 Other chest pain; F17.200 Nicotine dependence, unspecified, uncomplicated; G47.30 Sleep apnea, unspecified; F41.9 Anxiety disorder, unspecified; F31.9 Bipolar disorder, unspecified; Z90.49 Acquired absence of other specified parts of digestive tract; Z79.4 Long term (current) use of insulin
CPT/HCPCS: 36415; 70450; 71045; 80053; 82009; 82948; 83880; 84484; 85025; 85378; 85610; 85730; 93005; 99285; G0378; J1650

== ENCOUNTER 2018-03-29 10:35 | Inpatient (IN) | payer OTHER ==
[2018-03-29 10:36] VITALS: BMI 35.3
[2018-03-29] MEDS ORDERED: Iodixanol 320 MG/ML 200 ML BOTTLE IV ONE (10:45)
--- NOTE | 2018-03-29 10:46 | C.PDOC ---
History Of Present Illness 58 year old male with a history of stroke (August 2017, December 2017) presents to the emergency department via EMS with complaints of left-sided weakness. As per patient's sister, patient refused TPA treatment the last two times. Patient states that he developed a sudden onset of slurred speech, left facial droop, left arm, and left leg weakness at 9:30AM this morning. As per EMS, patient's slurred speech is getting worse. Patient is currently taking Aspirin and Plavix. Patient denies headache and fever. Time Seen by Provider: 03/29/18 10:39 Chief Complaint (Nursing): Weakness/Neurological Deficit History Per: Patient History/Exam Limitations: no limitations Onset/Duration Of Symptoms: Hrs (1) Current Symptoms Are (Timing): Still Present - Symptoms Of CVA Associated Symptoms: Other (left-sided facial droop, slurred speech, left arm and left leg weakness. ) Recent Aspirin Use: Yes (Last Taken) Past Medical History Reviewed: Historical Data, Nursing Documentation, Vital Signs - Medical History PMH: Bipolar Disorder, HTN, Hypercholesterolemia, TIA Denies: Chronic Kidney Disease Surgical History: Appendectomy, Endoscopy - [facility] Procedures INSPECTION OF LOWER INTESTINAL TRACT, PERC ENDO APPROACH (03/14/17) RESECTION OF APPENDIX, OPEN APPROACH (03/14/17) Family History: States: Unknown Family Hx - Social History Hx Alcohol Use: No Hx Substance Use: Yes (cocaine clean x 3 years) - Immunization History Hx Tetanus Toxoid Vaccination: Yes Hx Influenza Vaccination: Yes Hx Pneumococcal Vaccination: No Review Of Systems Except As Marked, All Systems Reviewed And Found Negative. Constitutional: Negative for: Fever Neurological: Positive for: Weakness, Change in Speech, Other (left-sided facial droop). Negative for: Headache Physical Exam - Physical Exam Appears: Non-toxic, No Acute Distress Skin: Normal Color, Warm, Dry Head: Atraumatic, Normacephalic, Other (left-sided facial droop) Eye(s): bilateral: Normal Inspection, PERRL, EOMI Nose: Normal Oral Mucosa: Moist Neck: Normal, Supple Chest: Symmetrical, No Tenderness Cardiovascular: Rhythm Regular, No Murmur Respiratory: Normal Breath Sounds, No Rales, No Rhonchi, No Wheezing Neurological/Psych: Oriented x3, No Normal Speech (slurred), No Normal Sensation (left-sided sensation deficit), Other (left arm and left leg weakness) ED Course And Treatment - Laboratory Results Result Diagrams: 03/29/18 10:43 03/29/18 10:43 Interpretation Of ECG: Sinus rhythm at 77bpm, borderline ST elevation in lead 2. Unchanged from previous EKG 04/2017. - Other Rad CTA Head/Neck Code Stroke X-Ray: Viewed By Me, Read By Radiologist Interpretation: IMPRESSION: 1. 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 CT angiogram of the brain is otherwise unchanged without additional significant stenosis or occlusion. 2. No significant stenosis bilateral common or internal carotid arteries in the neck. Patent bilateral vertebral arteries in the neck. - CT Scan/US CT Head Other Rad Studies (CT/US): Read By Radiologist, Radiology Report Reviewed CT/US Interpretation: IMPRESSION: Stable minimal age related neuro degenerative change. No acute intracranial findings as compared prior head CT 04/27/2017. Follow-up CT or MRI are available as clinically warranted. Discussed with Dr. Jimenez with written down and read back verification 03/29/2018 10:52 a.m.. Critical Care Time - Critical Care Note Total Time (in mins): 40 Documented critical care: time excludes all time spent performing seperately billable procedures. Medical Decision Making Medical Decision Making: Plan: Blood Bank Type and Screen CTA Head/Neck Code Stroke CT Head EKG Chemistry Bloodwork CXR Code Stroke called 10:[address] Kennedy 10:43, recommended call back when CT scan results are obtained. Bolus of TPA given at 11:[address] Kennedy 11:25, states that she has viewed the CTA report and is wait ing for interventional neurology to evaluate the patient. Called Dr. Lizarraga, patient's PMD at 13:20, waiting for response. Spoke to Dr. Toure at 13:25, made aware of the case and accepted the patient to ICU. Spoke to Dr. Lizarraga at 13:48, recommended admission to hospitalist service. Dr. Tristen Palma states patient is to go to medicine. Disposition Discussed With : Nadia Palma Doctor Will See Patient In The: Hospital Counseled Patient/Family Regarding: Diagnosis - Disposition Disposition: HOSPITALIZED Disposition Time: 14:17 Condition: SERIOUS Forms: [facility] (Romanian) - POA Present On Arrival: None - Clinical Impression Clinical Impression: CVA (cerebral vascular accident) - Scribe Statement The provider has reviewed the documentation as recorded by the Scribe (Elieser Bailey) Provider Attestation: All medical record entries made by the Scribe were at my direction and personally dictated by me. I have reviewed the chart and agree that the record accurately reflects my personal performance of the history, physical exam, medical decision making, and the department course for this patient. I have also personally directed, reviewed, and agree with the discharge instructions and disposition. NIHSS Stroke Scale - How Severe is the Stoke Level of Consciousness: 0=Alert LOC to Questions: 0=Both comments correct LOC to commands: 0=Obeys both correctly Best Gaze: 0=Normal Visual: 0=No visual loss Facial: 1=Minor asymmetry Motor Arm - Left: 1=Drift noted before 10 sec Motor Arm - Right: 0=No drift Motor Leg - Left: 1=Drift before 5 sec Motor Leg - Right: 0=No drift Limb Ataxia: 0=Absent Sensory: 1=Mild to moderate loss Best Language: 0=No aphasia Dysarthia: 1=Mild to moderate slurring Extinction & Inattention (Neglect): 0=Normal, no object Score: 5
[2018-03-29 10:51] LABS: BASO % 0.6 % (0.0-2.0); EOS # 0.3 K/uL (0.0-0.7); EOS % 4.1 % (0.0-4.0); HEMOGLOBIN 14.3 g/dL (12.0-18.0); LYMPH # 1.3 K/uL (1.0-4.3); LYMPH % 18.5 % (20.0-40.0); MEAN CELL VOLUME 88.4 fL (80.0-94.0); MEAN CORPUSCULAR HEMOGLOBIN 30.5 pg (27.0-31.0); MEAN CORPUSCULAR HGB CONC 34.5 g/dL (33.0-37.0); MEAN PLATELET VOLUME 8.1 fL (7.2-11.7); MONO # 0.7 K/uL (0.0-0.8); MONO % 9.5 % (0.0-10.0); NEUT # 4.6 K/uL (1.8-7.0); NEUT % 67.3 % (50.0-75.0); NRBC % 0.1 % (0.0-2.0); RBC 4.7 Mil/uL (4.40-5.90); RED CELL DISTRIBUTION WIDTH 13.2 % (11.5-14.5); WHITE BLOOD COUNT 6.9 K/uL (4.8-10.8)
[2018-03-29 10:58] LABS: INR 1.1; PROTHROMBIN TIME 11.5 SECONDS (9.7-12.2)
--- NOTE | 2018-03-29 11:00 | CT ---
Date of service: 03/29/2018 PROCEDURE: CT HEAD WITHOUT CONTRAST. HISTORY: Code Stroke COMPARISON: Unenhanced head CT 04/27/2017. TECHNIQUE: Axial computed tomography images were obtained through the head/brain without intravenous contrast. Radiation dose: Total exam DLP = 1367.52 mGy-cm. This CT exam was performed using one or more of the following dose reduction techniques: Automated exposure control, adjustment of the mA and/or kV according to patient size, and/or use of iterative reconstruction technique. FINDINGS: HEMORRHAGE: No intracranial hemorrhage. BRAIN: Trace subcortical patchy white matter disease again identified minimally, compatible chronic microangiopathy. No mass effect. Midline brain anatomy normal. No suspicious extra-axial collection appreciated. Posterior fossa contents unremarkable. VENTRICLES: Unremarkable. No hydrocephalus. CALVARIUM: Unremarkable. PARANASAL SINUSES: Unremarkable as visualized. No significant inflammatory changes. MASTOID AIR CELLS: Unremarkable as visualized. No inflammatory changes. OTHER FINDINGS: None. IMPRESSION: Stable minimal age related neuro degenerative change. No acute intracranial findings as compared prior head CT 04/27/2017. Follow-up CT or MRI are available as clinically warranted. Discussed with Dr. Jimenez with written down and read back verification 03/29/2018 10:52 a.m..
[2018-03-29 11:07] LABS: ALB/GLOB RATIO 1.3 (1.0-2.1); ALBUMIN 4.4 g/dL (3.5-5.0); ALT/SGPT 25 U/L (21-72); AST/SGOT 24 U/L (17-59); BLOOD UREA NITROGEN 13 mg/dL (9-20); CALCIUM 9.5 mg/dl (8.6-10.4); GFR NON-AFRICAN AMERICAN > 60; HDL CHOLESTEROL 46 mg/dL (30-70)
[2018-03-29 11:18] LABS: LDL CHOLESTEROL 65 mg/dL (0-129)
--- NOTE | 2018-03-29 11:21 | CT ---
Date of service: 03/29/2018 PROCEDURE: CT Angiography of the Brain. HISTORY: code stroke COMPARISON: CTA head and neck 03/14/2017. TECHNIQUE: CT angiography of the head and neck was performed following intravenous contrast administration. Coronal and sagittal maximum intensity projection reformatted images were generated. Contrast Dose: Visipaque 320, 100 cc Radiation dose: Total exam DLP = 701.03 mGy-cm. This CT exam was performed using one or more of the following dose reduction techniques: Automated exposure control, adjustment of the mA and/or kV according to patient size, and/or use of iterative reconstruction technique. FINDINGS: INTERNAL CEREBRAL ARTERIES: Unremarkable. The skull base, petrous, cavernous and supraclinoid segments are bilaterally widely patent. ANTERIOR CEREBRAL ARTERIES: Unremarkable. A1 and A2 segments are widely patent. Smaller distal branches unremarkable, as visualized. MIDDLE CEREBRAL ARTERIES: Unremarkable. M1 and M2 segments are widely patent. Perisylvian branches grossly symmetric. POSTERIOR CIRCULATION: Basilar Artery: Unremarkable. Distal Vertebral Arteries: Left dominant vertebrobasilar circulation. Stable high-grade stenosis proximal intracranial left vertebral artery segment again evident. Posterior Cerebral Arteries: Unremarkable. Posterior Inferior Cerebellar Arteries: Unremarkable. NECK CTA: Common Carotid arteries: The bilateral common carotid appear widely patent from their origins to their bifurcations with no significant stenosis appreciated. No evidence to suggest common carotid artery dissection. Trace left carotid bulbar atherosclerotic plaque reiterated. Internal Carotid arteries: No significant stenosis is appreciated throughout the cervical internal carotid artery segments bilaterally and there is no evidence of dissection either. External Carotid arteries: Appear unremarkable bilaterally. Vertebral arteries: The bilateral vertebral arteries appear normal in caliber from their origins to their distal cervical segments. No significant stenosis or definite pattern of dissection. ANEURYSM/ VASCULAR MALFORMATIONS: None. OTHER FINDINGS: None. IMPRESSION: 1. 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 CT angiogram of the brain is otherwise unchanged without additional significant stenosis or occlusion. 2. No significant stenosis bilateral common or internal carotid arteries in the neck. Patent bilateral vertebral arteries in the neck.
[2018-03-29] MEDS: Sodium Chloride 0.9% 1,000 ML IV SCH (14:19)
--- NOTE | 2018-03-29 17:30 | CP.PCM.CON ---
History of Present Illness - History of Present Illness History of Present Illness: Patient is a 58-year-old male history of bipolar disease hypertension high cholesterol history of TIA in the past. He had a history of appendectomy and endoscopy. Patient admitted to the emergency room with the sudden history of weakness, left arm weakness left leg weakness as well as slurred speech. Patient also had a history of stroke in the past. He is taking aspirin and Plavix. He denies any headache. In the emergency room patient was evaluated, code stroke called in, CAT scan of the head negative, immediately TPA was given and patient was transferred to ICU. Patient is now being monitored closely. Patient is feeling slightly better. Some improvement in the weakness noted he had no chest pain or shortness of breath Past medical history as noted above Surgical history appendectomy and endoscopy Allergies no known drug allergy except penicillin Non-smoker nonalcoholic history of substance abuse cocaine but clean 3 years Review of system noted. Complaining of improvement in the speech Weakness improving also. Some heaviness in the left arm noted. No chest pain. He is feeling hungry, he is able to swallow On examination: Vital signs reviewed Stable. Chest good air entry Regular heart sounds noted Nontender abdomen No pedal edema Labs reviewed Assessment and recommendation: Patient is a 58-year-old male admitted to the hospital with acute CVA Status post TPA Close monitoring. Neuro watch. We will continue to monitor and will follow the patient Past Patient History - Infectious Disease Hx of Infectious Diseases: None - Past Medical History & Family History Past Medical History?: Yes - Past Social History Smoking Status: Never Smoked - CARDIAC Hx Hypercholesterolemia: Yes Hx Hypertension: Yes - PULMONARY Hx Respiratory Disorders: No - NEUROLOGICAL Hx Transient Ischemic Attacks (TIA): Yes - HEENT Hx HEENT Problems: Yes Hx Cataracts: Yes Hx Glaucoma: Yes - RENAL Hx Chronic Kidney Disease: No - ENDOCRINE/METABOLIC Hx Endocrine Disorders: Yes Hx Diabetes Mellitus Type 2: Yes - HEMATOLOGICAL/ONCOLOGICAL Hx Blood Disorders: No - INTEGUMENTARY Hx Dermatological Problems: No - MUSCULOSKELETAL/RHEUMATOLOGICAL Hx Musculoskeletal Disorders: Yes Hx Falls: Yes (from effects of TIA) - GASTROINTESTINAL Hx Gastrointestinal Disorders: No - GENITOURINARY/GYNECOLOGICAL Hx Genitourinary Disorders: Yes Hx Prostate Problems: Yes - PSYCHIATRIC Hx Bipolar Disorder: Yes Hx Substance Use: Yes (cocaine clean x 3 years) - SURGICAL HISTORY Hx Appendectomy: Yes - ANESTHESIA Hx Anesthesia: Yes Hx Anesthesia Reactions: No Hx Malignant Hyperthermia: No Meds Allergies/Adverse Reactions: Allergies Allergy/AdvReac Type Severity Reaction Status Date / Time Penicillins Allergy SHORTNESS Verified 04/09/17 12:29 OF BREATH - Medications Medications: Current Medications Sodium Chloride (Sodium Chloride 0.9%) 1,000 mls @ 100 mls/hr IV .Q10H STEVE Last Admin: 03/29/18 14:19 Dose: 100 mls/hr Results - Vital Signs Recent Vital Signs: Last Vital Signs Temp 98.1 F 03/29/18 16:24 Pulse 78 03/29/18 16:24 Resp 16 03/29/18 16:24 BP 124/81 03/29/18 16:24 Pulse Ox 98 03/29/18 16:24 - Labs Result Diagrams: 03/30/18 06:25 03/30/18 06:25 Labs: Laboratory Results - last 24 hr 03/29/18 03/29/18 03/29/18 10:38 10:43 10:43 WBC 6.9 RBC 4.70 Hgb 14.3 Hct 41.6 MCV 88.4 MCH 30.5 MCHC 34.5 RDW 13.2 Plt Count 247 MPV 8.1 Neut % (Auto) 67.3 Lymph % (Auto) 18.5 L Bryan % (Auto) 9.5 Eos % (Auto) 4.1 H Baso % (Auto) 0.6 Neut # (Auto) 4.6 Lymph # (Auto) 1.3 Bryan # (Auto) 0.7 Eos # (Auto) 0.3 Baso # (Auto) 0.0 PT 11.5 INR 1.1 APTT 41 H Sodium Potassium Chloride Carbon Dioxide Anion Gap BUN Creatinine Est GFR ( Amer) Est GFR (Non-Af Amer) POC Glucose (mg/dL) 130 H Random Glucose Calcium Total Bilirubin AST ALT Alkaline Phosphatase Troponin I Total Protein Albumin Globulin Albumin/Globulin Ratio Triglycerides Cholesterol LDL Cholesterol Direct HDL Cholesterol Blood Type Antibody Screen 03/29/18 03/29/18 10:43 10:43 WBC RBC Hgb Hct MCV MCH MCHC RDW Plt Count MPV Neut % (Auto) Lymph % (Auto) Bryan % (Auto) Eos % (Auto) Baso % (Auto) Neut # (Auto) Lymph # (Auto) Bryan # (Auto) Eos # (Auto) Baso # (Auto) PT INR APTT Sodium 140 Potassium 4.3 Chloride 104 Carbon Dioxide 31 H Anion Gap 10 BUN 13 Creatinine 0.7 L Est GFR ( Amer) > 60 Est GFR (Non-Af Amer) > 60 POC Glucose (mg/dL) Random Glucose 143 H Calcium 9.5 Total Bilirubin 0.5 AST 24 ALT 25 Alkaline Phosphatase 152 H D Troponin I < 0.0120 Total Protein 7.8 Albumin 4.4 Globulin 3.4 Albumin/Globulin Ratio 1.3 Triglycerides 108 D Cholesterol 131 LDL Cholesterol Direct 65 HDL Cholesterol 46 Blood Type O POSITIVE Antibody Screen Negative
--- NOTE | 2018-03-29 18:35 | RAD ---
Date of service: 03/29/2018 HISTORY: Code Stroke COMPARISON: Portable chest 04/27/2017. FINDINGS: LUNGS: No active pulmonary disease. PLEURA: No significant pleural effusion identified, no pneumothorax apparent. CARDIOVASCULAR: No aortic atherosclerotic calcification present. Stable cardiomegaly. No pulmonary vascular congestion. OSSEOUS STRUCTURES: No significant abnormalities. VISUALIZED UPPER ABDOMEN: Normal. OTHER FINDINGS: None. IMPRESSION: Stable cardiomegaly. No acute pulmonary disease. No interval pulmonary vascular congestion.
--- NOTE | 2018-03-29 23:30 | CP.PCM.CON ---
History of Present Illness - History of Present Illness History of Present Illness: 58 yr old male, right handed per his report, was well until about 945 this am when he developed sudden, witnessed dysarthria and aphasia, with left leg and arm weakness, leg more than arm. He came to [facility] at about 10 15 am, and was evaluated and given IV alteplase at about 1045 am. 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 PMH/PSH Fh/SH All: On exam: Exam is done after TPA given. Alert, aware and oriented times 3. LEft sided facial droop. speech dysarthric. Can name and repeat. no apraxia noted. Mild dysarthria noted. Motor; left pick out hand is 4/5, and left leg is 3/5. Decreased ft, pin in left leg and arm. positon and vibration sense are intact. +2 dtr ul and ll bl. Toes downgoing. No clonus. Gait not tested. Review of Systems - Review of Systems Systems not reviewed;Unavailable: Acuity of Condition, Unstable Vital Signs, Respiratory Distress, Dementia, Altered Mental Status, Intoxicated, Uncooperative, Psychotic, Intubated, Language Barrier, Other - Constitutional Constitutional: absent: As Per HPI, Anorexia, Chills, Daytime Sleepiness, Excessive Sweating, Fatigue, Fever, Frequent Falls, Headache, Increased Appetite, Lethargy, Malaise, Night Sweats, Snoring, Sleep Apnea, Weight Gain, Weight Loss, Weakness, Other - EENT Eyes: absent: As Per HPI, Blind Spots, Blurred Vision, Change in Vision, Decreased Night Vision, Diplopia, Discharge, Dry Eye, Exophthalmos, Floaters, Irritation, Itchy Eyes, Loss of Peripheral Vision, Pain, Photophobia, Requires Corrective Lenses, Sees Flashes, Spots in Vision, Tunnel Vision, Other Visual Disturbances, Loss of Vision, Other Ears: absent: As Per HPI, Decreased Hearing, Ear Discharge, Ear Pain, Tinnitus, Abnormal Hearing, Disequilibrium, Dizziness, Other Nose/Mouth/Throat: absent: As Per HPI, Epistaxis, Nasal Congestion, Nasal Discharge, Nasal Obstruction, Nasal Trauma, Nose Pain, Post Nasal Drip, Sinus Pain, Sinus Pressure, Bleeding Gums, Change in Voice, Dental Pain, Dry Mouth, Dysphagia, Halitosis, Hoarsness, Lip Swelling, Mouth Lesions, Mouth Pain, Odynophagia, Sore Throat, Throat Swelling, Tongue Swelling, Facial Pain, Neck Pain, Neck Mass, Other - Cardiovascular Cardiovascular: absent: As Per HPI, Acrocyanosis, Chest Pain, Chest Pain at Rest, Chest Pain with Activity, Claudication, Diaphoresis, Dyspnea, Dyspnea on Exertion, Edema, Irregular Heart Rhythm, Pain Radiating to Arm/Neck/Jaw, Leg Edema, Leg Ulcers, Lightheadedness, Orthopnea, Palpitations, Paroxysmal Nocturnal Dyspnea, Pedal Edema, Radiating Pain, Rapid Heart Rate, Slow Heart Rate, Syncope, Other - Respiratory Respiratory: absent: As Per HPI, Cough, Dyspnea, Hemoptysis, Dyspnea on Exertion, Wheezing, Snoring, Stridor, Pain on Inspiration, Chest Congestion, Excessive Mucous Production, Change in Mucous Color, Pain with Coughing, Other - Gastrointestinal Gastrointestinal: absent: As Per HPI, Abdominal Pain, Belching, Bloating, Change in Bowel Habits, Change in Stool Character, Coffee Ground Emesis, Constipation, Cramping, Diarrhea, Dyspepsia, Dysphagia, Early Satiety, Excessive Flatus, Fecal Incontinence, Heartburn, Hematemesis, Hematochezia, Loose Stools, Melena, Nausea, Odynophagia, Temesmus, Vomiting, Other - Neurological Neurological: Lack of Coordination. absent: As Per HPI, Abnormal Gait, Abnormal Hearing, Abnormal Movements, Abnormal Speech, Behavioral Changes, Burning Sensations, Confusion, Convulsions, Disequilibrium, Dizziness, Numbness, Focal Weakness, Frequent Falls, Headaches, Loss of Vision, Memory Loss, Paresthesias, Radicular Pain, Restless Legs, Sensory Deficit, Syncope, Tingling, Tremor, Vertigo, Weakness, Other Visual Disturbances, Other Past Patient History - Infectious Disease Hx of Infectious Diseases: None - Past Medical History & Family History Past Medical History?: Yes - Past Social History Smoking Status: Never Smoked - CARDIAC Hx Hypercholesterolemia: Yes Hx Hypertension: Yes - PULMONARY Hx Respiratory Disorders: No - NEUROLOGICAL Hx Neurological Disorder: Yes HX Cerebrovascular Accident: Yes Hx Transient Ischemic Attacks (TIA): Yes Other/Comment: tia vs cva - HEENT Hx HEENT Problems: Yes Hx Cataracts: Yes Hx Glaucoma: Yes - RENAL Hx Chronic Kidney Disease: No - ENDOCRINE/METABOLIC Hx Endocrine Disorders: Yes Hx Diabetes Mellitus Type 2: Yes - HEMATOLOGICAL/ONCOLOGICAL Hx Blood Disorders: No - INTEGUMENTARY Hx Dermatological Problems: No - MUSCULOSKELETAL/RHEUMATOLOGICAL Hx Musculoskeletal Disorders: Yes Hx Falls: Yes (from effects of TIA) - GASTROINTESTINAL Hx Gastrointestinal Disorders: No - GENITOURINARY/GYNECOLOGICAL Hx Genitourinary Disorders: Yes Hx Prostate Problems: Yes - PSYCHIATRIC Hx Bipolar Disorder: Yes Hx Substance Use: Yes (cocaine clean x 3 years) Other/Comment: hx use of cocaine stopped many years ago - SURGICAL HISTORY Hx Surgeries: Yes Hx Appendectomy: Yes Other/Comment: prostate sx - ANESTHESIA Hx Anesthesia: Yes Hx Anesthesia Reactions: No Hx Malignant Hyperthermia: No Meds Allergies/Adverse Reactions: Allergies Allergy/AdvReac Type Severity Reaction Status Date / Time Penicillins Allergy SHORTNESS Verified 04/09/17 12:29 OF BREATH - Medications Medications: Current Medications Aspirin (Ecotrin) 81 mg PO DAILY [facility] Carvedilol (Coreg) 25 mg PO BID [facility] Clopidogrel Bisulfate (Plavix) 75 mg PO DAILY [facility] Divalproex Sodium (Depakote Dr) 1,000 mg PO TID [facility] Sodium Chloride (Sodium Chloride 0.9%) 1,000 mls @ 100 mls/hr IV .Q10H [facility] Last Admin: 03/29/18 14:19 Dose: 100 mls/hr Latanoprost (Xalatan Opht) 0 ml OU HS [facility] Losartan Potassium (Cozaar) 100 mg PO DAILY [facility] Metformin HCl (Glucophage) 500 mg PO DAILY [facility] Pantoprazole Sodium (Protonix Inj) 40 mg IVP DAILY [facility] Pregabalin (Lyrica) 75 mg PO BID [facility] Rosuvastatin Calcium (Crestor) 40 mg PO HS [facility] Tamsulosin HCl (Flomax) 0.4 mg PO DAILY [facility] Results - Vital Signs Recent Vital Signs: Last Vital Signs Temp 97.8 F 03/29/18 20:30 Pulse 96 H 03/29/18 22:30 Resp 16 03/29/18 22:30 BP 117/75 03/29/18 22:30 Pulse Ox 96 03/29/18 22:30 - Labs Result Diagrams: 03/29/18 10:43 03/29/18 10:43 Labs: Laboratory Results - last 24 hr 03/29/18 03/29/18 03/29/18 10:38 10:43 10:43 WBC 6.9 RBC 4.70 Hgb 14.3 Hct 41.6 MCV 88.4 MCH 30.5 MCHC 34.5 RDW 13.2 Plt Count 247 MPV 8.1 Neut % (Auto) 67.3 Lymph % (Auto) 18.5 L Johnson % (Auto) 9.5 Eos % (Auto) 4.1 H Baso % (Auto) 0.6 Neut # (Auto) 4.6 Lymph # (Auto) 1.3 Johnson # (Auto) 0.7 Eos # (Auto) 0.3 Baso # (Auto) 0.0 PT 11.5 INR 1.1 APTT 41 H Sodium Potassium Chloride Carbon Dioxide Anion Gap BUN Creatinine Est GFR ( Amer) Est GFR (Non-Af Amer) POC Glucose (mg/dL) 130 H Random Glucose Calcium Total Bilirubin AST ALT Alkaline Phosphatase Troponin I Total Protein Albumin Globulin Albumin/Globulin Ratio Triglycerides Cholesterol LDL Cholesterol Direct HDL Cholesterol Blood Type Antibody Screen 03/29/18 03/29/18 03/29/18 10:43 10:43 17:55 WBC RBC Hgb Hct MCV MCH MCHC RDW Plt Count MPV Neut % (Auto) Lymph % (Auto) Johnson % (Auto) Eos % (Auto) Baso % (Auto) Neut # (Auto) Lymph # (Auto) Johnson # (Auto) Eos # (Auto) Baso # (Auto) PT INR APTT Sodium 140 Potassium 4.3 Chloride 104 Carbon Dioxide 31 H Anion Gap 10 BUN 13 Creatinine 0.7 L Est GFR ( Amer) > 60 Est GFR (Non-Af Amer) > 60 POC Glucose (mg/dL) 100 Random Glucose 143 H Calcium 9.5 Total Bilirubin 0.5 AST 24 ALT 25 Alkaline Phosphatase 152 H D Troponin I < 0.0120 Total Protein 7.8 Albumin 4.4 Globulin 3.4 Albumin/Globulin Ratio 1.3 Triglycerides 108 D Cholesterol 131 LDL Cholesterol Direct 65 HDL Cholesterol 46 Blood Type O POSITIVE Antibody Screen Negative 03/29/18 21:25 WBC RBC Hgb Hct MCV MCH MCHC RDW Plt Count MPV Neut % (Auto) Lymph % (Auto) Johnson % (Auto) Eos % (Auto) Baso % (Auto) Neut # (Auto) Lymph # (Auto) Johnson # (Auto) Eos # (Auto) Baso # (Auto) PT INR APTT Sodium Potassium Chloride Carbon Dioxide Anion Gap BUN Creatinine Est GFR ( Amer) Est GFR (Non-Af Amer) POC Glucose (mg/dL) 112 H Random Glucose Calcium Total Bilirubin AST ALT Alkaline Phosphatase Troponin I Total Protein Albumin Globulin Albumin/Globulin Ratio Triglycerides Cholesterol LDL Cholesterol Direct HDL Cholesterol Blood Type Antibody Screen Assessment & Plan - Assessment and Plan (Free Text) Assessment: Neuroimaging: CT head: normal, no strokes or hemorrhages. CTA head and neck: Plan: Plan: 1. Admit to ICU 2. Neuro checks q 2 hours and please call neurology travel occupational therapist for any change in mental status. 3. no anticoagulants for [address] head in 24 hours 5. LIpid profile. 6. Have spoken to neurointerventional team about planned intervention on surgery for stent. We will wait for Saturday to continue with planned surgery. 7. Start aspirin in 36 hours. 8. MRI Brain without arash as soon as possible. 9. maintain BP at around 160/80 10. Iv fluids normal saline 100 ccs per hour. THank you for consulting neurology Dr. Kennedy
[2018-03-30] MEDS: Sodium Chloride 0.9% 1,000 ML IV SCH ×4 (03:40→23:06)
[2018-03-30 06:32] LABS: BASO % 0.5 % (0.0-2.0); EOS # 0.3 K/uL (0.0-0.7); EOS % 4.2 % (0.0-4.0); HEMOGLOBIN 13.2 g/dL (12.0-18.0); LYMPH # 1.7 K/uL (1.0-4.3); LYMPH % 24.7 % (20.0-40.0); MEAN CELL VOLUME 88.4 fL (80.0-94.0); MEAN CORPUSCULAR HEMOGLOBIN 29.7 pg (27.0-31.0); MEAN CORPUSCULAR HGB CONC 33.5 g/dL (33.0-37.0); MONO # 0.6 K/uL (0.0-0.8); MONO % 8.8 % (0.0-10.0); NEUT # 4.3 K/uL (1.8-7.0); NEUT % 61.8 % (50.0-75.0); RBC 4.45 Mil/uL (4.40-5.90); RED CELL DISTRIBUTION WIDTH 13.5 % (11.5-14.5); WHITE BLOOD COUNT 6.9 K/uL (4.8-10.8)
[2018-03-30 06:46] LABS: ALB/GLOB RATIO 1.2 (1.0-2.1); ALBUMIN 3.7 g/dL (3.5-5.0); ALT/SGPT 24 U/L (21-72); AST/SGOT 22 U/L (17-59); BLOOD UREA NITROGEN 14 mg/dL (9-20); CALCIUM 8.9 mg/dl (8.6-10.4); GFR NON-AFRICAN AMERICAN > 60
[2018-03-30] MEDS: Divalproex 500 mg DR Tab PO SCH ×3 (09:53→17:27)
--- NOTE | 2018-03-30 16:17 | CT ---
Date of service: 03/29/2018 PROCEDURE: CT HEAD WITHOUT CONTRAST. HISTORY: HEADACHE COMPARISON: Noncontrast head CT 03/29/2018 10:47 a.m.. TECHNIQUE: Axial computed tomography images were obtained through the head/brain without intravenous contrast. Radiation dose: Total exam DLP = 1262.74 mGy-cm. This CT exam was performed using one or more of the following dose reduction techniques: Automated exposure control, adjustment of the mA and/or kV according to patient size, and/or use of iterative reconstruction technique. FINDINGS: HEMORRHAGE: No intracranial hemorrhage. BRAIN: Trace chronic microangiopathy reiterated with no cortical edema identified in the interval. No mass effect. Good corticomedullary differentiation is reiterated throughout the cerebrum with the brainstem and cerebellum unremarkable once again. VENTRICLES: Unremarkable. No hydrocephalus. CALVARIUM: Unremarkable. PARANASAL SINUSES: Unremarkable as visualized. No significant inflammatory changes. MASTOID AIR CELLS: Unremarkable as visualized. No inflammatory changes. OTHER FINDINGS: None. IMPRESSION: Stable marginal trace chronic microangiopathy. No interval intracranial hemorrhage, mass effect or cortical edema appreciable. Follow-up MRI available if clinically warranted. Concordant preliminary report from [facility]idgett, 03/29/2018, 8:12 p.m..
--- NOTE | 2018-03-30 16:37 | CP.PCM.PN ---
Subjective - Date & Time of Evaluation Date of Evaluation: 03/30/18 Time of Evaluation: 11:00 - Subjective Subjective: clinically same Objective - Vital Signs/Intake and Output Vital Signs (last 24 hours): Temp Pulse Resp BP Pulse Ox 97.8 F 86 19 144/96 H 93 L 03/29/18 20:30 03/30/18 11:52 03/30/18 11:52 03/30/18 11:52 03/30/18 09:55 Intake and Output: 03/30/18 03/30/18 06:59 18:59 Intake Total 1989 1024 Output Total 1350 600 Balance 640 425 - Medications Medications: Current Medications Aspirin (Aspirin Chewable) 81 mg PO 2200 [facility] Divalproex Sodium (Depakote Dr) 1,000 mg PO TID [facility] Last Admin: 03/30/18 15:29 Dose: 1,000 mg Sodium Chloride (Sodium Chloride 0.9%) 1,000 mls @ 100 mls/hr IV .Q10H [facility] Last Admin: 03/30/18 09:59 Dose: 100 mls/hr Latanoprost (Xalatan Opht) 0 ml OU HS [facility] Losartan Potassium (Cozaar) 100 mg PO DAILY [facility] Last Admin: 03/30/18 09:54 Dose: 100 mg Metformin HCl (Glucophage) 500 mg PO DAILY [facility] Last Admin: 03/30/18 09:53 Dose: 500 mg Pantoprazole Sodium (Protonix Inj) 40 mg IVP DAILY [facility] Last Admin: 03/30/18 09:55 Dose: 40 mg Pregabalin (Lyrica) 75 mg PO BID [facility] Last Admin: 03/30/18 09:54 Dose: 75 mg Rosuvastatin Calcium (Crestor) 40 mg PO HS [facility] Tamsulosin HCl (Flomax) 0.4 mg PO DAILY [facility] Last Admin: 03/30/18 09:53 Dose: 0.4 mg - Labs Labs: 03/30/18 06:25 03/30/18 06:25 PT 11.5 SECONDS (9.7-12.2) 03/29/18 10:43 INR 1.1 03/29/18 10:43 APTT 41 SECONDS (21-34) H 03/29/18 10:43
--- NOTE | 2018-03-30 17:18 | CP.CCUPN ---
CCU Subjective - Physician Review Events Since Last Encounter (Free Text): 03/30/18 17:17 Patient is feeling well. Some improvement in the weakness noted. He is able to stand up. Out of bed to chair. Respiration is 21 blood pressure is stable Patient had a repeat CAT scan no new changes noted. No new complaints Clinical examination is unremarkable. Blood pressures 123/84 heart rate is 90 sinus rhythm Chest good air entry regular Hs nontender abdomen no pedal edema Assessment and recommendation: Patient is a 58-year-old male admitted to the hospital with acute CVA. Status post TPA. We will continue to monitor. Clinically stable. Possible transfer to floor tomorrow CCU Objective - Vital Signs / Intake & Output Intake and Output (Last 8hrs): Intake & Output 03/30/18 03/30/18 03/30/18 06:59 14:59 22:59 Intake Total 1340 1025 Output Total 950 600 Balance 390 425 Weight 272 lb 9 oz Intake: Intake, IV Amount 800 700 Right Antecubital 800 700 Oral 540 325 Output: Urine 950 600 Urine, Voided 950 600 Other: # Voids Urine, Voided 1 # Bowel Movements 0 0 - Medications Active Medications: Active Medications Generic Name Dose Route Start Last Admin Trade Name Freq PRN Reason Stop Dose Admin Aspirin 81 mg 03/30/18 22:00 Aspirin Chewable PO 2200 [facility] Divalproex Sodium 1,000 mg 03/30/18 10:00 03/30/18 15:[address] PO 1,000 mg TID [facility] Administration Sodium Chloride 1,000 mls @ 100 mls/hr 03/29/18 13:30 03/30/18 09:59 Sodium Chloride 0.9% IV 100 mls/hr .Q10H [facility] Administration Latanoprost 0 ml 03/30/18 22:00 Xalatan Opht OU HS [facility] Losartan Potassium 100 mg 03/30/18 10:00 03/30/18 09:54 Cozaar PO 100 mg DAILY [facility] Administration Metformin HCl 500 mg 03/30/18 10:00 03/30/18 09:53 Glucophage PO 500 mg DAILY [facility] Administration Pantoprazole Sodium 40 mg 03/30/18 10:00 03/30/18 09:55 Protonix Inj IVP 40 mg DAILY [facility] Administration Pregabalin 75 mg 03/30/18 10:00 03/30/18 09:54 Lyrica PO 75 mg BID [facility] Administration Rosuvastatin Calcium 40 mg 03/30/18 22:00 Crestor PO HS [facility] Tamsulosin HCl 0.4 mg 03/30/18 10:00 03/30/18 09:53 Flomax PO 0.4 mg DAILY [facility] Administration - Patient Studies Lab Studies: Lab Studies 03/30/18 03/30/18 03/30/18 Range/Units 16:25 11:51 07:37 WBC (4.8-10.8) K/uL RBC (4.40-5.90) Mil/uL Hgb (12.0-18.0) g/dL Hct (35.0-51.0) % MCV (80.0-94.0) fL MCH (27.0-31.0) pg MCHC (33.0-37.0) g/dL RDW (11.5-14.5) % Plt Count (130-400) K/uL MPV (7.2-11.7) fL Neut % (Auto) (50.0-75.0) % Lymph % (Auto) (20.0-40.0) % [place] % (Auto) (0.0-10.0) % Eos % (Auto) (0.0-4.0) % Baso % (Auto) (0.0-2.0) % Neut # (Auto) (1.8-7.0) K/uL Lymph # (Auto) (1.0-4.3) K/uL [place] # (Auto) (0.0-0.8) K/uL Eos # (Auto) (0.0-0.7) K/uL Baso # (Auto) (0.0-0.2) K/uL Sodium (132-148) mmol/L Potassium (3.6-5.2) mmol/L Chloride (98-107) mmol/L Carbon Dioxide (22-30) mmol/L Anion Gap (10-20) BUN (9-20) mg/dL Creatinine (0.8-1.5) mg/dL Est GFR ( Amer) Est GFR (Non-Af Amer) POC Glucose (mg/dL) 162 H 131 H 113 H (65-110) mg/dL Random Glucose (75-110) mg/dL Hemoglobin A1c (4.2-6.5) % Calcium (8.6-10.4) mg/dl Total Bilirubin (0.2-1.3) mg/dL AST (17-59) U/L ALT (21-72) U/L Alkaline Phosphatase (38-126) U/L Total Protein (6.3-8.3) g/dL Albumin (3.5-5.0) g/dL Globulin (2.2-3.9) gm/dL Albumin/Globulin Ratio (1.0-2.1) 03/30/18 03/30/18 03/29/18 Range/Units 06:25 06:25 21:25 WBC 6.9 (4.8-10.8) K/uL RBC 4.45 (4.40-5.90) Mil/uL Hgb 13.2 (12.0-18.0) g/dL Hct 39.3 (35.0-51.0) % MCV 88.4 (80.0-94.0) fL MCH 29.7 (27.0-31.0) pg MCHC 33.5 (33.0-37.0) g/dL RDW 13.5 (11.5-14.5) % Plt Count 229 (130-400) K/uL MPV 8.0 (7.2-11.7) fL Neut % (Auto) 61.8 (50.0-75.0) % Lymph % (Auto) 24.7 (20.0-40.0) % Ste[place] % (Auto) 8.8 (0.0-10.0) % Eos % (Auto) 4.2 H (0.0-4.0) % Baso % (Auto) 0.5 (0.0-2.0) % Neut # (Auto) 4.3 (1.8-7.0) K/uL Lymph # (Auto) 1.7 (1.0-4.3) K/uL Steuben # (Auto) 0.6 (0.0-0.8) K/uL Eos # (Auto) 0.3 (0.0-0.7) K/uL Baso # (Auto) 0.0 (0.0-0.2) K/uL Sodium 138 (132-148) mmol/L Potassium 4.0 (3.6-5.2) mmol/L Chloride 107 (98-107) mmol/L Carbon Dioxide 27 (22-30) mmol/L Anion Gap 8 L (10-20) BUN 14 (9-20) mg/dL Creatinine 0.7 L (0.8-1.5) mg/dL Est GFR ( Amer) > 60 Est GFR (Non-Af Amer) > 60 POC Glucose (mg/dL) 112 H (65-110) mg/dL Random Glucose 117 H (75-110) mg/dL Hemoglobin A1c (4.2-6.5) % Calcium 8.9 (8.6-10.4) mg/dl Total Bilirubin 0.4 (0.2-1.3) mg/dL AST 22 (17-59) U/L ALT 24 (21-72) U/L Alkaline Phosphatase 107 (38-126) U/L Total Protein 6.8 (6.3-8.3) g/dL Albumin 3.7 (3.5-5.0) g/dL Globulin 3.0 (2.2-3.9) gm/dL Albumin/Globulin Ratio 1.2 (1.0-2.1) 03/29/18 03/29/18 Range/Units 17:55 10:43 WBC (4.8-10.8) K/uL RBC (4.40-5.90) Mil/uL Hgb (12.0-18.0) g/dL Hct (35.0-51.0) % MCV (80.0-94.0) fL MCH (27.0-31.0) pg MCHC (33.0-37.0) g/dL RDW (11.5-14.5) % Plt Count (130-400) K/uL MPV (7.2-11.7) fL Neut % (Auto) (50.0-75.0) % Lymph % (Auto) (20.0-40.0) % Ste[place] % (Auto) (0.0-10.0) % Eos % (Auto) (0.0-4.0) % Baso % (Auto) (0.0-2.0) % Neut # (Auto) (1.8-7.0) K/uL Lymph # (Auto) (1.0-4.3) K/uL Ste[place] # (Auto) (0.0-0.8) K/uL Eos # (Auto) (0.0-0.7) K/uL Baso # (Auto) (0.0-0.2) K/uL Sodium (132-148) mmol/L Potassium (3.6-5.2) mmol/L Chloride (98-107) mmol/L Carbon Dioxide (22-30) mmol/L Anion Gap (10-20) BUN (9-20) mg/dL Creatinine (0.8-1.5) mg/dL Est GFR ( Amer) Est GFR (Non-Af Amer) POC Glucose (mg/dL) 100 (65-110) mg/dL Random Glucose (75-110) mg/dL Hemoglobin A1c 7.2 H (4.2-6.5) % Calcium (8.6-10.4) mg/dl Total Bilirubin (0.2-1.3) mg/dL AST (17-59) U/L ALT (21-72) U/L Alkaline Phosphatase (38-126) U/L Total Protein (6.3-8.3) g/dL Albumin (3.5-5.0) g/dL Globulin (2.2-3.9) gm/dL Albumin/Globulin Ratio (1.0-2.1) Laboratory Results - last 24 hr 03/29/18 03/29/18 03/29/18 10:43 17:55 21:25 WBC RBC Hgb Hct MCV MCH MCHC RDW Plt Count MPV Neut % (Auto) Lymph % (Auto) [place] % (Auto) Eos % (Auto) Baso % (Auto) Neut # (Auto) Lymph # (Auto) [place] # (Auto) Eos # (Auto) Baso # (Auto) Sodium Potassium Chloride Carbon Dioxide Anion Gap BUN Creatinine Est GFR ( Amer) Est GFR (Non-Af Amer) POC Glucose (mg/dL) 100 112 H Random Glucose Hemoglobin A1c 7.2 H Calcium Total Bilirubin AST ALT Alkaline Phosphatase Total Protein Albumin Globulin Albumin/Globulin Ratio 03/30/18 03/30/18 03/30/18 06:25 06:25 07:37 WBC 6.9 RBC 4.45 Hgb 13.2 Hct 39.3 MCV 88.4 MCH 29.7 MCHC 33.5 RDW 13.5 Plt Count 229 MPV 8.0 Neut % (Auto) 61.8 Lymph % (Auto) 24.7 [place] % (Auto) 8.8 Eos % (Auto) 4.2 H Baso % (Auto) 0.5 Neut # (Auto) 4.3 Lymph # (Auto) 1.7 [place] # (Auto) 0.6 Eos # (Auto) 0.3 Baso # (Auto) 0.0 Sodium 138 Potassium 4.0 Chloride 107 Carbon Dioxide 27 Anion Gap 8 L BUN 14 Creatinine 0.7 L Est GFR ( Amer) > 60 Est GFR (Non-Af Amer) > 60 POC Glucose (mg/dL) 113 H Random Glucose 117 H Hemoglobin A1c Calcium 8.9 Total Bilirubin 0.4 AST 22 ALT 24 Alkaline Phosphatase 107 Total Protein 6.8 Albumin 3.7 Globulin 3.0 Albumin/Globulin Ratio 1.2 03/30/18 03/30/18 11:51 16:25 WBC RBC Hgb Hct MCV MCH MCHC RDW Plt Count MPV Neut % (Auto) Lymph % (Auto) [place] % (Auto) Eos % (Auto) Baso % (Auto) Neut # (Auto) Lymph # (Auto) [place] # (Auto) Eos # (Auto) Baso # (Auto) Sodium Potassium Chloride Carbon Dioxide Anion Gap BUN Creatinine Est GFR ( Amer) Est GFR (Non-Af Amer) POC Glucose (mg/dL) 131 H 162 H Random Glucose Hemoglobin A1c Calcium Total Bilirubin AST ALT Alkaline Phosphatase Total Protein Albumin Globulin Albumin/Globulin Ratio Radiology Impressions: Radiology Impressions Chest X-Ray 03/29/18 10:38 IMPRESSION: Stable cardiomegaly. No acute pulmonary disease. No interval pulmonary vascular congestion. Head CT 03/29/18 19:07 IMPRESSION: Stable marginal trace chronic microangiopathy. No interval intracranial hemorrhage, mass effect or cortical edema appreciable. Follow-up MRI available if clinically warranted. Concordant preliminary report from Bridgett, 03/29/2018, 8:12 p.m.. Fingerstick Blood Sugar Results: 131 Critical Care Progress Note - Nutrition Nutrition: Nutrition Category Date Time Status Heart Healthy Diet [DIET] Diets 03/29/18 Breakfast Active
--- NOTE | 2018-03-30 17:30 | CT ---
Date of service: 03/30/2018 PROCEDURE: CT HEAD WITHOUT CONTRAST. HISTORY: Code Stroke COMPARISON: Unenhanced head CT 03/29/2018 7:45 p.m.. TECHNIQUE: Axial computed tomography images were obtained through the head/brain without intravenous contrast. Radiation dose: Total exam DLP = 1198.84 mGy-cm. This CT exam was performed using one or more of the following dose reduction techniques: Automated exposure control, adjustment of the mA and/or kV according to patient size, and/or use of iterative reconstruction technique. FINDINGS: HEMORRHAGE: No intracranial hemorrhage. BRAIN: Minimal chronic microangiopathy again appreciated. Adequate corticomedullary differentiation remains however there is no mass effect or interval cortical pathology appreciable under CT criteria. No suspicious extra-axial collection identified. Midline brain anatomy remains normal appearing. VENTRICLES: Unremarkable. No hydrocephalus. CALVARIUM: Unremarkable. PARANASAL SINUSES: Unremarkable as visualized. No significant inflammatory changes. MASTOID AIR CELLS: Unremarkable as visualized. No inflammatory changes. OTHER FINDINGS: None. IMPRESSION: Trace chronic microangiopathy again identified. Exam otherwise unremarkable and stable overall. Follow-up CT or MRI can be performed as clinically warranted. Findings reported to Dr. Toure's voicemail 03/30/2018 5:15 p.m..
[2018-03-31] MEDS: Latanoprost 2.5 ml Opht Soln OU SCH ×2 (02:08→21:46)
[2018-03-31] MEDS: Sodium Chloride 0.9% 1,000 ML IV SCH (05:36)
[2018-03-31 06:18] LABS: BASO % 0.5 % (0.0-2.0); EOS # 0.3 K/uL (0.0-0.7); EOS % 4.9 % (0.0-4.0); HEMOGLOBIN 13.8 g/dL (12.0-18.0); LYMPH # 1.9 K/uL (1.0-4.3); LYMPH % 28.3 % (20.0-40.0); MEAN CELL VOLUME 88.4 fL (80.0-94.0); MEAN CORPUSCULAR HEMOGLOBIN 30.3 pg (27.0-31.0); MEAN CORPUSCULAR HGB CONC 34.3 g/dL (33.0-37.0); MEAN PLATELET VOLUME 7.9 fL (7.2-11.7); MONO # 0.6 K/uL (0.0-0.8); MONO % 9.2 % (0.0-10.0); NEUT # 3.7 K/uL (1.8-7.0); NEUT % 57.1 % (50.0-75.0); NRBC % 0.1 % (0.0-2.0); RBC 4.57 Mil/uL (4.40-5.90); RED CELL DISTRIBUTION WIDTH 13.6 % (11.5-14.5); WHITE BLOOD COUNT 6.6 K/uL (4.8-10.8)
[2018-03-31 06:37] LABS: ALB/GLOB RATIO 1.2 (1.0-2.1); ALBUMIN 3.9 g/dL (3.5-5.0); ALT/SGPT 17 U/L (21-72); AST/SGOT 21 U/L (17-59); BLOOD UREA NITROGEN 10 mg/dL (9-20); CALCIUM 9.1 mg/dl (8.6-10.4); GFR NON-AFRICAN AMERICAN > 60
--- NOTE | 2018-03-31 08:52 | CP.CCUPN ---
CCU Subjective - Physician Review Subjective (Free Text): 03/31/18 11:11 Critical Care progress note for Dr. Toure. Patient seen and examined at bedside. No acute overnight events reported. Patient states he is feeling fine and reports increased strength in his LUE with his speech having normalized. Patient does report still persistent LLE weakness. Patient denies vision changes, headaches, SOB, chest pain, abdominal pain, N/V, F/C. CCU Objective - Vital Signs / Intake & Output Vital Signs (Last 4 hours): Vital Signs Pulse Resp BP Pulse Ox 03/31/18 05:52 83 14 147/95 H 95 03/31/18 05:00 100 H 11 L 96 Intake and Output (Last 8hrs): Intake & Output 03/30/18 03/31/18 03/31/18 22:59 06:59 14:59 Intake Total 1135 800 Output Total 325 1000 Balance 810 -200 Intake: Intake, IV Amount 800 800 Right Antecubital 800 800 Oral 335 Output: Urine 325 1000 Urine, Voided 325 1000 Other: # Voids Urine, Voided 1 1 # Bowel Movements 0 0 - Physical Exam Head: Positive for: Atraumatic, Normocephalic Extroacular Muscles: Positive for: EOMI Conjunctiva: Positive for: Normal Mouth: Positive for: Moist Mucous Membranes Neck: Positive for: Normal Range of Motion Respiratory/Chest: Positive for: Clear to Auscultation. Negative for: Respiratory Distress, Accessory Muscle Use Cardiovascular: Positive for: Normal S1, S2. Negative for: Murmurs Abdomen: Positive for: Normal Bowel Sounds. Negative for: Tenderness, Distention Upper Extremity: Positive for: Other (LUE 4/5 strength, Full ROM) Lower Extremity: Positive for: Other (LLE 3/5 strength) Neurological: Positive for: GCS=15 Skin: Positive for: Warm, Dry, Normal Color - Medications Active Medications: Active Medications Generic Name Dose Route Start Last Admin Trade Name Freq PRN Reason Stop Dose Admin Aspirin 81 mg 03/30/18 22:00 03/30/18 23:03 Aspirin Chewable PO 81 mg 2200 STEVE Administration Divalproex Sodium 1,000 mg 03/30/18 10:00 03/30/18 17:27 Depakote PO 1,000 mg TID STEVE Administration Sodium Chloride 1,000 mls @ 100 mls/hr 03/29/18 13:30 03/31/18 05:36 Sodium Chloride 0.9% IV 100 mls/hr .Q10H STEVE Administration Latanoprost 0 ml 03/30/18 22:00 03/31/18 02:08 Xalatan Opht OU 2.5 ml HS STEVE Administration Losartan Potassium 100 mg 03/30/18 10:00 03/30/18 09:54 Cozaar PO 100 mg DAILY STEVE Administration Metformin HCl 500 mg 03/30/18 10:00 03/30/18 09:53 Glucophage PO 500 mg DAILY STEVE Administration Pantoprazole Sodium 40 mg 03/30/18 10:00 03/30/18 09:55 Protonix Inj IVP 40 mg DAILY STEVE Administration Pregabalin 75 mg 03/30/18 10:00 03/30/18 17:27 Lyrica PO 75 mg BID STEVE Administration Rosuvastatin Calcium 40 mg 03/30/18 22:00 03/30/18 23:03 Crestor PO 40 mg HS STEVE Administration Tamsulosin HCl 0.4 mg 03/30/18 10:00 03/30/18 09:53 Flomax PO 0.4 mg DAILY STEVE Administration - Patient Studies Lab Studies: Lab Studies 03/31/18 03/31/18 03/31/18 Range/Units 07:08 06:11 06:09 WBC 6.6 (4.8-10.8) K/uL RBC 4.57 (4.40-5.90) Mil/uL Hgb 13.8 (12.0-18.0) g/dL Hct 40.4 (35.0-51.0) % MCV 88.4 (80.0-94.0) fL MCH 30.3 (27.0-31.0) pg MCHC 34.3 (33.0-37.0) g/dL RDW 13.6 (11.5-14.5) % Plt Count 253 (130-400) K/uL MPV 7.9 (7.2-11.7) fL Neut % (Auto) 57.1 (50.0-75.0) % Lymph % (Auto) 28.3 (20.0-40.0) % [place] % (Auto) 9.2 (0.0-10.0) % Eos % (Auto) 4.9 H (0.0-4.0) % Baso % (Auto) 0.5 (0.0-2.0) % Neut # (Auto) 3.7 (1.8-7.0) K/uL Lymph # (Auto) 1.9 (1.0-4.3) K/uL [place] # (Auto) 0.6 (0.0-0.8) K/uL Eos # (Auto) 0.3 (0.0-0.7) K/uL Baso # (Auto) 0.0 (0.0-0.2) K/uL Sodium 139 (132-148) mmol/L Potassium 4.0 (3.6-5.2) mmol/L Chloride 107 (98-107) mmol/L Carbon Dioxide 25 (22-30) mmol/L Anion Gap 11 (10-20) BUN 10 (9-20) mg/dL Creatinine 0.7 L (0.8-1.5) mg/dL Est GFR ( Amer) > 60 Est GFR (Non-Af Amer) > 60 POC Glucose (mg/dL) 173 H (65-110) mg/dL Random Glucose 174 H D (75-110) mg/dL Hemoglobin A1c (4.2-6.5) % Calcium 9.1 (8.6-10.4) mg/dl Phosphorus 2.9 (2.5-4.5) mg/dL Magnesium 1.9 (1.6-2.3) mg/dL Total Bilirubin 0.3 (0.2-1.3) mg/dL AST 21 (17-59) U/L ALT 17 L D (21-72) U/L Alkaline Phosphatase 155 H D (38-126) U/L Total Protein 7.2 (6.3-8.3) g/dL Albumin 3.9 (3.5-5.0) g/dL Globulin 3.3 (2.2-3.9) gm/dL Albumin/Globulin Ratio 1.2 (1.0-2.1) 03/30/18 03/30/18 03/30/18 Range/Units 20:29 16:25 11:51 WBC (4.8-10.8) K/uL RBC (4.40-5.90) Mil/uL Hgb (12.0-18.0) g/dL Hct (35.0-51.0) % MCV (80.0-94.0) fL MCH (27.0-31.0) pg MCHC (33.0-37.0) g/dL RDW (11.5-14.5) % Plt Count (130-400) K/uL MPV (7.2-11.7) fL Neut % (Auto) (50.0-75.0) % Lymph % (Auto) (20.0-40.0) % [place] % (Auto) (0.0-10.0) % Eos % (Auto) (0.0-4.0) % Baso % (Auto) (0.0-2.0) % Neut # (Auto) (1.8-7.0) K/uL Lymph # (Auto) (1.0-4.3) K/uL [place] # (Auto) (0.0-0.8) K/uL Eos # (Auto) (0.0-0.7) K/uL Baso # (Auto) (0.0-0.2) K/uL Sodium (132-148) mmol/L Potassium (3.6-5.2) mmol/L Chloride (98-107) mmol/L Carbon Dioxide (22-30) mmol/L Anion Gap (10-20) BUN (9-20) mg/dL Creatinine (0.8-1.5) mg/dL Est GFR ( Amer) Est GFR (Non-Af Amer) POC Glucose (mg/dL) 185 H 162 H 131 H (65-110) mg/dL Random Glucose (75-110) mg/dL Hemoglobin A1c (4.2-6.5) % Calcium (8.6-10.4) mg/dl Phosphorus (2.5-4.5) mg/dL Magnesium (1.6-2.3) mg/dL Total Bilirubin (0.2-1.3) mg/dL AST (17-59) U/L ALT (21-72) U/L Alkaline Phosphatase (38-126) U/L Total Protein (6.3-8.3) g/dL Albumin (3.5-5.0) g/dL Globulin (2.2-3.9) gm/dL Albumin/Globulin Ratio (1.0-2.1) 03/29/18 Range/Units 10:43 WBC (4.8-10.8) K/uL RBC (4.40-5.90) Mil/uL Hgb (12.0-18.0) g/dL Hct (35.0-51.0) % MCV (80.0-94.0) fL MCH (27.0-31.0) pg MCHC (33.0-37.0) g/dL RDW (11.5-14.5) % Plt Count (130-400) K/uL MPV (7.2-11.7) fL Neut % (Auto) (50.0-75.0) % Lymph % (Auto) (20.0-40.0) % [place] % (Auto) (0.0-10.0) % Eos % (Auto) (0.0-4.0) % Baso % (Auto) (0.0-2.0) % Neut # (Auto) (1.8-7.0) K/uL Lymph # (Auto) (1.0-4.3) K/uL [place] # (Auto) (0.0-0.8) K/uL Eos # (Auto) (0.0-0.7) K/uL Baso # (Auto) (0.0-0.2) K/uL Sodium (132-148) mmol/L Potassium (3.6-5.2) mmol/L Chloride (98-107) mmol/L Carbon Dioxide (22-30) mmol/L Anion Gap (10-20) BUN (9-20) mg/dL Creatinine (0.8-1.5) mg/dL Est GFR ( Amer) Est GFR (Non-Af Amer) POC Glucose (mg/dL) (65-110) mg/dL Random Glucose (75-110) mg/dL Hemoglobin A1c 7.2 H (4.2-6.5) % Calcium (8.6-10.4) mg/dl Phosphorus (2.5-4.5) mg/dL Magnesium (1.6-2.3) mg/dL Total Bilirubin (0.2-1.3) mg/dL AST (17-59) U/L ALT (21-72) U/L Alkaline Phosphatase (38-126) U/L Total Protein (6.3-8.3) g/dL Albumin (3.5-5.0) g/dL Globulin (2.2-3.9) gm/dL Albumin/Globulin Ratio (1.0-2.1) Laboratory Results - last 24 hr 03/29/18 03/30/18 03/30/18 10:43 11:51 16:25 WBC RBC Hgb Hct MCV MCH MCHC RDW Plt Count MPV Neut % (Auto) Lymph % (Auto) [place] % (Auto) Eos % (Auto) Baso % (Auto) Neut # (Auto) Lymph # (Auto) [place] # (Auto) Eos # (Auto) Baso # (Auto) Sodium Potassium Chloride Carbon Dioxide Anion Gap BUN Creatinine Est GFR ( Amer) Est GFR (Non-Af Amer) POC Glucose (mg/dL) 131 H 162 H Random Glucose Hemoglobin A1c 7.2 H Calcium Phosphorus Magnesium Total Bilirubin AST ALT Alkaline Phosphatase Total Protein Albumin Globulin Albumin/Globulin Ratio 03/30/18 03/31/18 03/31/18 20:29 06:09 06:11 WBC 6.6 RBC 4.57 Hgb 13.8 Hct 40.4 MCV 88.4 MCH 30.3 MCHC 34.3 RDW 13.6 Plt Count 253 MPV 7.9 Neut % (Auto) 57.1 Lymph % (Auto) 28.3 [place] % (Auto) 9.2 Eos % (Auto) 4.9 H Baso % (Auto) 0.5 Neut # (Auto) 3.7 Lymph # (Auto) 1.9 [place] # (Auto) 0.6 Eos # (Auto) 0.3 Baso # (Auto) 0.0 Sodium 139 Potassium 4.0 Chloride 107 Carbon Dioxide 25 Anion Gap 11 BUN 10 Creatinine 0.7 L Est GFR ( Amer) > 60 Est GFR (Non-Af Amer) > 60 POC Glucose (mg/dL) 185 H Random Glucose 174 H D Hemoglobin A1c Calcium 9.1 Phosphorus 2.9 Magnesium 1.9 Total Bilirubin 0.3 AST 21 ALT 17 L D Alkaline Phosphatase 155 H D Total Protein 7.2 Albumin 3.9 Globulin 3.3 Albumin/Globulin Ratio 1.2 03/31/18 07:08 WBC RBC Hgb Hct MCV MCH MCHC RDW Plt Count MPV Neut % (Auto) Lymph % (Auto) [place] % (Auto) Eos % (Auto) Baso % (Auto) Neut # (Auto) Lymph # (Auto) [place] # (Auto) Eos # (Auto) Baso # (Auto) Sodium Potassium Chloride Carbon Dioxide Anion Gap BUN Creatinine Est GFR ( Amer) Est GFR (Non-Af Amer) POC Glucose (mg/dL) 173 H Random Glucose Hemoglobin A1c Calcium Phosphorus Magnesium Total Bilirubin AST ALT Alkaline Phosphatase Total Protein Albumin Globulin Albumin/Globulin Ratio Radiology Impressions: Radiology Impressions Head CT 03/29/18 19:07 IMPRESSION: Stable marginal trace chronic microangiopathy. No interval intracranial hemorrhage, mass effect or cortical edema appreciable. Follow-up MRI available if clinically warranted. Concordant preliminary report from [place], 03/29/2018, 8:[address] 03/30/18 16:00 IMPRESSION: Trace chronic microangiopathy again identified. Exam otherwise unremarkable and stable overall. Follow-up CT or MRI can be performed as clinically warranted. Findings reported to Dr. Toure's voicemail 03/30/2018 5:15 p.m.. Fingerstick Blood Sugar Results: 185 Review of Systems - Constitutional Constitutional: absent: Chills, Sweats, Weakness - EENT Eyes: UNREMARKABLE Ears: UNREMARKABLE Nose/Mouth/Throat: UNREMARKABLE - Respiratory Respiratory: UNREMARKABLE - Gastrointestinal Gastrointestinal: UNREMARKABLE - Genitourinary Genitourinary: UNREMARKABLE - Musculoskeletal Musculoskeletal: UNREMARKABLE - Integumentary Integumentary: UNREMARKABLE - Neurological Additional comments: LLE weakness 3/5 strength LUE weakness 4/5 strength - Psychiatric Psychiatric: UNREMARKABLE - Endocrine Endocrine: UNREMARKABLE - Hematologic/Lymphatic Hematologic: UNREMARKABLE Critical Care Progress Note - Extremities/Vascular Does the Patient have a Central Venous Catheter?: No Does the Patient need a Central Venous Catheter?: No Does the Patient have a Head Catheter?: No Does the Patient need a Heda Catheter?: No - Prophylaxis GI Prophylaxis GI: PPI - Prophylaxis DVT Prophylaxis DVT: Not Indicated - Nutrition Nutrition: Nutrition Category Date Time Status Heart Healthy Diet [DIET] Diets 03/29/18 Breakfast Active Assessment/Plan - Assessment and Plan (Free Text) Assessment: 58 M w/ PMhx of bipolar disease, HTN, HLD, history of TIA, currently day 2 s/p TPA for left hemipaligia & slurred speech, currently improving Plan: Neuro - s/p tPA on 03/29 for ischemic stroke/TIA - A&O X3 - CT head (03/30): Trace chronic microangiopathy again identified. Exam otherwise unremarkable and stable overall. - CTA (03/29): 1. 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 CT angiogram of the brain is otherwise unchanged without additional significant stenosis or occlusion. 2. No significant stenosis bilateral common or internal carotid arteries in the neck. Patent bilateral vertebral arteries in the neck. - c/w ASA 81mg PO daily, crestor 40mg PO daily - stable for downgrade of ICU - hx of bipolar disease, c/w depakote 1000 mg PO TID Cardiac - Hypertension, c/w cozaar 100 mg daily - F/u Echo - F/u cardiology recs for possible cardiac origin of stroke - continue Crestor 10mg, ASA 81mg Pulm - CXR 03/29: no active disease, stable cardiomegaly GI - heart healthy diet - tolerating diet well Renal - BUN/Cr 10/0.7 - c/w cozaar 100 mg Po daily Endo - hx of diabetes - c/w metformin 500 mg PO daily Heme - H/H 13.8/40.4 ID - currently afebrile PPx - Protonix for GI ppx - DVT ppx: SCDs, Heparin contraindicated as patient is active
[2018-03-31] MEDS ORDERED: Pantoprazole 40 mg EC Tab PO SCH (10:00)
[2018-03-31] MEDS: Divalproex 500 mg DR Tab PO SCH ×3 (10:29→18:34)
--- NOTE | 2018-03-31 14:38 | CARD ---
APPROVED REPORT Date of service: 03/29/2018 EKG Measurement Heart [id number] <Conclusion> Sinus rhythm with 1st degree AV block Otherwise normal ECG
--- NOTE | 2018-03-31 15:01 | CP.PCM.PN ---
Subjective - Date & Time of Evaluation Date of Evaluation: 03/31/18 Time of Evaluation: 12:15 - Subjective Subjective: clinically same Objective - Vital Signs/Intake and Output Vital Signs (last 24 hours): Temp Pulse Resp BP Pulse Ox 97.4 F L 94 H 18 138/90 96 03/31/18 04:00 03/31/18 11:00 03/31/18 11:00 03/31/18 08:52 03/31/18 10:00 Intake and Output: 03/31/18 03/31/18 06:59 18:59 Intake Total 1410 1640 Output Total 1200 950 Balance 210 690 - Medications Medications: Current Medications Aspirin (Aspirin Chewable) 81 mg PO 2200 [facility] Last Admin: 03/31/18 10:28 Dose: 81 mg Divalproex Sodium (Depakote Dr) 1,000 mg PO TID [facility] Last Admin: 03/31/18 10:29 Dose: 1,000 mg Latanoprost (Xalatan Opht) 0 ml OU HS [facility] Last Admin: 03/31/18 02:08 Dose: 2.5 ml Losartan Potassium (Cozaar) 100 mg PO DAILY [facility] Last Admin: 03/31/18 10:28 Dose: 100 mg Metformin HCl (Glucophage) 500 mg PO DAILY [facility] Last Admin: 03/31/18 10:28 Dose: 500 mg Pantoprazole Sodium (Protonix Ec Tab) 40 mg PO DAILY [facility] Last Admin: 03/31/18 10:52 Dose: Not Given Pregabalin (Lyrica) 75 mg PO BID [facility] Last Admin: 03/31/18 10:30 Dose: 75 mg Rosuvastatin Calcium (Crestor) 40 mg PO HS [facility] Last Admin: 03/30/18 23:03 Dose: 40 mg Tamsulosin HCl (Flomax) 0.4 mg PO DAILY [facility] Last Admin: 03/31/18 10:29 Dose: 0.4 mg - Labs Labs: 03/31/18 06:11 03/31/18 06:09 PT 11.5 SECONDS (9.7-12.2) 03/29/18 10:43 INR 1.1 03/29/18 10:43 APTT 41 SECONDS (21-34) H 03/29/18 10:43 - Constitutional Appears: Well - Head Exam Head Exam: ATRAUMATIC, NORMAL INSPECTION, NORMOCEPHALIC - Eye Exam Eye Exam: EOMI, Normal appearance, PERRL Pupil Exam: NORMAL ACCOMODATION, PERRL - ENT Exam ENT Exam: Mucous Membranes Moist, Normal Exam - Neck Exam Neck Exam: Full ROM, Normal Inspection. absent: Lymphadenopathy - Respiratory Exam Respiratory Exam: Decreased Breath Sounds - Cardiovascular Exam Cardiovascular Exam: REGULAR RHYTHM, +S1, +S2 - GI/Abdominal Exam GI & Abdominal Exam: Soft, Diminished Bowel Sounds - Rectal Exam Rectal Exam: Deferred
--- NOTE | 2018-03-31 16:19 | CP.PCM.PN ---
Subjective - Date & Time of Evaluation Date of Evaluation: 03/31/18 Time of Evaluation: 16:16 - Subjective Subjective: Neuro Follow-Up Note: Mr. Dumont was evaluated this afternoon in the ICU. He was downgraded to telemetry this morning. Overall he states that he is doing well. He is anxious to have all tests done. He denies any new complaints. No h/a, dizziness, visual changes, chest pain, palpitations, sob, cough, abd pain, n/v/d. Chart re viewed. Objective - Vital Signs/Intake and Output Vital Signs (last 24 hours): Temp Pulse Resp BP Pulse Ox 97.4 F L 94 H 18 138/90 96 03/31/18 04:00 03/31/18 11:00 03/31/18 11:00 03/31/18 08:52 03/31/18 10:00 Intake and Output: 03/31/18 03/31/18 06:59 18:59 Intake Total 1410 1640 Output Total 1200 950 Balance 210 690 - Medications Medications: Current Medications Aspirin (Aspirin Chewable) 81 mg PO 2200 [facility] Last Admin: 03/31/18 10:28 Dose: 81 mg Divalproex Sodium (Depakote Dr) 1,000 mg PO TID [facility] Last Admin: 03/31/18 10:29 Dose: 1,000 mg Latanoprost (Xalatan Opht) 0 ml OU HS [facility] Last Admin: 03/31/18 02:08 Dose: 2.5 ml Losartan Potassium (Cozaar) 100 mg PO DAILY [facility] Last Admin: 03/31/18 10:28 Dose: 100 mg Metformin HCl (Glucophage) 500 mg PO DAILY [facility] Last Admin: 03/31/18 10:28 Dose: 500 mg Pantoprazole Sodium (Protonix Ec Tab) 40 mg PO DAILY [facility] Last Admin: 03/31/18 10:52 Dose: Not Given Pregabalin (Lyrica) 75 mg PO BID [facility] Last Admin: 03/31/18 10:30 Dose: 75 mg Rosuvastatin Calcium (Crestor) 40 mg PO HS [facility] Last Admin: 03/30/18 23:03 Dose: 40 mg Tamsulosin HCl (Flomax) 0.4 mg PO DAILY [facility] Last Admin: 03/31/18 10:29 Dose: 0.4 mg - Labs Labs: 03/31/18 06:11 03/31/18 06:09 PT 11.5 SECONDS (9.7-12.2) 03/29/18 10:43 INR 1.1 03/29/18 10:43 APTT 41 SECONDS (21-34) H 03/29/18 10:43 - Constitutional Appears: Well, Non-toxic, No Acute Distress - Head Exam Head Exam: ATRAUMATIC, NORMAL INSPECTION, NORMOCEPHALIC - Eye Exam Eye Exam: EOMI, Normal appearance, PERRL Pupil Exam: NORMAL ACCOMODATION, PERRL - ENT Exam ENT Exam: Mucous Membranes Moist - Neck Exam Neck Exam: Full ROM, Normal Inspection - Respiratory Exam Respiratory Exam: NORMAL BREATHING PATTERN - Cardiovascular Exam Cardiovascular Exam: REGULAR RHYTHM - GI/Abdominal Exam Additional comments: obese - Extremities Exam Extremities Exam: absent: Calf Tenderness, Pedal Edema Additional comments: Able to move all extremities, however, he does have some weakness to the left arm and left leg (not a new finding; this is residual from a previous stroke per the pt). FROM to right sided extremities. 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 FROM to right sided extremities without motor deficits. No sensory deficits. No tremors. Toes down going. Reflexes brisk b/l Gait not assessed; PT notes reviewed. - Psychiatric Exam Psychiatric exam: Normal Affect, Normal Mood Additional comments: periods of anxiety---h/o bipolar - Skin Skin Exam: Normal Color Assessment and Plan (1) Vertebral artery stenosis Assessment & Plan: Imaging reviewed: -CT Head (03/30/18): Trace chronic microangiopathy again identified. Exam othe rwise unremarkable and stable overall. Follow-up CT or MRI can be performed as clinically warranted. -Repeat CT Head (03/29/18): Stable marginal trace chronic microangiopathy. No interval intracranial hemorrhage, mass effect or cortical edema appreciable. Follow-up MRI available if clinically warranted. -CT Head (03/29/18): Stable minimal age related neuro degenerative change. No acute intracranial findings as compared prior head CT 04/27/2017. Follow-up CT or MRI are available as clinically warranted. -MRI Brain ordered, however, unable to be done 2/2 pt's size. -Neuro IR consulted--pt was to have cerebral angiogram with stenting done on 04/04/18, as outpatient, however, it will be done tomorrow. -Discussed with Dr. Ring; okay to start Plavix today. Dr. Ring also aware that MRI could not be done and that we are ordering a repeat CT Head tonight (he is in agreement with this plan). -Repeat non-contrast Head CT to re-evaluate for any intracranial findings or hemorrhagic conversion to be done tonight prior to angio. -Cardiology on case; pt is for a [facility] on Saturday with Dr. Tracey. -Continue PT/OT/ST -Notify neuro team of any acute changes in pt's condition. Case discussed with Dr. Grant Status: Acute NIHSS Stroke Scale - Date/Time Evaluation Performed Date Performed: 03/30/18 Time Performed: 10:20 - How Severe is the Stroke Level of Consciousness: 0=Alert LOC to Questions: 0=Both comments correct LOC to commands: 0=Obeys both correctly Best Gaze: 0=Normal Visual: 0=No visual loss Facial: 1=Minor asymmetry Motor Arm - Left: 1=Drift noted before 10 sec Motor Arm - Right: 0=No drift Motor Leg - Left: 1=Drift before 5 sec Motor Leg - Right: 0=No drift Limb Ataxia: 0=Absent Sensory: 0=Normal Best Language: 0=No aphasia Dysarthia: 0=Normal articulation Extinction & Inattention (Neglect): 0=Normal, no object Score: 3
--- NOTE | 2018-03-31 18:15 | CT ---
Date of service: 03/31/2018 PROCEDURE: CT HEAD WITHOUT CONTRAST. HISTORY: r/o hemorrhagic conversion prior to cerebral angio COMPARISON: Noncontrast head CT performed 03/30/18 TECHNIQUE: Axial computed tomography images were obtained through the head/brain without intravenous contrast. Radiation dose: Total exam DLP = 1179.83 mGy-cm. This CT exam was performed using one or more of the following dose reduction techniques: Automated exposure control, adjustment of the mA and/or kV according to patient size, and/or use of iterative reconstruction technique. FINDINGS: HEMORRHAGE: No intracranial hemorrhage. BRAIN: No mass effect or edema. Intracranial atherosclerosis. Mild scattered white matter hypodensities, which are nonspecific, but often seen with chronic microvascular ischemic disease. Please note that MRI with diffusion imaging is more sensitive in the detection of acute ischemic event. VENTRICLES: No hydrocephalus. CALVARIUM: Unremarkable. PARANASAL SINUSES: Unremarkable as visualized. No significant inflammatory changes. MASTOID AIR CELLS: Unremarkable as visualized. No inflammatory changes. OTHER FINDINGS: None. IMPRESSION: Mild chronic appearing microangiopathy.
[2018-03-31] MEDS ORDERED: SODIUM CHLORIDE IV SCH (20:45)
[2018-03-31] MEDS ORDERED: HEPARIN SODIUM IV SCH (20:45)
[2018-03-31] MEDS ORDERED: [UNRECOGNIZED DRUG - OTHER] IV SCH (20:45)
[2018-04-01 06:16] LABS: BASO % 0.6 % (0.0-2.0); EOS # 0.3 K/uL (0.0-0.7); EOS % 4.8 % (0.0-4.0); HEMOGLOBIN 13.4 g/dL (12.0-18.0); LYMPH # 1.4 K/uL (1.0-4.3); LYMPH % 19.7 % (20.0-40.0); MEAN CELL VOLUME 87.8 fL (80.0-94.0); MEAN CORPUSCULAR HEMOGLOBIN 30.2 pg (27.0-31.0); MEAN CORPUSCULAR HGB CONC 34.4 g/dL (33.0-37.0); MEAN PLATELET VOLUME 7.7 fL (7.2-11.7); MONO # 0.7 K/uL (0.0-0.8); MONO % 9.7 % (0.0-10.0); NEUT # 4.7 K/uL (1.8-7.0); NEUT % 65.2 % (50.0-75.0); RBC 4.45 Mil/uL (4.40-5.90); RED CELL DISTRIBUTION WIDTH 13.8 % (11.5-14.5); WHITE BLOOD COUNT 7.2 K/uL (4.8-10.8)
[2018-04-01 06:39] LABS: ALB/GLOB RATIO 1.2 (1.0-2.1); ALBUMIN 3.8 g/dL (3.5-5.0); ALT/SGPT 21 U/L (21-72); AST/SGOT 25 U/L (17-59); BLOOD UREA NITROGEN 12 mg/dL (9-20); CALCIUM 9.3 mg/dl (8.6-10.4); GFR NON-AFRICAN AMERICAN > 60
[2018-04-01] MEDS ORDERED: Lidocaine 2% MPF (5 ml) Inj ONE ×2 (07:33→08:48)
[2018-04-01] MEDS ORDERED: Iohexol 350mg/ml 100 ML ONE (09:14)
--- NOTE | 2018-04-01 09:28 | PCM.SURG1 ---
Surgeon's Initial Post Op Note - Surgeon's Notes Surgeon: Dr. Ring Production Department Supervisor: Adelso Godl Anesthesia Administered By: Dr. Ring Pre-Operative Diagnosis: Ischemic stroke with high grade vertebral artery stenosis Operative Findings: Moderate Stenosis of the left vertebral artery Post-Operative Diagnosis: Moderate Stenosis of the left Vertebral artery Operation Performed: Diagnostic Cerebral Angiogram Specimen/Specimens Removed: None Estimated Blood Loss: EBL {In ML}: 10 Blood Products Given: N/A Drains Used: No Drains Post-Op Condition: Good Date of Surgery/Procedure: 04/01/18 Time of Surgery/Procedure: 09:28
[2018-04-01] MEDS: Divalproex 500 mg DR Tab PO SCH ×3 (10:15→17:23)
[2018-04-01] MEDS: Sodium Chloride 0.9% 500 ML IV SCH ×2 (10:18→16:10)
--- NOTE | 2018-04-01 10:40 | CP.PCM.PN ---
Subjective - Date & Time of Evaluation Date of Evaluation: 04/01/18 Time of Evaluation: 10:35 - Subjective Subjective: Neuro Follow-Up Note: Mr. Duomnt was evaluated this morning in the ICU with family at bedside. He was downgraded to telemetry yesterday. He was evaluated this morning after the diagnostic cerebral angio with Dr. Ring. Overall he states that he is doing well. He admits to a mild h/a (throbbing in nature; 4/10) that started after the angio. He denies any other complaints; no dizziness, visual changes, chest pain, palpitations, sob, cough, abd pain, n/v/d. Chart reviewed. Objective - Vital Signs/Intake and Output Vital Signs (last 24 hours): Temp Pulse Resp BP Pulse Ox 98 F 82 18 132/58 L 98 04/01/18 10:21 04/01/18 05:00 04/01/18 05:00 04/01/18 05:00 04/01/18 05:00 Intake and Output: 04/01/18 04/01/18 06:59 18:59 Intake Total 0 Balance 0 - Medications Medications: Current Medications Acetaminophen (Tylenol 325mg Tab) 650 mg PO Q6 PRN PRN Reason: Headache Last Admin: 04/01/18 10:21 Dose: 650 mg Aspirin (Aspirin Chewable) 81 mg PO 2200 [facility] Last Admin: 03/31/18 21:45 Dose: 81 mg Clopidogrel Bisulfate (Plavix) 75 mg PO DAILY [facility] Last Admin: 04/01/18 10:15 Dose: 75 mg Divalproex Sodium (Depakote Dr) 1,000 mg PO TID [facility] Last Admin: 04/01/18 10:15 Dose: 1,000 mg Famotidine (Pepcid) 20 mg PO BID [facility] Last Admin: 04/01/18 10:15 Dose: 20 mg Sodium Chloride (Sodium Chloride 0.9%) 500 mls @ 75 mls/hr IV .Q6H40M [facility] Last Admin: 04/01/18 10:18 Dose: 75 mls/hr Latanoprost (Xalatan Opht) 0 ml OU HS [facility] Last Admin: 03/31/18 21:46 Dose: 2.5 ml Losartan Potassium (Cozaar) 100 mg PO DAILY [facility] Last Admin: 04/01/18 10:15 Dose: 100 mg Metformin HCl (Glucophage) 500 mg PO DAILY [facility] Last Admin: 04/01/18 10:03 Dose: Not Given Pregabalin (Lyrica) 75 mg PO BID [facility] Last Admin: 04/01/18 10:31 Dose: 75 mg Rosuvastatin Calcium (Crestor) 40 mg PO HS [facility] Last Admin: 03/31/18 21:46 Dose: 40 mg Tamsulosin HCl (Flomax) 0.4 mg PO DAILY [facility] Last Admin: 04/01/18 10:15 Dose: 0.4 mg - Labs Labs: 04/01/18 06:10 04/01/18 06:10 PT 11.5 SECONDS (9.7-12.2) 03/29/18 10:43 INR 1.1 03/29/18 10:43 APTT 41 SECONDS (21-34) H 03/29/18 10:43 - Constitutional Appears: Well, Non-toxic, No Acute Distress - Head Exam Head Exam: ATRAUMATIC, NORMAL INSPECTION, NORMOCEPHALIC - Eye Exam Eye Exam: EOMI, Normal appearance, PERRL Pupil Exam: NORMAL ACCOMODATION, PERRL - ENT Exam ENT Exam: Mucous Membranes Moist, Normal Exam - Neck Exam Neck Exam: Full ROM, Normal Inspection - Respiratory Exam Respiratory Exam: NORMAL BREATHING PATTERN - Cardiovascular Exam Cardiovascular Exam: REGULAR RHYTHM - GI/Abdominal Exam GI & Abdominal Exam: Soft Additional comments: obese - Extremities Exam Extremities Exam: absent: Calf Tenderness, Full ROM, Pedal Edema Additional comments: Able to move all extremities, however, he does have some weakness to the left arm and left leg (not a new finding; this is residual from a previous stroke per the pt). FROM to right sided extremities. - Neurological Exam Neurological Exam: Alert, Awake, CN II-XII Intact, Oriented x3, Reflexes Normal Neuro motor strength exam: Left Upper Extremity: 4, Right Upper Extremity: 5, Left Lower Extremity: 4, Right Lower Extremity: 5 Additional comments: AAOx3 Follows all commands Speech clear and fluid There is a slight facial asymmetry (left sided facial droop)--not new finding per pt, this is residual from previous stroke Able to move all extremities, however, he does have some weakness to the LUE and LLE (not a new finding; this is residual from a previous stroke per the pt). FROM to right sided extremities without motor deficits. No sensory deficits. No tremors. Toes down going. Reflexes brisk b/l Gait not assessed; PT notes reviewed. - Psychiatric Exam Psychiatric exam: Normal Affect, Normal Mood - Skin Skin Exam: Normal Color Assessment and Plan (1) Vertebral artery stenosis Assessment & Plan: Imaging reviewed: -CT Head (03/31/18): Mild chronic appearing microangiopathy. -CT Head (03/30/18): Trace chronic microangiopathy again identified. Exam otherwise unremarkable and stable overall. Follow-up CT or MRI can be performed as clinically warranted. -Repeat CT Head (03/29/18): Stable marginal trace chronic microangiopathy. No interval intracranial hemorrhage, mass effect or cortical edema appreciable. Follow-up MRI available if clinically warranted. -CT Head (03/29/18): Stable minimal age related neuro degenerative change. No acute intracranial findings as compared prior head CT 04/27/2017. Follow-up CT or MRI are available as clinically warranted. -MRI Brain ordered, however, unable to be done 2/2 pt's size. -Neuro IR on case--pt is status post diagnostic cerebral angio this morning with Dr. Ring--findings: Moderate Stenosis of the left Vertebral artery -Cardiology on case; pt is for a SALVADOR tomorrow with Dr. Tracey. -Since the pt has been on ASA and Plavix at home (he admits to being compliance) and is still having recurrent strokes, we will load him with Plavix 300 mg (75 mg given this morning; 225 mg po stat dose added to orders for today); we will also add Cilostazol 100 mg PO BID to his regimen; we will check a PRU in the morning to determine whether or not he has resistance to the Plavix. -Continue PT/OT/ST -Notify neuro team of any acute changes in pt's condition. Case discussed with Dr. Grant Status: Acute NIHSS Stroke Scale - Date/Time Evaluation Performed Date Performed: 04/01/18 Time Performed: 10:42 - How Severe is the Stroke Level of Consciousness: 0=Alert LOC to Questions: 0=Both comments correct LOC to commands: 0=Obeys both correctly Best Gaze: 0=Normal Visual: 0=No visual loss Facial: 1=Minor asymmetry Motor Arm - Left: 1=Drift noted before 10 sec Motor Arm - Right: 0=No drift Motor Leg - Left: 1=Drift before 5 sec Motor Leg - Right: 0=No drift Limb Ataxia: 0=Absent Sensory: 0=Normal Best Language: 0=No aphasia Dysarthia: 0=Normal articulation Extinction & Inattention (Neglect): 0=Normal, no object Score: 3
--- NOTE | 2018-04-01 12:32 | CP.PCM.PN ---
Subjective - Date & Time of Evaluation Date of Evaluation: 04/01/18 Time of Evaluation: 12:00 - Subjective Subjective: clinically same Objective - Vital Signs/Intake and Output Vital Signs (last 24 hours): Temp Pulse Resp BP Pulse Ox 97.4 F L 83 19 115/88 98 04/01/18 12:00 04/01/18 12:00 04/01/18 12:00 04/01/18 12:00 04/01/18 12:00 Intake and Output: 04/01/18 04/01/18 06:59 18:59 Intake Total 0 Balance 0 - Medications Medications: Current Medications Acetaminophen (Tylenol 325mg Tab) 650 mg PO Q6 PRN PRN Reason: Headache Last Admin: 04/01/18 10:21 Dose: 650 mg Aspirin (Aspirin Chewable) 81 mg PO 2200 [facility] Last Admin: 03/31/18 21:45 Dose: 81 mg Cilostazol (Pletal) 100 mg PO BID [facility] Divalproex Sodium (Depakote Dr) 1,000 mg PO TID [facility] Last Admin: 04/01/18 10:15 Dose: 1,000 mg Famotidine (Pepcid) 20 mg PO BID [facility] Last Admin: 04/01/18 10:15 Dose: 20 mg Sodium Chloride (Sodium Chloride 0.9%) 500 mls @ 75 mls/hr IV .Q6H40M [facility] Last Admin: 04/01/18 10:18 Dose: 75 mls/hr Latanoprost (Xalatan Opht) 0 ml OU HS [facility] Last Admin: 03/31/18 21:46 Dose: 2.5 ml Losartan Potassium (Cozaar) 100 mg PO DAILY [facility] Last Admin: 04/01/18 10:15 Dose: 100 mg Metformin HCl (Glucophage) 500 mg PO DAILY [facility] Last Admin: 04/01/18 10:03 Dose: Not Given Pregabalin (Lyrica) 75 mg PO BID [facility] Last Admin: 04/01/18 10:31 Dose: 75 mg Rosuvastatin Calcium (Crestor) 40 mg PO HS [facility] Last Admin: 03/31/18 21:46 Dose: 40 mg Tamsulosin HCl (Flomax) 0.4 mg PO DAILY [facility] Last Admin: 04/01/18 10:15 Dose: 0.4 mg - Labs Labs: 04/01/18 06:10 04/01/18 06:10 PT 11.5 SECONDS (9.7-12.2) 03/29/18 10:43 INR 1.1 03/29/18 10:43 APTT 41 SECONDS (21-34) H 03/29/18 10:43
[2018-04-01] MEDS: Cilostazol 100 mg Tab UD PO SCH (17:23)
--- NOTE | 2018-04-01 19:51 | CP.PCM.CON ---
History of Present Illness - History of Present Illness History of Present Illness: Gilbert Bella PGY1 Cardio consult note for Dr Tracey Pt is a 58 yo male with a PMH of stroke in August and December of 2017 presented to the ED via EMS with complaining of left-sided weakness. Pt experienced slurred speech, left facial droop, left arm, and left leg weakness before presenting to the ED. Past Patient History - Infectious Disease Hx of Infectious Diseases: None - Past Medical History & Family History Past Medical History?: Yes - Past Social History Smoking Status: Never Smoked - CARDIAC Hx Hypercholesterolemia: Yes Hx Hypertension: Yes - PULMONARY Hx Respiratory Disorders: No - NEUROLOGICAL HX Cerebrovascular Accident: Yes (x2) - HEENT Hx HEENT Problems: Yes Hx Cataracts: Yes Hx Glaucoma: Yes - RENAL Hx Chronic Kidney Disease: No - ENDOCRINE/METABOLIC Hx Endocrine Disorders: Yes Hx Diabetes Mellitus Type 2: Yes - HEMATOLOGICAL/ONCOLOGICAL Hx Blood Disorders: No - INTEGUMENTARY Hx Dermatological Problems: No - MUSCULOSKELETAL/RHEUMATOLOGICAL Hx Musculoskeletal Disorders: Yes Hx Falls: Yes (from effects of TIA) - GASTROINTESTINAL Hx Gastrointestinal Disorders: No - GENITOURINARY/GYNECOLOGICAL Hx Genitourinary Disorders: Yes Hx Prostate Problems: Yes - PSYCHIATRIC Hx Bipolar Disorder: Yes Hx Substance Use: Yes (cocaine clean x 3 years) - SURGICAL HISTORY Hx Appendectomy: Yes - ANESTHESIA Hx Anesthesia: Yes Hx Anesthesia Reactions: No Hx Malignant Hyperthermia: No Meds Allergies/Adverse Reactions: Allergies Allergy/AdvReac Type Severity Reaction Status Date / Time Penicillins Allergy SHORTNESS Verified 04/09/17 12:29 OF BREATH - Medications Medications: Current Medications Acetaminophen (Tylenol 325mg Tab) 650 mg PO Q6 PRN PRN Reason: Headache Last Admin: 04/01/18 10:21 Dose: 650 mg Aspirin (Aspirin Chewable) 81 mg PO 2200 [facility] Last Admin: 03/31/18 21:45 Dose: 81 mg Cilostazol (Pletal) 100 mg PO BID [facility] Last Admin: 04/01/18 17:23 Dose: 100 mg Divalproex Sodium (Depakote Dr) 1,000 mg PO TID [facility] Last Admin: 04/01/18 17:23 Dose: 1,000 mg Famotidine (Pepcid) 20 mg PO BID [facility] Last Admin: 04/01/18 17:28 Dose: 20 mg Sodium Chloride (Sodium Chloride 0.9%) 500 mls @ 75 mls/hr IV .Q6H40M [facility] Last Admin: 04/01/18 16:10 Dose: 75 mls/hr Latanoprost (Xalatan Opht) 0 ml OU HS [facility] Last Admin: 03/31/18 21:46 Dose: 2.5 ml Losartan Potassium (Cozaar) 100 mg PO DAILY [facility] Last Admin: 04/01/18 10:15 Dose: 100 mg Metformin HCl (Glucophage) 500 mg PO DAILY [facility] Last Admin: 04/01/18 10:03 Dose: Not Given Pregabalin (Lyrica) 75 mg PO BID [facility] Last Admin: 04/01/18 17:23 Dose: 75 mg Rosuvastatin Calcium (Crestor) 40 mg PO HS [facility] Last Admin: 03/31/18 21:46 Dose: 40 mg Tamsulosin HCl (Flomax) 0.4 mg PO DAILY [facility] Last Admin: 04/01/18 10:15 Dose: 0.4 mg Physical Exam - Constitutional Appears: No Acute Distress - Head Exam Head Exam: ATRAUMATIC, NORMOCEPHALIC - Eye Exam Eye Exam: EOMI - ENT Exam ENT Exam: Mucous Membranes Moist - Neck Exam Neck exam: Positive for: Full Rom - Respiratory Exam Respiratory Exam: Clear to Auscultation Bilateral, NORMAL BREATHING PATTERN. absent: Accessory Muscle Use, Respiratory Distress - Cardiovascular Exam Cardiovascular Exam: RRR, +S1, +S2. absent: Diastolic murmur, Systolic Murmur - GI/Abdominal Exam GI & Abdominal Exam: Normal Bowel Sounds, Soft - Extremities Exam Extremities exam: Positive for: pedal pulses present. Negative for: calf tenderness, pedal edema - Neurological Exam Neurological exam: Oriented x3 Additional comments: pt has weakness in the LUE 4/5 and the LLE 4/5 - Psychiatric Exam Psychiatric exam: Normal Affect, Normal Mood - Skin Skin Exam: Normal Color, Warm Results - Vital Signs Recent Vital Signs: Last Vital Signs Temp 97.4 F L 04/01/18 12:00 Pulse 83 04/01/18 12:00 Resp 19 04/01/18 12:00 BP 115/88 04/01/18 12:00 Pulse Ox 98 04/01/18 12:00 - Labs Result Diagrams: 04/01/18 06:10 04/01/18 06:10 Labs: Laboratory Results - last 24 hr 03/31/18 04/01/18 04/01/18 20:57 06:10 06:10 WBC 7.2 RBC 4.45 Hgb 13.4 Hct 39.1 MCV 87.8 MCH 30.2 MCHC 34.4 RDW 13.8 Plt Count 240 MPV 7.7 Neut % (Auto) 65.2 Lymph % (Auto) 19.7 L [place] % (Auto) 9.7 Eos % (Auto) 4.8 H Baso % (Auto) 0.6 Neut # (Auto) 4.7 Lymph # (Auto) 1.4 [place] # (Auto) 0.7 Eos # (Auto) 0.3 Baso # (Auto) 0.0 Sodium 136 Potassium 4.1 Chloride 104 Carbon Dioxide 27 Anion Gap 9 L BUN 12 Creatinine 0.6 L Est GFR ( Amer) > 60 Est GFR (Non-Af Amer) > 60 POC Glucose (mg/dL) 195 H Random Glucose 146 H Calcium 9.3 Phosphorus 3.1 Magnesium 1.8 Total Bilirubin 0.4 AST 25 ALT 21 D Alkaline Phosphatase 123 Total Protein 6.9 Albumin 3.8 Globulin 3.1 Albumin/Globulin Ratio 1.2 04/01/18 04/01/18 04/01/18 07:19 11:12 16:25 WBC RBC Hgb Hct MCV MCH MCHC RDW Plt Count MPV Neut % (Auto) Lymph % (Auto) [place] % (Auto) Eos % (Auto) Baso % (Auto) Neut # (Auto) Lymph # (Auto) [place] # (Auto) Eos # (Auto) Baso # (Auto) Sodium Potassium Chloride Carbon Dioxide Anion Gap BUN Creatinine Est GFR ( Amer) Est GFR (Non-Af Amer) POC Glucose (mg/dL) 145 H 121 H 168 H Random Glucose Calcium Phosphorus Magnesium Total Bilirubin AST ALT Alkaline Phosphatase Total Protein Albumin Globulin Albumin/Globulin Ratio Assessment & Plan - Assessment and Plan (Free Text) Assessment: recurrent CVA History of Cocaine use, states he quit 1 year ago Plan: CVA Trop 0.0120 ECHO follow up read SALVADOR tomorrow Pt seen, examined, assessment and plan discussed with Dr Alexy Bella PGY1 - Date & Time Date: 04/01/18 Time: 06:00
[2018-04-01] MEDS: Latanoprost 2.5 ml Opht Soln OU SCH (21:47)
--- NOTE | 2018-04-01 22:24 | CARD ---
APPROVED REPORT Date of service: 04/01/2018 EXAM: Two-dimensional and M-mode echocardiogram with Doppler and color Doppler. Other Information Quality : TDSRhythm : INDICATION CVA/TIA s/p Stroke RISK FACTORS Hypertension Hyperlipidemia Diabetes 2D DIMENSIONS IVSd1.2 (0.7-1.1cm)LVDd3.7 (3.9-5.9cm) PWd1.1 (0.7-1.1cm)LA [place]86 (18-58mL) LVDs2.2 (2.5-4.0cm)FS (%) 40.1 % LVEF (%)71.6 (>50%)LVEF (Devine's)56.74 % M-Mode DIMENSIONS Left Atrium (MM)4.64 (2.5-4.0cm)IVSd1.11 (0.7-1.1cm) Aortic Root4.27 (2.2-3.7cm)LVDd4.13 (4.0-5.6cm) Aortic Cusp Exc.2.90 (1.5-2.0cm)PWd1.01 (0.7-1.1cm) FS (%) 32 %LVDs2.79 (2.0-3.8cm) LVEF (%)61 (>50%) Mitral Valve MV E Panbwccy72.3cm/sMV A Yizhqyyc66.7cm/sE/A ratio0.6 TDI Lateral E' Peak V9.73cm/sMedial E' Peak V10.26cm/sE/Lateral E'6.6 E/Medial E'6.3 LEFT VENTRICLE The left ventricle is normal size. There is normal left ventricular wall thickness. Left ventricle systolic function is normal. The Ejection Fraction is >70%. There is normal LV segmental wall motion. Tissue Doppler imaging reveals abnormal left ventricular diastolic dysfunction. RIGHT VENTRICLE The right ventricle is normal size. There is normal right ventricular wall thickness. The right ventricular systolic function is normal. ATRIA The left atrium size is normal. The right atrium size is normal. The interatrial septum is intact with no evidence for an atrial septal defect. AORTIC VALVE The aortic valve is normal in structure. No aortic regurgitation is present. There is no aortic valvular stenosis. MITRAL VALVE The mitral valve is normal in structure. There is no evidence of mitral valve prolapse. There is no mitral valve stenosis. There is no mitral valve regurgitation noted. TRICUSPID VALVE The tricuspid valve is normal in structure. There is no tricuspid valve regurgitation noted. There is no tricuspid valve prolapse or vegetation. There is no tricuspid valve stenosis. PULMONIC VALVE The pulmonic valve is not well visualized. There is no pulmonic valvular regurgitation. GREAT VESSELS The aortic root is normal in size. PERICARDIAL EFFUSION There is no significant pericardial effusion. <Conclusion> Left ventricle systolic function is normal. The Ejection Fraction is >70%. Diastolic dysfunction. No aortic regurgitation is present. There is no mitral valve regurgitation noted. There is no tricuspid valve regurgitation noted.
[2018-04-02 02:33] VITALS: RESP 20
[2018-04-02] MEDS: Sodium Chloride 0.9% 500 ML IV SCH ×4 (05:44→19:00)
[2018-04-02] MEDS: Divalproex 500 mg DR Tab PO SCH ×3 (11:00→17:54)
[2018-04-02] MEDS: Cilostazol 100 mg Tab UD PO SCH ×2 (11:00→17:52)
[2018-04-02] MEDS ORDERED: Lidocaine 4% (Laryng-O-Jet) Kit MM ONE (14:01)
[2018-04-02] MEDS ORDERED: Midazolam 2 MG/2 ML VIAL ONE ×3 (14:12→14:17)
--- NOTE | 2018-04-02 15:15 | CP.PCM.PN ---
Subjective - Date & Time of Evaluation Date of Evaluation: 04/02/18 Time of Evaluation: 10:45 - Subjective Subjective: clinically same Objective - Vital Signs/Intake and Output Vital Signs (last 24 hours): Temp Pulse Resp BP Pulse Ox 97.8 F 80 20 135/82 95 04/02/18 08:00 04/02/18 08:36 04/02/18 08:00 04/02/18 13:03 04/02/18 08:00 - Medications Medications: Current Medications Acetaminophen (Tylenol 325mg Tab) 650 mg PO Q6 PRN PRN Reason: Headache Last Admin: 04/01/18 10:21 Dose: 650 mg Aspirin (Aspirin Chewable) 81 mg PO 2200 [facility] Last Admin: 04/01/18 21:47 Dose: 81 mg Cilostazol (Pletal) 100 mg PO BID [facility] Last Admin: 04/02/18 11:00 Dose: Not Given Divalproex Sodium (Depakote Dr) 1,000 mg PO TID [facility] Last Admin: 04/02/18 14:42 Dose: Not Given Famotidine (Pepcid) 20 mg PO BID [facility] Last Admin: 04/02/18 11:00 Dose: Not Given Sodium Chloride (Sodium Chloride 0.9%) 500 mls @ 75 mls/hr IV .Q6H40M [facility] Last Admin: 04/02/18 13:07 Dose: Not Given Latanoprost (Xalatan Opht) 0 ml OU HS [facility] Last Admin: 04/01/18 21:47 Dose: 2.5 ml Losartan Potassium (Cozaar) 100 mg PO DAILY [facility] Last Admin: 04/02/18 11:00 Dose: Not Given Metformin HCl (Glucophage) 500 mg PO DAILY [facility] Last Admin: 04/02/18 11:00 Dose: Not Given Pregabalin (Lyrica) 75 mg PO BID [facility] Last Admin: 04/02/18 11:00 Dose: Not Given Rosuvastatin Calcium (Crestor) 40 mg PO HS [facility] Last Admin: 04/01/18 21:47 Dose: 40 mg Tamsulosin HCl (Flomax) 0.4 mg PO DAILY [facility] Last Admin: 04/02/18 13:07 Dose: Not Given - Labs Labs: 04/01/18 06:10 04/01/18 06:10 PT 11.5 SECONDS (9.7-12.2) 03/29/18 10:43 INR 1.1 03/29/18 10:43 APTT 41 SECONDS (21-34) H 03/29/18 10:43
--- NOTE | 2018-04-02 16:47 | CP.PCM.PN ---
Subjective - Date & Time of Evaluation Date of Evaluation: 04/02/18 Time of Evaluation: 16:00 - Subjective Subjective: Neuro Follow-Up Note: Mr. Dumont was evaluated this afternoon at bedside. Family present. Pt had undergone a SALVADOR this afternoon with Dr. Tracey. He is doing generally well after the SALVADOR and offers no complaints. He admits to increased strength to his left arm and left leg since his PT session today. He denies any other complaints; no dizziness, visual changes, chest pain, palpitations, sob, cough, abd pain, n/v/d. Objective - Vital Signs/Intake and Output Vital Signs (last 24 hours): Temp Pulse Resp BP Pulse Ox 97.8 F 80 20 135/82 95 04/02/18 08:00 04/02/18 08:36 04/02/18 08:00 04/02/18 13:03 04/02/18 08:00 - Medications Medications: Current Medications Acetaminophen (Tylenol 325mg Tab) 650 mg PO Q6 PRN PRN Reason: Headache Last Admin: 04/01/18 10:21 Dose: 650 mg Aspirin (Aspirin Chewable) 81 mg PO 2200 [facility] Last Admin: 04/01/18 21:47 Dose: 81 mg Cilostazol (Pletal) 100 mg PO BID [facility] Last Admin: 04/02/18 11:00 Dose: Not Given Divalproex Sodium (Depakote Dr) 1,000 mg PO TID [facility] Last Admin: 04/02/18 14:42 Dose: Not Given Famotidine (Pepcid) 20 mg PO BID [facility] Last Admin: 04/02/18 11:00 Dose: Not Given Sodium Chloride (Sodium Chloride 0.9%) 500 mls @ 75 mls/hr IV .Q6H40M [facility] Last Admin: 04/02/18 13:07 Dose: Not Given Latanoprost (Xalatan Opht) 0 ml OU HS [facility] Last Admin: 04/01/18 21:47 Dose: 2.5 ml Losartan Potassium (Cozaar) 100 mg PO DAILY [facility] Last Admin: 04/02/18 11:00 Dose: Not Given Metformin HCl (Glucophage) 500 mg PO DAILY [facility] Last Admin: 04/02/18 11:00 Dose: Not Given Pregabalin (Lyrica) 75 mg PO BID [facility] Last Admin: 04/02/18 11:00 Dose: Not Given Rosuvastatin Calcium (Crestor) 40 mg PO HS [facility] Last Admin: 04/01/18 21:47 Dose: 40 mg Tamsulosin HCl (Flomax) 0.4 mg PO DAILY [facility] Last Admin: 04/02/18 13:07 Dose: Not Given - Labs Labs: 04/01/18 06:10 04/01/18 06:10 PT 11.5 SECONDS (9.7-12.2) 03/29/18 10:43 INR 1.1 03/29/18 10:43 APTT 41 SECONDS (21-34) H 03/29/18 10:43 - Constitutional Appears: Well, Non-toxic, No Acute Distress - Head Exam Head Exam: ATRAUMATIC, NORMAL INSPECTION, NORMOCEPHALIC - Eye Exam Eye Exam: EOMI, Normal appearance, PERRL Pupil Exam: NORMAL ACCOMODATION, PERRL - ENT Exam ENT Exam: Mucous Membranes Moist - Neck Exam Neck Exam: Full ROM, Normal Inspection - Respiratory Exam Respiratory Exam: NORMAL BREATHING PATTERN - GI/Abdominal Exam Additional comments: obese - Extremities Exam Extremities Exam: absent: Calf Tenderness, Full ROM, Pedal Edema Additional comments: Able to move all extremities with weakness to the left arm and left leg (not a new finding; this is residual from a previous stroke per the pt). FROM to right sided extremities. 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 FROM to right sided extremities without motor deficits. No sensory deficits. No dysmetria, ataxia No tremors. Gait not assessed; PT notes reviewed. - Psychiatric Exam Psychiatric exam: Normal Affect, Normal Mood - Skin Skin Exam: Normal Color Assessment and Plan (1) Vertebral artery stenosis Assessment & Plan: Imaging reviewed: -CT Head (03/31/18): Mild chronic appearing microangiopathy. -CT Head (03/30/18): Trace chronic microangiopathy again identified. Exam otherwise unremarkable and stable overall. Follow-up CT or MRI can be performed as clinically warranted. -Repeat CT Head (03/29/18): Stable marginal trace chronic microangiopathy. No interval intracranial hemorrhage, mass effect or cortical edema appreciable. Follow-up MRI available if clinically warranted. -CT Head (03/29/18): Stable minimal age related neuro degenerative change. No acute intracranial findings as compared prior head CT 04/27/2017. Follow-up CT or MRI are available as clinically warranted. -MRI Brain ordered, however, unable to be done 2/2 pt's size. -Neuro IR on case--pt is status post diagnostic cerebral angio this morning with Dr. Ring--findings: Moderate Stenosis of the left Vertebral artery -Cardiology on case; pt is status post SALVADOR with Dr. Tracey--findings: no ASD or PFO -Will f/u with PRU result. -Continue current meds, including Cilostazol 100 mg PO BID. -Continue PT/OT/ST -Notify neuro team of any acute changes in pt's condition. Diamante Sanchez DNP, DIRECTOR OF TRANSPORTATION Case discussed with Dr. Grant Status: Acute
--- NOTE | 2018-04-02 18:55 | CP.PCM.PN ---
Subjective - Date & Time of Evaluation Date of Evaluation: 04/02/18 Time of Evaluation: 14:00 - Subjective Subjective: Pt seen and examined today. Pt has no new complaints before procedure, states his muscle strength in his left arm and leg has improved Objective - Vital Signs/Intake and Output Vital Signs (last 24 hours): Temp Pulse Resp BP Pulse Ox 97.4 F L 78 20 141/93 H 96 04/02/18 15:46 04/02/18 15:46 04/02/18 15:46 04/02/18 15:46 04/02/18 15:46 - Medications Medications: Current Medications Acetaminophen (Tylenol 325mg Tab) 650 mg PO Q6 PRN PRN Reason: Headache Last Admin: 04/01/18 10:21 Dose: 650 mg Aspirin (Aspirin Chewable) 81 mg PO 2200 [facility] Last Admin: 04/01/18 21:47 Dose: 81 mg Cilostazol (Pletal) 100 mg PO BID [facility] Last Admin: 04/02/18 17:52 Dose: 100 mg Divalproex Sodium (Depakote Dr) 1,000 mg PO TID [facility] Last Admin: 04/02/18 17:54 Dose: 1,000 mg Famotidine (Pepcid) 20 mg PO BID [facility] Last Admin: 04/02/18 17:52 Dose: 20 mg Sodium Chloride (Sodium Chloride 0.9%) 500 mls @ 75 mls/hr IV .Q6H40M [facility] Last Admin: 04/02/18 13:07 Dose: Not Given Latanoprost (Xalatan Opht) 0 ml OU HS [facility] Last Admin: 04/01/18 21:47 Dose: 2.5 ml Losartan Potassium (Cozaar) 100 mg PO DAILY [facility] Last Admin: 04/02/18 11:00 Dose: Not Given Metformin HCl (Glucophage) 500 mg PO DAILY [facility] Last Admin: 04/02/18 11:00 Dose: Not Given Pregabalin (Lyrica) 75 mg PO BID [facility] Last Admin: 04/02/18 17:52 Dose: 75 mg Rosuvastatin Calcium (Crestor) 40 mg PO HS [facility] Last Admin: 04/01/18 21:47 Dose: 40 mg Tamsulosin HCl (Flomax) 0.4 mg PO DAILY [facility] Last Admin: 04/02/18 13:07 Dose: Not Given - Labs Labs: 04/01/18 06:10 04/01/18 06:10 PT 11.5 SECONDS (9.7-12.2) 03/29/18 10:43 INR 1.1 03/29/18 10:43 APTT 41 SECONDS (21-34) H 03/29/18 10:43 - Constitutional Appears: No Acute Distress - Head Exam Head Exam: ATRAUMATIC, NORMOCEPHALIC - Eye Exam Eye Exam: EOMI - ENT Exam ENT Exam: Mucous Membranes Moist - Neck Exam Neck Exam: Full ROM - Cardiovascular Exam Cardiovascular Exam: RRR, +S1, +S2. absent: Diastolic murmur, Murmur - GI/Abdominal Exam GI & Abdominal Exam: Soft, Normal Bowel Sounds. absent: Tenderness - Extremities Exam Extremities Exam: Calf Tenderness - Neurological Exam Neurological Exam: Alert, Awake, Oriented x3 - Psychiatric Exam Psychiatric exam: Normal Affect, Normal Mood - Skin Skin Exam: Warm Assessment and Plan - Assessment and Plan (Free Text) Assessment: recurrent CVA History of Cocaine use, states he quit 1 year ago Plan: CVA HA1C 7.2 Trop 0.0120 ECHO 03/31/18 follow up [facility] 04/02/18 shows no signs of ASD or PFO medications ASA pletal sudheer celesteor Pt seen, examined, assessment and plan discussed with Dr Alexy Bella PGY1, Internal Medicine Resident
[2018-04-02] MEDS: Latanoprost 2.5 ml Opht Soln OU SCH (22:01)
[2018-04-03] MEDS: Sodium Chloride 0.9% 500 ML IV SCH ×2 (03:40→08:46)
[2018-04-03 07:53] VITALS: BP 142/95; TEMP 97.4; O2SAT 96
[2018-04-03 08:21] VITALS: PULSE 88
[2018-04-03] MEDS: Divalproex 500 mg DR Tab PO SCH (09:30)
[2018-04-03] MEDS: Cilostazol 100 mg Tab UD PO SCH (09:30)
--- NOTE | 2018-04-03 16:57 | IP.NPCORE ---
Stroke Core Measure - CQM - Stroke Antithrombotic Prescribed: Yes Anticoagulation Prescribed for Atrial Flutter, Atrial Fibrillation and History of:: Not Applicable Statin prescribed: Yes
== END 2018-04-03 13:06 | disposition home health service (06) | DRG 880 ==
LOC: C.ER 10:35 → C.9E 14:12 → C.9I 14:33 → C.6T 04-01 22:22
PROVIDERS: ADMIT Internal Medicine Nephrology; ATTEND Internal Medicine Nephrology
DX: I63.9 Cerebral infarction, unspecified (principal); I65.02 Occlusion and stenosis of left vertebral artery; R29.810 Facial weakness; F31.9 Bipolar disorder, unspecified; I11.9 Hypertensive heart disease without heart failure; I51.7 Cardiomegaly; I67.82 Cerebral ischemia; E11.9 Type 2 diabetes mellitus without complications; H40.9 Unspecified glaucoma; G81.94 Hemiplegia, unspecified affecting left nondominant side; R47.81 Slurred speech; E78.5 Hyperlipidemia, unspecified; E78.00 Pure hypercholesterolemia, unspecified; Z86.73 Personal history of transient ischemic attack (TIA), and cerebral infarction without residual deficits; Z90.49 Acquired absence of other specified parts of digestive tract; Z79.82 Long term (current) use of aspirin

== ENCOUNTER 2018-07-04 17:27 | Inpatient (IN) | payer MEDICAID, OTHER ==
[2018-07-04 17:28] VITALS: BMI 35.3
[2018-07-04 18:00] LABS: BASO % 0.7 % (0.0-2.0); EOS # 0.4 K/uL (0.0-0.7); EOS % 5.1 % (0.0-4.0); LYMPH # 1.8 K/uL (1.0-4.3); LYMPH % 26.3 % (20.0-40.0); MEAN CELL VOLUME 86.4 fL (80.0-94.0); MEAN CORPUSCULAR HEMOGLOBIN 29.6 pg (27.0-31.0); MEAN CORPUSCULAR HGB CONC 34.2 g/dL (33.0-37.0); MEAN PLATELET VOLUME 7.5 fL (7.2-11.7); MONO # 0.8 K/uL (0.0-0.8); NEUT # 3.9 K/uL (1.8-7.0); NEUT % 55.9 % (50.0-75.0); NRBC % 0.3 % (0.0-2.0); RBC 4.74 Mil/uL (4.40-5.90); RED CELL DISTRIBUTION WIDTH 14.2 % (11.5-14.5); WHITE BLOOD COUNT 6.9 K/uL (4.8-10.8)
[2018-07-04] MEDS ORDERED: Sodium Chloride 0.9% 1,000 ML IV SCH (18:00)
[2018-07-04] MEDS ORDERED: Iodixanol 320 MG/ML 100 ML BOTTLE IV ONE (18:07)
--- NOTE | 2018-07-04 18:07 | C.PDOC ---
History Of Present Illness 58 year old male with PMHx HTN, diabetes, bipolar disorder and stroke (March 2018, received tPA at [facility], [place]) presents to the ED BIBA for evaluation of frontal headache, difficulty hearing from the right ear, tingling sensation in the right side of face and feeling sweaty that began today at 1700. Reports he was at the dental office when the symptoms started. Patient is not sure if he had any extremity weakness because he has residual left sided extremity weakness from prior stroke. As per EMS, witnesses state he was slurring his words. However, patient reports he does not remember that. Pt states he is currently asymptomatic. Denies any falls or recent illness. Denies any chest pain, shortness of breath, headache, new weakness or numbness, or any other symptoms. Time Seen by Provider: 07/04/18 17:30 Chief Complaint (Nursing): Weakness/Neurological Deficit History Per: Patient History/Exam Limitations: no limitations Onset/Duration Of Symptoms: Hrs Current Symptoms Are (Timing): Still Present Fall Associated With With Symptoms: No Past Medical History Reviewed: Historical Data, Nursing Documentation, Vital Signs Vital Signs: Last Vital Signs Temp 98.1 F 07/04/18 17:45 Pulse 90 07/04/18 17:45 Resp 22 07/04/18 17:45 BP 165/96 H 07/04/18 17:45 Pulse Ox 98 07/04/18 17:45 Primary Care Provider: Christos Lizarraga - Medical History PMH: Bipolar Disorder, HTN, Hypercholesterolemia, TIA Denies: Chronic Kidney Disease Surgical History: Appendectomy, Endoscopy - [facility] Procedures INSPECTION OF LOWER INTESTINAL TRACT, PERC ENDO APPROACH (03/14/17) INTRODUCE OTH THROMBOLYTIC IN PERIPH VEIN, PERC (03/29/18) RESECTION OF APPENDIX, OPEN APPROACH (03/14/17) Family History: States: No Known Family Hx - Social History Hx Alcohol Use: No Hx Substance Use: No (cocaine clean x 3 years) - Immunization History Hx Tetanus Toxoid Vaccination: (unk) Hx Influenza Vaccination: Yes Hx Pneumococcal Vaccination: Yes Review Of Systems Except As Marked, All Systems Reviewed And Found Negative. Constitutional: Negative for: Fever, Chills ENT: Positive for: Other (difficulty hearing from right ear ) Cardiovascular: Negative for: Chest Pain Respiratory: Negative for: Shortness of Breath Neurological: Positive for: Headache, Other (tingling sensation on right side of face ) Physical Exam - Physical Exam Appears: Non-toxic, No Acute Distress Skin: Warm, Dry, No Rash Head: Atraumatic, Normacephalic Eye(s): bilateral: Normal Inspection, PERRL, EOMI Nose: Normal Oral Mucosa: Moist Neck: Supple Chest: Symmetrical, No Tenderness Cardiovascular: Rhythm Regular Respiratory: No Rales, No Rhonchi, No Wheezing, Other (good air movement, CTA B/L ) Gastrointestinal/Abdominal: Soft, No Tenderness Extremity: Bilateral: Atraumatic, Normal Color And Temperature, Normal ROM Neurological/Psych: Oriented x3, Normal Speech, Normal Motor, Normal Sensation, No Other (facial droop ) Gait: Steady ED Course And Treatment - Laboratory Results Result Diagrams: 07/04/18 17:56 07/04/18 17:56 ECG: Interpreted By Me, Viewed By Me ECG Rhythm: Sinus Rhythm Interpretation Of ECG: First degree AV block, Normal axis. No ST/T wave elevations or depressions Rate From EC O2 Sat by Pulse Oximetry: 98 (on RA) - CT Scan/US CT head Other Rad Studies (CT/US): Read By Radiologist, Radiology Report Reviewed CT/US Interpretation: Name:WILL ZARATE Exam Date:July 04, 2018 5:55:34 PM EDT. Modality Type:CT. Description:CTA HEAD/NECK (CODE STROKE). Gender:M Laterality:Not applicable. :64 Referring Physician:FARZANEH FLORES. EXAM: CT Head Without IV contrast. CLINICAL HISTORY: CODE STROKE. TECHNIQUE: Axial computed tomography images of the head/brain without intravenous contrast. 0.00 mGy-cm. COMPARISON: 03/29/2018. FINDINGS: BRAIN. No acute intraparenchymal hemorrhage. No mass lesion. No CT evidence for acute territorial infarct. No midline shift or extra- axial collections. VENTRICLES: No hydrocephalus. ORBITS: The orbits are unremarkable. SINUSES AND MASTOIDS: The paranasal sinuses and mastoid air cells are clear. BONES: No fracture. SOFT TISSUES: Unremarkable. IMPRESSION: No acute intracranial abnormality. Dr. Flores was notified with the results of this study at 6:18 PM. . Electronically signed on July 04, 2018 6:22:52 PM EDT by: Jose C Woods M.D., Certified by ABR, Diagnostic Radiology. CTA head/neck Other Rad Studies (CT/US): Read By Radiologist, Radiology Report Reviewed CT/US Interpretation: Name:WILL ZARATE Exam Date:July 04, 2018 6:22:45 PM EDT. Modality Type:CT. Description:CTA HEAD/NECK (CODE STROKE). Gender:M Laterality:Not applicable. :62 Referring Physician:FARZANEH FLORES. EXAM: CTA Head and Neck with Intravenous Contrast. CLINICAL HISTORY: CODE STROKE. TECHNIQUE: Axial CTA images of the head and neck performed with intravenous contrast. MIP reconstructed images were created and reviewed. CONTRAST: With; 100MLS VISI 320 was injected intravenously without incident. COMPARISON: None provided. FINDINGS: VASCULATURE: NECK: COMMON CAROTID ARTERIES. No significant canal stenosis. No dissection or occlusion. EXTERNAL CAROTID ARTERIES. Patent. NECK: INTERNAL CAROTID ARTERIES. No stenosis by NASCET criteria. No dissection or occlusion. VERTEBRAL ARTERIES. No significant canal stenosis. No dissection or occlusion. HEAD: ANTERIOR CEREBRAL ARTERIES. No significant stenosis. No occlusion. No aneurysm. MIDDLE CEREBRAL ARTERIES. No significant stenosis. No occlusion. No aneurysm. POSTERIOR CEREBRAL ARTERIES. No significant stenosis. No occlusion. No aneurysm. BASILAR ARTERY. No significant stenosis. No occlusion. No aneurysm. OTHER: SOFT TISSUES. No acute finding. BONES. No acute osseous abnormality. IMPRESSION: Unremarkable CTA of the head and neck. . Electronically signed on July 04, 2018 6:42:59 PM EDT by: Cedrick Cotter M.D., M.B.A., Certified By [employer]BR. Fellowship Trained MRI and CT Specialist. rTPA Inclusion/Exclusion - Refusal of Treatment Patient Refused Treatment: No - Inclusion Criteria for Altepase All of the below criteria for inclusion were reviewed: Yes Patient is 18 years or Older: Yes The Clinical Diagnosis of Ischemic Stroke That is Causing a Potentially Disabling Neurological Deficit: No Time of Onset is Well Established to be Less Than 270 Minute Before Treatment Would Begin: Yes Risk/Benefit Discussed With Patient/Family Member Present: No Medical Decision Making Medical Decision Making: Plan - CTA head/neck - CT head - EKG - CXR - IV fluids - Bloodwork - Code Stroke [address] Grant. Agrees to admit patient. Recommends MRI. 18:55 accepts patient for admission. Patient is in agreement with admission. 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 - Scribe Statement The provider has reviewed the documentation as recorded by the Scribe Nellie Oh All medical record entries made by the Scribe were at my direction and personally dictated by me. I have reviewed the chart and agree that the record accurately reflects my personal performance of the history, physical exam, medical decision making, and the department course for this patient. I have also personally directed, reviewed, and agree with the discharge instructions and disposition. Decision To Admit - Pt Status Changed To: Hospital Disposition Of: Inpatient - Admit Certification Admit to Inpatient:: After my assessment, the patient will require hospitalization for at least two midnights. This is because of the severity of symptoms shown, intensity of services needed, and/or the medical risk in this patient being treated as an outpatient. - InPatient: Physician Admission Certification: I certify that this patient requires 2 or more midnights of care for the following reason:: Patient has TIA, h/o CVA x3 - . Bed Request Type: Telemetry Patient Diagnosis: Dizziness, Muscle weakness, Paresthesia, TIA (transient ischemic attack) NIHSS scale Date Performed: 07/04/18 Time Performed: 18:35 When Was NIHSS Performed: Baseline Level of Consciousness: 0=Alert LOC to Questions: 0=Answers both comments correct LOC to commands: 0=Performs tasks both correctly Best Gaze: 0=Normal Visual: 0=No visual loss Facial: 0=Normal Motor Arm - Left: 1=Drift before 10 seconds Motor Arm - Right: 0=No drift Motor Leg - Left: 1=Drift before 5 seconds Motor Leg - Right: 0=No drift Limb Ataxia: 1=Present in one limb Sensory: 0=Normal Best Language: 0=No aphasia Dysarthria: 0=Normal articulation Extinction & Inattention (Neglect): 0=Normal, no object Score: 3 - Notes Notes: Per patient, he is at his baseline for LUE and LLE.
[2018-07-04 18:08] LABS: PARTIAL THROMBOPLASTIN TIME 37.6 SECONDS (21-34); PROTHROMBIN TIME 11.1 SECONDS (9.7-12.2)
[2018-07-04 18:15] LABS: ALB/GLOB RATIO 1.1 (1.0-2.1); ALBUMIN 4.3 g/dL (3.5-5.0); ALT/SGPT 26 U/L (21-72); AST/SGOT 27 U/L (17-59); BLOOD UREA NITROGEN 12 mg/dL (9-20); CALCIUM 10.1 mg/dl (8.6-10.4); GFR NON-AFRICAN AMERICAN > 60; HDL CHOLESTEROL 54 mg/dL (30-70)
[2018-07-04 18:26] LABS: LDL CHOLESTEROL 67 mg/dL (0-129)
--- NOTE | 2018-07-04 18:39 | CT ---
Date of service: 07/04/2018 PROCEDURE: CT HEAD WITHOUT CONTRAST. HISTORY: Code Stroke Weakness, headache are presenting symptoms. COMPARISON: 03/29/2018, 03/30/2018 and 03/31/2018. TECHNIQUE: Axial computed tomography images were obtained through the head/brain without intravenous contrast. Supplemental Coronal and Sagittal projections created and reviewed. Radiation dose: Total exam DLP = 1102.81 mGy-cm. This CT exam was performed using one or more of the following dose reduction techniques: Automated exposure control, adjustment of the mA and/or kV according to patient size, and/or use of iterative reconstruction technique. FINDINGS: HEMORRHAGE: No intracranial hemorrhage. BRAIN: No mass effect or edema. No atrophy or chronic microvascular ischemic changes. VENTRICLES: Unremarkable. No hydrocephalus. CALVARIUM: Unremarkable. PARANASAL SINUSES: Unremarkable as visualized. No significant inflammatory changes. MASTOID AIR CELLS: Unremarkable as visualized. No inflammatory changes. OTHER FINDINGS: None. IMPRESSION: No acute intracranial abnormalities. No significant findings to account for the clinical presentation. No significant interval change compared to the prior examination(s). Code stroke protocol: Study completed 17:57 Radiologist notified radiologist was not notified of the code stroke protocol in place for this patient. Results conveyed verbally at 18:35. I discussed the findings with Dr. Vines, confirming this was, in fact, a code stroke study as requested
--- NOTE | 2018-07-04 18:57 | RAD ---
HISTORY: Code Stroke COMPARISON: Chest x-ray performed 03/29/18 TECHNIQUE: Chest, one view. FINDINGS: LUNGS: No focal consolidation. 9 mm calcification noted at the left lung base. Please note that chest x-ray has limited sensitivity for the detection of pulmonary masses. PLEURA: No significant pleural effusion identified. No definite pneumothorax . CARDIOVASCULAR: Heart size appears within normal limits. No significant atherosclerotic calcification present. OSSEOUS STRUCTURES: Degenerative changes. VISUALIZED UPPER ABDOMEN: Unremarkable. OTHER FINDINGS: None. IMPRESSION: No focal consolidation. 9 mm calcification noted at the left lung base, possibly granuloma.
[2018-07-04] MEDS: Sodium Chloride 0.9% 1,000 ML IV SCH (19:38)
--- NOTE | 2018-07-04 23:12 | CP.PCM.HP ---
Past Patient History - Infectious Disease Hx of Infectious Diseases: None - Past Medical History & Family History Past Medical History?: Yes - Past Social History Smoking Status: Former Smoker - CARDIAC Hx Hypercholesterolemia: Yes Hx Hypertension: Yes - PULMONARY Hx Respiratory Disorders: No - NEUROLOGICAL Hx Transient Ischemic Attacks (TIA): Yes - HEENT Hx HEENT Problems: Yes Hx Cataracts: Yes Hx Glaucoma: Yes - RENAL Hx Chronic Kidney Disease: No - ENDOCRINE/METABOLIC Hx Endocrine Disorders: Yes Hx Diabetes Mellitus Type 2: Yes Other/Comment: Adrenal tumor - HEMATOLOGICAL/ONCOLOGICAL Hx Blood Disorders: No - INTEGUMENTARY Hx Dermatological Problems: No - MUSCULOSKELETAL/RHEUMATOLOGICAL Hx Musculoskeletal Disorders: Yes Hx Falls: Yes (from effects of TIA) - GASTROINTESTINAL Hx Gastrointestinal Disorders: No - GENITOURINARY/GYNECOLOGICAL Hx Genitourinary Disorders: Yes Hx Prostate Problems: Yes Other/Comment: proteinuria - PSYCHIATRIC Hx Bipolar Disorder: Yes Hx Substance Use: Yes - SURGICAL HISTORY Hx Appendectomy: Yes - ANESTHESIA Hx Anesthesia: Yes Hx Anesthesia Reactions: No Hx Malignant Hyperthermia: No Meds Allergies/Adverse Reactions: Allergies Allergy/AdvReac Type Severity Reaction Status Date / Time Penicillins Allergy SHORTNESS Verified 04/09/17 12:29 OF BREATH Physical Exam - Constitutional Appears: Well - Head Exam Head Exam: ATRAUMATIC, NORMAL INSPECTION, NORMOCEPHALIC - Eye Exam Eye Exam: EOMI, Normal appearance, PERRL Pupil Exam: NORMAL ACCOMODATION, PERRL - ENT Exam ENT Exam: Mucous Membranes Moist, Normal Exam - Neck Exam Neck exam: Positive for: Normal Inspection - Respiratory Exam Respiratory Exam: Decreased Breath Sounds - Cardiovascular Exam Cardiovascular Exam: REGULAR RHYTHM, +S1, +S2 - GI/Abdominal Exam GI & Abdominal Exam: Diminished Bowel Sounds, Soft - Rectal Exam Rectal Exam: Deferred - Neurological Exam Neurological exam: Oriented x3 Results - Vital Signs Recent Vital Signs: Last Vital Signs Temp 98.2 F 07/04/18 20:42 Pulse 95 H 07/04/18 20:42 Resp 18 07/04/18 20:42 BP 131/78 07/04/18 20:42 Pulse Ox 96 07/04/18 20:42 - Labs Result Diagrams: 07/04/18 17:56 07/04/18 17:56 Labs: Laboratory Results - last 24 hr 07/04/18 07/04/18 07/04/18 17:56 17:56 17:56 WBC 6.9 RBC 4.74 Hgb 14.0 Hct 40.9 MCV 86.4 MCH 29.6 MCHC 34.2 RDW 14.2 Plt Count 260 MPV 7.5 Neut % (Auto) 55.9 Lymph % (Auto) 26.3 [place] % (Auto) 12.0 H Eos % (Auto) 5.1 H Baso % (Auto) 0.7 Neut # (Auto) 3.9 Lymph # (Auto) 1.8 [place] # (Auto) 0.8 Eos # (Auto) 0.4 Baso # (Auto) 0.0 PT 11.1 INR 1.0 APTT 37.6 H Sodium 141 Potassium 3.8 Chloride 102 Carbon Dioxide 28 Anion Gap 15 BUN 12 Creatinine 0.7 L Est GFR ( Amer) > 60 Est GFR (Non-Af Amer) > 60 Random Glucose 135 H Hemoglobin A1c Calcium 10.1 Total Bilirubin 0.4 AST 27 ALT 26 Alkaline Phosphatase 151 H D Troponin I < 0.0120 Total Protein 8.1 Albumin 4.3 Globulin 3.8 Albumin/Globulin Ratio 1.1 Triglycerides 146 D Cholesterol 140 LDL Cholesterol Direct 67 HDL Cholesterol 54 Blood Type Antibody Screen 07/04/18 07/04/18 17:56 17:57 WBC RBC Hgb Hct MCV MCH MCHC RDW Plt Count MPV Neut % (Auto) Lymph % (Auto) [place] % (Auto) Eos % (Auto) Baso % (Auto) Neut # (Auto) Lymph # (Auto) [place] # (Auto) Eos # (Auto) Baso # (Auto) PT INR APTT Sodium Potassium Chloride Carbon Dioxide Anion Gap BUN Creatinine Est GFR ( Amer) Est GFR (Non-Af Amer) Random Glucose Hemoglobin A1c 7.4 H Calcium Total Bilirubin AST ALT Alkaline Phosphatase Troponin I Total Protein Albumin Globulin Albumin/Globulin Ratio Triglycerides Cholesterol LDL Cholesterol Direct HDL Cholesterol Blood Type O POSITIVE Antibody Screen Negative
[2018-07-05 00:13] VITALS: RESP 20
[2018-07-05] MEDS: Sodium Chloride 0.9% 1,000 ML IV SCH (05:57)
[2018-07-05] MEDS: (Novolog) Insulin Aspart, Recombinant 100 u/ml 10 ml vial SC SCH ×3 (07:46→17:26)
[2018-07-05] MEDS ORDERED: (Lantus) Insulin Glargine, Recombinant SC SCH (10:00)
[2018-07-05] MEDS ORDERED: Pantoprazole 40 mg EC Tab PO SCH (10:00)
[2018-07-05] MEDS ORDERED: Magnesium Oxide 400 mg Tab UD PO SCH (10:00)
[2018-07-05] MEDS ORDERED: Enoxaparin 40 mg Syringe SC SCH (10:00)
[2018-07-05] MEDS: Divalproex 500 mg DR Tab PO SCH ×3 (11:19→17:27)
--- NOTE | 2018-07-05 14:11 | CT ---
Date of service: 07/04/2018 PROCEDURE: CT Angiography of the Brain. HISTORY: code stroke COMPARISON: None available. TECHNIQUE: CT angiography of the intracranial arteries was performed. Coronal and sagittal maximum intensity projection reformated images were generated. Radiation dose: Total exam DLP = 744.11 mGy-cm. This CT exam was performed using one or more of the following dose reduction techniques: Automated exposure control, adjustment of the mA and/or kV according to patient size, and/or use of iterative reconstruction technique. FINDINGS: INTERNAL CEREBRAL ARTERIES: Unremarkable. The skull base, petrous, cavernous and supraclinoid segments are bilaterally widely patent. ANTERIOR CEREBRAL ARTERIES: Unremarkable. A1 and A2 segments are widely patent. Smaller distal branches unremarkable, as visualized. MIDDLE CEREBRAL ARTERIES: Unremarkable. M1 and M2 segments are widely patent. Perisylvian branches grossly symmetric. POSTERIOR CIRCULATION: Basilar Artery: Unremarkable. Distal Vertebral Arteries: Unremarkable. Posterior Cerebral Arteries: Unremarkable. Posterior Inferior Cerebellar Arteries: Unremarkable. ANEURYSM/ VASCULAR MALFORMATIONS: None. OTHER FINDINGS: None. IMPRESSION: Unremarkable CT Angiography of the Brain. PROCEDURE: CT Angiography of the neck with contrast HISTORY: code stroke COMPARISON: None. TECHNIQUE: Contiguous axial images of the neck were obtained from the level of the skull-base to the superior mediastinum in the arteriographic phase of enhancement. Coronal and sagittal reformats or also generated. IV contrast dose: 100 cc of Visipaque Radiation dose: Total exam DLP = 744.11 mGy-cm. This CT exam was performed using one or more of the following dose reduction techniques: Automated exposure control, adjustment of the mA and/or kV according to patient size, and/or use of iterative reconstruction technique. FINDINGS: RIGHT CAROTID ARTERIES: Common Carotid Artery: Normal. Carotid Bifurcation: Normal. Internal Carotid Artery:Normal. External Carotid Artery (proximal branches): Normal. LEFT CAROTID ARTERIES: Common Carotid Artery: Normal. Carotid Bifurcation: Normal. Internal Carotid Artery:Normal. External Carotid Artery (proximal branches): Normal. VERTEBRAL ARTERIES: Right Vertebral Artery: Normal. Left Vertebral Artery: Normal. OTHER FINDINGS: Minimal aortic calcification. The report concurs with the preliminary [facility] report IMPRESSION: Normal CT Angiography of the neck.
[2018-07-05 17:29] VITALS: BP 135/79
[2018-07-05] MEDS ORDERED: Latanoprost 2.5 ml Opht Soln OU SCH (22:00)
[2018-07-06 00:03] VITALS: PULSE 84; TEMP 97.2
[2018-07-06 13:27] VITALS: O2SAT 98
== END 2018-07-05 20:00 | disposition home or self-care (01) | DRG 832 ==
LOC: C.ER 17:27 → C.6T 19:22
PROVIDERS: ADMIT Internal Medicine Nephrology; ATTEND Internal Medicine Nephrology
DX: G45.9 Transient cerebral ischemic attack, unspecified (principal); I69.398 Other sequelae of cerebral infarction; H40.9 Unspecified glaucoma; E11.9 Type 2 diabetes mellitus without complications; E78.00 Pure hypercholesterolemia, unspecified; F31.9 Bipolar disorder, unspecified; I10 Essential (primary) hypertension; Z87.891 Personal history of nicotine dependence; Z90.49 Acquired absence of other specified parts of digestive tract; Z79.4 Long term (current) use of insulin